=== PATIENT | female | born 1960 | race Caucasian/White ===

== ENCOUNTER 2017-06-25 10:16 | Inpatient (IN) ==
[2017-06-25] MEDS ORDERED: 0.9 % Sodium Chloride 1,000 ML IVC ONE (11:00)
[2017-06-25] MEDS ORDERED: methylPREDNISolone 125 MG/2 ML VIAL IVP ONE (11:00)
[2017-06-25] MEDS ORDERED: levoFLOXacin 750 MG TABLET PO ONE (11:00)
[2017-06-25] MEDS ORDERED: Ipratropium/Albuterol Neb 3 ML IH ONE (11:01)
[2017-06-25] MEDS ORDERED: Ipratropium/Albuterol Neb 3 ML ONE (11:02)
[2017-06-25 11:12] LABS: Basophils % 0.5 %; Eosinophils # 0.1 K/mcL (0.0-0.6); Eosinophils % 1.1 %; Hematocrit 44.1 % (35.3-44.9); Hemoglobin 14.6 g/dL (11.5-15.4); Immature Granulocytes % 0.4 % (0-4); Lymphocytes # 2.7 K/mcL (0.6-4.6); Lymphocytes % 33.7 %; Mean Corpuscular HGB Conc 33.1 g/dL (31.6-35.5); Mean Corpuscular Hemoglobin 29.4 pg (28.0-33.3); Mean Corpuscular Volume 88.9 fL (83.0-100.0); Mean Platelet Volume 9.4 fL (9.4-12.4); Monocytes # 0.3 K/mcL (0.0-1.3); Monocytes % 4.1 %; Neutrophils # 4.9 K/mcL (1.6-8.9); Platelet Count 231 K/mcL (140-400); Red Blood Count 4.96 M/mcL (3.82-4.97); Segmented Neutrophils % 60.2 %
[2017-06-25 11:18] LABS: INR 0.9; Prothrombin Time 9.2 Seconds (9.4-12.1)
[2017-06-25 11:21] LABS: Activated Partial Thrombo Time 27.3 Seconds (26.0-36.0)
[2017-06-25 11:33] LABS: BUN/Creatinine Ratio 24 (6-26); Blood Urea Nitrogen 15 mg/dL (6-20); Calcium 9.4 mg/dL (8.6-10.3); Carbon Dioxide 24 mEq/L (23-29); Chloride 103 mEq/L (98-107); Glucose 205 mg/dL (70-105); Osmolality,Calculated 287 (280-300); Potassium 4.2 mEq/L (3.5-5.1); Sodium 135 mEq/L (136-145); eGFR For Non-African Americans > 60 (> 60)
[2017-06-25] MEDS ORDERED: Azithromycin 500 MG in D5% in Water 250 ML IVPB ONE (11:49)
[2017-06-25 12:36] LABS: Bilirubin,Urine Negative (Negative); Blood,Urine Negative (Negative); Clarity,Urine Clear (Clear); Color,Urine Yellow (Yellow); Glucose,Urine (UA) 100 mg/dL (Normal); Ketones,Urine Negative (Negative); Leukocyte Esterase,Urine Negative (Negative); Nitrite,Urine Negative (Negative); Protein,Urine Negative (Neg-Trace); Specific Gravity,Urine 1.009 (1.010-1.025); Urobilinogen,Urine Normal (Normal)
--- NOTE | 2017-06-25 14:16 | Emergency Department Note ---
Disposition Clinical Impression: Acute exacerbation of chronic obstructive airways disease, Hypoxia Disposition: Admitted As Inpatient Condition: Fair Referrals: Patti Mccarty CNP [Primary Care Provider] - Time of Disposition: 14:32 SOB HPI - General Chief Complaint: ED Shortness of Breath/Dyspnea Stated Complaint: SOB/CP Time Seen by Provider: 06/25/17 10:29 Source: patient Mode of arrival: wheelchair Limitations: no limitations Nursing Notes Reviewed: Yes Vital Signs Reviewed: Yes - History of Present Illness Patient presents from her proposal coordinator office for evaluation of shortness of breath. Patient was seen in the facility today and she had a pulse ox in the 60 % range. Concern about a severe COPD exacerbation versus other etiology recommended she come to the emergency room. Over the last several days the patient has been describing other symptoms for which have been causing her to have some moderate respiratory distress. Pt Subjective Complaint: shortness of breath Onset (ago): day(s) Severity: moderate Consistency/Duration: constant Improves with: nothing Worsens with: lying flat, exertion Known history of: COPD Associated symptoms: Reports: chest pain, cough, wheezing Cough present: Yes Cough Description: Voluntary Cough Frequency: Intermittent Sputum production: No - Related Data Home Medications Medication Instructions Recorded Confirmed Albuterol Sulfate [Ventolin Hfa] 2 puff IH Q4H PRN 06/12/17 06/25/17 Alogliptin Benzoate [Alogliptin] 25 mg PO DAILY 06/12/17 06/25/17 Atorvastatin [Lipitor] 40 mg PO HS 06/12/17 06/25/17 Cholecalciferol (D-3) [Vitamin D] 1,000 mg PO DAILY 06/12/17 06/25/17 Gabapentin [Neurontin] 300 mg PO TID 06/12/17 06/25/17 Metformin HCl [Glucophage] 1,000 mg PO BID 06/12/17 06/25/17 Omeprazole [PriLOSEC] 20 mg PO DAILY 06/12/17 06/25/17 Ropinirole HCl [Requip] 0.5 mg PO HS 06/12/17 06/25/17 Tizanidine HCl 4 mg PO HS 06/12/17 06/25/17 Umeclidinium [place] [Incruse 1 puff IH DAILY 06/12/17 06/25/17 Ellipta] Venlafaxine HCl [Venlafaxine HCl 75 mg PO DAILY 06/12/17 06/25/17 ER] Previous Rx's Medication Instructions Recorded OxyCODONE/APAP 5/325 [Percocet 1 each PO Q6HR PRN 7 Days #14 06/12/17 5/325 MG] tablet Allergies Allergy/AdvReac Type Severity Reaction Status Date / Time Penicillins Allergy Swelling Verified 06/12/17 10:35 of Lip/Tongue/Throat acetaminophen [From Lortab] AdvReac Nausea Verified 06/12/17 10:35 hydrocodone [From Lortab] AdvReac Nausea Verified 06/12/17 10:35 levofloxacin [From Levaquin] AdvReac See Verified 06/12/17 10:35 Comments All systems ED: reviewed and negative except as stated. Review of Systems: As Per HPI Constitutional: Denies: fever, chills Cardiovascular: Reports: chest pain, palpitations, dyspnea on exertion. Denies : orthopnea, edema Respiratory: Reports: cough, dyspnea, wheezes. Denies: hemoptysis, stridor, sputum production Gastrointestinal: Denies: nausea, vomiting, diarrhea Genitourinary: Denies: urgency, dysuria Musculoskeletal: Denies: back pain, neck pain Neurological: Denies: headache, weakness Endocrine: Denies: fatigue Past Medical History - Past Medical History Attestation: Yes The following information was validated with the patient. Source: patient Medical history: Reports: COPD, diabetes, hyperlipidemia Surgical history: Reports: other Psychiatric history: Reports: anxiety, depression [employer] history: Reports: bilateral tubal ligation - Social History Smoking Status: Current every day smoker Smokeless Tobacco Status: No Alcohol use: Reports: none Drug use: Reports: none Physical Exam - General Limitations: no limitations General appearance: alert - Head Head exam: atraumatic, normocephalic, normal inspection - Neck Neck exam: Present: normal inspection, full ROM, trachea midline - Chest Chest inspection: Present: normal inspection, symmetric chest wall rise - Respiratory Respiratory exam: Present: respiratory distress, wheezes, accessory muscle use. Absent: stridor - Cardiovascular Cardiovascular exam: Present: regular rate, normal rhythm, normal heart sounds - Abdominal Exam Abdominal exam: Present: soft, Non-Tender, normal bowel sounds. Absent: tenderness, distention, guarding, rebound, rigidity - Extremities Exam Extremities exam: Present: normal inspection, full ROM, normal capillary refill. Absent: tenderness, pedal edema - Back Exam Back exam: Present: normal inspection, full ROM. Absent: tenderness - Neurological Exam Neurological exam: Present: alert, oriented X3, CN II-XII intact, normal gait - Skin Skin exam: Present: warm, dry, intact, normal color Course Course Narrative: Patient seen and examined the time of arrival. See history of present illness. 57-year-old female presents emergency room with complaint of hypoxia and increased work of breathing chest discomfort and shortness of breath. Patient was seen her proposal coordinator office today. They are concerned and called over the emergency room recommend the patient come for evaluation. On presentation here patient is sitting upright in the bed she has significant orthopnea. She feels that there is a tightness inside of her chest and does not want to take a full breath). Her pulse ox drops into the 60 percentile range when she is taking off her nasal cannula. Patient does not have oxygen at home. Vital signs appear to be stable at this time. Her lungs are significantly diminished at this point. She does not move air very well. She denies any reproducible chest pain on exam. Her abdomen is soft nontender nondistended no pulsatile lesions or masses. Patient will be provided breathing treatments steroids in reevaluation here in the emergency room. CT angiography an EKG on cardiac evaluation will be completed at the request of proposal coordinator. Disposition will be admission off over definitive management. IV azithromycin will be started in the emergency room. She does have clinical allergies to levofloxacin and has significant anaphylactic reaction to beta lactams. The LAD on any adjuvant of antibiotics as needed for symptomatic control. Patient is otherwise resting comfortably in the bed but does have some positional orthopnea and tightness in her chest wall. Symptoms present for greater than 3 days and a negative cardiac evaluation here definitively rules out cardiac related illness or disease. Disposition will be determined once the workup is completed and established. - Reevaluation(s) Reevaluation #1: Patient's labs are unremarkable this point. CT angiography confirms it appears to be significant emphysematous disease. The treatments were given on steroids the patient has some mild resolution of the symptoms was still sitting upright in the bed. Troponin is negative. Hospitalist was paged at this time. Admission process. No other acute issues noted this time. Time: 14:28 Reevaluation #2: Patient was discussed with the hospitalist Dr. Garcia. no other recommendations are se is noted this time. Patient willbe admitted for definitive management of what appears to be COPD exacerban and hypoxia Time: 15:09 Vital Signs Temperature 98 F 06/25/17 10:17 Pulse Rate 88 06/25/17 10:17 Respiratory Rate 20 06/25/17 10:17 Blood Pressure 154/97 06/25/17 10:17 O2 Sat by Pulse Oximetry 99 06/25/17 10:17 Temperature 98 F 06/25/17 10:17 Pulse Rate 89 06/25/17 13:36 Respiratory Rate 20 06/25/17 13:36 Blood Pressure 147/95 06/25/17 13:36 O2 Sat by Pulse Oximetry 94 06/25/17 13:36 Oxygen Delivery Oxygen Delivery Nasal Cannula Shortness of Breath/Dyspnea - MDM Narrative Medical decision making narrative: Patient has COPD exacerbation, hypoxia, emphysematous disease - Medical Records Medical records reviewed: Yes I reviewed the patient's medical records. - Lab Data Lab results reviewed: Yes I reviewed the patient's lab results. Result diagrams: 06/25/17 10:50 06/25/17 10:50 Lab Results 06/25/17 06/25/17 06/25/17 Range/Units 10:50 10:50 10:50 WBC 8.1 (4.3-11.1) K/mcL RBC 4.96 (3.82-4.97) M/mcL Hgb 14.6 (11.5-15.4) g/dL Hct 44.1 (35.3-44.9) % MCV 88.9 (83.0-100.0) fL MCH 29.4 (28.0-33.3) pg MCHC 33.1 (31.6-35.5) g/dL RDW 13.0 (11.5-14.5) % Plt Count 231 (140-400) K/mcL MPV 9.4 (9.4-12.4) fL Immature Gran % 0.4 (0-4) % Seg Neutrophils % 60.2 % Lymphocytes % 33.7 % Monocytes % 4.1 % Eosinophils % 1.1 % Basophils % 0.5 % Neutrophils # 4.9 (1.6-8.9) K/mcL Lymphocytes # 2.7 (0.6-4.6) K/mcL Monocytes # 0.3 (0.0-1.3) K/mcL Eosinophils # 0.1 (0.0-0.6) K/mcL Basophils # 0.0 (0.0-0.2) K/mcL PT 9.2 L (9.4-12.1) Seconds INR 0.9 APTT 27.3 (26.0-36.0) Seconds Carboxyhemoglobin (0-5) % Sodium 135 L (136-145) mEq/L Potassium 4.2 (3.5-5.1) mEq/L Chloride 103 (98-107) mEq/L Carbon Dioxide 24 (23-29) mEq/L BUN 15 (6-20) mg/dL Creatinine 0.62 (0.60-1.20) mg/dL Est GFR ( Amer) > 60 (> 60) Est GFR (Non-Af Amer) > 60 (> 60) BUN/Creatinine Ratio 24 (6-26) Glucose 205 H (70-105) mg/dL Calculated Osmolality 287 (280-300) Lactic Acid (0.5-2.2) mmol/L Calcium 9.4 (8.6-10.3) mg/dL Troponin I (< 0.04) ng/mL B-Natriuretic Peptide (Less than 100) pg/mL Urine Color (Yellow) Urine Clarity (Clear) Urine pH (5.0-8.0) pH Units Ur Specific [place] (1.010-1.025) Urine Protein (Neg-Trace) mg/dL Urine Glucose (UA) (Normal) mg/dL Urine Ketones (Negative) mg/dL Urine Blood (Negative) Urine Nitrite (Negative) Urine Bilirubin (Negative) Urine Urobilinogen (Normal) mg/dL Ur Leukocyte Esterase (Negative) Ur Culture Indicated? (NO) 06/25/17 06/25/17 06/25/17 Range/Units 10:50 10:50 10:50 WBC (4.3-11.1) K/mcL RBC (3.82-4.97) M/mcL Hgb (11.5-15.4) g/dL Hct (35.3-44.9) % MCV (83.0-100.0) fL MCH (28.0-33.3) pg MCHC (31.6-35.5) g/dL RDW (11.5-14.5) % Plt Count (140-400) K/mcL MPV (9.4-12.4) fL Immature Gran % (0-4) % Seg Neutrophils % % Lymphocytes % % Monocytes % % Eosinophils % % Basophils % % Neutrophils # (1.6-8.9) K/mcL Lymphocytes # (0.6-4.6) K/mcL Monocytes # (0.0-1.3) K/mcL Eosinophils # (0.0-0.6) K/mcL Basophils # (0.0-0.2) K/mcL PT (9.4-12.1) Seconds INR APTT (26.0-36.0) Seconds Carboxyhemoglobin (0-5) % Sodium (136-145) mEq/L Potassium (3.5-5.1) mEq/L Chloride (98-107) mEq/L Carbon Dioxide (23-29) mEq/L BUN (6-20) mg/dL Creatinine (0.60-1.20) mg/dL Est GFR ( Amer) (> 60) Est GFR (Non-Af Amer) (> 60) BUN/Creatinine Ratio (6-26) Glucose (70-105) mg/dL Calculated Osmolality (280-300) Lactic Acid 2.1 (0.5-2.2) mmol/L Calcium (8.6-10.3) mg/dL Troponin I < 0.03 (< 0.04) ng/mL B-Natriuretic Peptide 35 (Less than 100) pg/mL Urine Color (Yellow) Urine Clarity (Clear) Urine pH (5.0-8.0) pH Units Ur Specific [place] (1.010-1.025) Urine Protein (Neg-Trace) mg/dL Urine Glucose (UA) (Normal) mg/dL Urine Ketones (Negative) mg/dL Urine Blood (Negative) Urine Nitrite (Negative) Urine Bilirubin (Negative) Urine Urobilinogen (Normal) mg/dL Ur Leukocyte Esterase (Negative) Ur Culture Indicated? (NO) 06/25/17 06/25/17 Range/Units 10:50 12:17 WBC (4.3-11.1) K/mcL RBC (3.82-4.97) M/mcL Hgb (11.5-15.4) g/dL Hct (35.3-44.9) % MCV (83.0-100.0) fL MCH (28.0-33.3) pg MCHC (31.6-35.5) g/dL RDW (11.5-14.5) % Plt Count (140-400) K/mcL MPV (9.4-12.4) fL Immature Gran % (0-4) % Seg Neutrophils % % Lymphocytes % % Monocytes % % Eosinophils % % Basophils % % Neutrophils # (1.6-8.9) K/mcL Lymphocytes # (0.6-4.6) K/mcL Monocytes # (0.0-1.3) K/mcL Eosinophils # (0.0-0.6) K/mcL Basophils # (0.0-0.2) K/mcL PT (9.4-12.1) Seconds INR APTT (26.0-36.0) Seconds Carboxyhemoglobin 11.4 H (0-5) % Sodium (136-145) mEq/L Potassium (3.5-5.1) mEq/L Chloride (98-107) mEq/L Carbon Dioxide (23-29) mEq/L BUN (6-20) mg/dL Creatinine (0.60-1.20) mg/dL Est GFR ( Amer) (> 60) Est GFR (Non-Af Amer) (> 60) BUN/Creatinine Ratio (6-26) Glucose (70-105) mg/dL Calculated Osmolality (280-300) Lactic Acid (0.5-2.2) mmol/L Calcium (8.6-10.3) mg/dL Troponin I (< 0.04) ng/mL B-Natriuretic Peptide (Less than 100) pg/mL Urine Color Yellow (Yellow) Urine Clarity Clear (Clear) Urine pH 6.0 (5.0-8.0) pH Units Ur Specific [place] 1.009 L (1.010-1.025) Urine Protein Negative (Neg-Trace) mg/dL Urine Glucose (UA) 100 H (Normal) mg/dL Urine Ketones Negative (Negative) mg/dL Urine Blood Negative (Negative) Urine Nitrite Negative (Negative) Urine Bilirubin Negative (Negative) Urine Urobilinogen Normal (Normal) mg/dL Ur Leukocyte Esterase Negative (Negative) Ur Culture Indicated? NO (NO) - Radiology Data Radiology results reviewed: Yes I reviewed the patient's radiology results. CT angiography of the chest confirms bronchitis with no acute signs of pulmonary emboli or infiltrate. Emphysematous disease is noted - EKG Data EKG attestation: Yes I reviewed and interpreted this EKG. EKG results narrative: EKG shows sinus rhythm. Ventricular rate of 86. MS interval 188. QRS duration of 84. QTc of 418. And nose appear to be stable. Slight deviation and T-wave inversion in the precordial leads. No acute signs of ST segment elevation or abnormality at this time. No comparable study. No acute signs of WPW or Brugada syndrome.
[2017-06-25] MEDS ORDERED: Naloxone 0.4 MG/ML INJ IVP PRN (18:16)
--- NOTE | 2017-06-25 18:18 | Event Note ---
Date of Encounter: 06/25/17 Time of Encounter: 18:17 With COPD exacerbation and Hypoxia Agree with plan as documented in [facility] documentation
[2017-06-25] MEDS ORDERED: *HR* Dextrose 50 % in Water (Syg) 50 ML SYRINGE IVP PRN (18:25)
[2017-06-25] MEDS ORDERED: D5% in Water 1,000 ML IVC PRN (18:25)
[2017-06-25] MEDS ORDERED: Dextrose Gel 15 GM/37.5 ML TUBE PO PRN ×2 (18:25)
[2017-06-25] MEDS ORDERED: Insulin LISPRO 300 UNITS/3 ML VIAL SQ SCH (21:00)
[2017-06-25] MEDS: Gabapentin 300 MG CAPSULE PO SCH (21:19)
[2017-06-25] MEDS: tiZANidine 4 MG TABLET PO SCH (21:19)
[2017-06-25] MEDS: rOPINIRole 1 MG TABLET PO SCH (21:22)
[2017-06-25] MEDS: Levalbuterol Neb 1.25 MG/3 ML IH SCH (21:24)
--- NOTE | 2017-06-25 22:30 | Internal Med History&Physical ---
Date of Encounter: 06/25/17 Time of Encounter: 17:00 Assessment and Plan (1) Acute exacerbation of chronic obstructive airways disease Current visit: Yes Status: Acute Acute exacerbation of COPD. SpO2 in 60's on admission. Supplemental O2 with titration and SPO2 monitoring. Xopenex 1.25 every 6 when necessary. Methylprednisolone 80 mg IVP every 8 hours. Azithromycin IVPB 500 mg daily for bronchitis infection coverage. Continue patient's inhalers. Falls precautions/ up with assist/bedrest with bathroom privileges with assist only due to patient' s reported weakness and instability due to SOB. PT/OT consults ordered to assess patient's ambulation strength, stability, and safety. SW consult to assess pts. need for home O2. Monitor pt. for signs of hypoxia. Monitor f/u labs. Pt. discussed w/Dr. Garcia who agrees w/plan of care. Pt. is high risk for further morbidity and respiratory distress/failure d/t current COPD exacerbation, current tobacco abuse, current bronchitis, hx, and risk factors. Inpatient. (2) Hypoxia Current visit: Yes Status: Acute Acute hypoxia r/t COPD exacerbation and bronchitis. SpO2 in 60's on admission. Pt. denies home O2 use. Supplemental O2 w/titration and SpO2 monitoring. Xopenex 1.25 Q6 PRN. Pt. to be monitored closely. SW consult ordered to assess for home O2 needs. (3) Bronchitis Current visit: Yes Status: Acute Acute bronchitis. Pt. reports cough and SOB/dyspnea. IVPB azithromycin 500 mg daily for infection coverage. (4) Tobacco abuse counseling Current visit: Yes Status: Acute Patient counseled >10 minutes regarding the need to quit smoking based on current health and COPD/emphysema. Methods for smoking cessation discussed with patient who is in agreement for the need to quit. 21 mg nicotine patch ordered daily. (5) Weakness Current visit: Yes Status: Acute Acute weakness d/t SOB/Dyspnea. Supplemental O2 with titration and SPO2 monitoring. Social work consult to assess patient for home oxygen. PT/OT consults to assess patient for ambulation strength, stability, safety. Falls/ safety precautions, up with assist, and bedrest with bathroom privileges with assist only. (6) Diabetes Current visit: Yes Status: Chronic Hx of chronic DM controlled w/oral medications. Hold oral and administer low- dose correction insulin sliding scale w/hypoglycemic protocol. BG checks ACHS. A1c in a.m. labs. Qualifiers: Diabetes mellitus type: type 2 Diabetes mellitus complication status: with unspecified complications Diabetes mellitus manager long term care insulin use: without half-way use Qualified Code(s): E11.8 - Type 2 diabetes mellitus with unspecified complications (7) HLD (hyperlipidemia) Current visit: Yes Status: Chronic Hx of chronic HLD. Lipid panel in a.m. labs. Continue patient's Lipitor. Qualifiers: Hyperlipidemia type: pure hypercholesterolemia Qualified Code(s): E78.00 - Pure hypercholesterolemia, unspecified; E78.0 - Pure hypercholesterolemia (8) DVT prophylaxis Current visit: Yes Status: Acute Bilateral SCDs on LEs for DVT prophylaxis d/t pts. reports of bleeding w/BMs. Monitor pt. for signs of bleeding. Monitor I&O. Internal Medicine - H&P: HPI Chief complaint: SOB/Dyspnea Admitted From: Emergency Dept Plans for Post Hospital Care: Home History of present illness: Ms. Morrison is a 57 year old female w/PMH of COPD, diabetes controlled with oral antihyperglycemic medications, and hyperlipidemia presents from the ED with chief complaint shortness of breath and dyspnea for the past 3 days. Pt. reports chronic SOB but states sx worse over the past 72 hours. Pt. reports worse w/exertion. Denies home O2 use. Reports cough/wheezing and occasional bright blood w/bowel movements. Reports some difficulty/pressure w/BMs. Pt. denies recent illness, fever, chills, nausea, vomiting, chest pain, palpitations , orthopnea, edema, headache, changes in vision, numbness, tingling, abdominal pain, diarrhea, constipation, dizziness, lightheadedness, pre-syncope, or syncope. Past Med Surg Social Fam HX - Past Medical History Source: patient, old records reviewed, obtained from family Medical history: COPD, diabetes, hyperlipidemia Psychiatric history: anxiety, depression - Past Surgical History Surgical History: cholecystectomy, other - Social History Smoking Status: Current every day smoker Packs per day: 2-3 PPD Smokeless Tobacco Status: No Alcohol use: occasionally Drug use: marijuana Current living situation: Home Activity Level: Independent ambulation Recent Out of Country Travel Within the Last 8 Weeks: No Exposure or Possible Exposure to Illness During Travel: No - Family History Mother Name: Shi Morrison Age: 76 Race: Family Member Ethnicity: Non- Living Status: Still Living Hx Family Cardiac Disorders: Yes (Stents, HTN, HLD) Hx Family Respiratory Disorders: Yes (COPD) Hx Family Endocrine Disorder: Yes (DM) Father Race: Family Member Ethnicity: Non- Living Status: Age at : 62 Cause of : Bladder cancer Hx Family Cancer: Yes (Bladder) Grandmother Race: Family Member Ethnicity: Non- Living Status: Cause of : DM Hx Family Endocrine Disorder: Yes (DM) Brother Race: Family Member Ethnicity: Non- Living Status: Still Living Hx Family Cardiac Disorders: Yes (CVA, HLD) Hx Family Respiratory Disorders: Yes (COPD/Emphysema) Sister Race: Family Member Ethnicity: Non- Living Status: Still Living Hx Family Medical Disorders: Yes (Obesity) Internal Medicine - H&P: Meds Albuterol Sulfate [Ventolin Hfa] 2 puff IH Q4H PRN 06/12/17 [History] Alogliptin Benzoate [Alogliptin] 25 mg PO DAILY 06/12/17 [History] Atorvastatin [Lipitor] 40 mg PO HS 06/12/17 [History] Cholecalciferol (D-3) [Vitamin D] 1,000 mg PO DAILY 06/12/17 [History] Gabapentin [Neurontin] 300 mg PO TID 06/12/17 [History] Metformin HCl [Glucophage] 1,000 mg PO BID 06/12/17 [History] Omeprazole [PriLOSEC] 20 mg PO DAILY 06/12/17 [History] OxyCODONE/APAP 5/325 [Percocet 5/325 MG] 1 each PO Q6HR PRN 7 Days #14 tablet [Rx] Ropinirole HCl [Requip] 0.5 mg PO HS 06/12/17 [History] Tizanidine HCl 4 mg PO HS 06/12/17 [History] Umeclidinium [place] [Incruse [place]] 1 puff IH DAILY 06/12/17 [History] Venlafaxine HCl [Venlafaxine HCl ER] 75 mg PO DAILY 06/12/17 [History] 3 Allergy/AdvReac Type Severity Reaction Status Date / Time Penicillins Allergy Swelling Verified 06/12/17 10:35 of Lip/Tongue/Throat acetaminophen [From Lortab] AdvReac Nausea Verified 06/12/17 10:35 hydrocodone [From Lortab] AdvReac Nausea Verified 06/12/17 10:35 levofloxacin [From Levaquin] AdvReac See Verified 06/12/17 10:35 Comments All Systems PM: A 10-system review of systems was performed and is negative for pertinent findings except as documented above in the HPI. - Constitutional Constitutional: no chills, no fever(s), no night sweats - EENT Eyes: no change in vision, no discharge, no pain, no photophobia Ears: no ear discharge, no ear pain, no tinnitus Nose, mouth and throat: no dysphagia, no nasal discharge, no neck pain, no sore throat - Breasts Breasts: as per HPI - Cardiovascular Cardiovascular ROS IM: as per HPI, dyspnea, dyspnea on exertion, no chest pain, no diaphoresis, no lightheadedness, no palpitations, no syncope - Respiratory Respiratory: as per HPI, cough, dyspnea, dyspnea on exertion, wheezing, pain with cough, no excessive phlegm production - Gastrointestinal Gastrointestinal: as per HPI, hematochezia, no abdominal pain, no diarrhea, no hematemesis, no melena, no nausea, no vomiting - Genitourinary Genitourinary: no change in urinary stream, no dysuria, no flank pain, no hematuria Menstruation: as per HPI - Musculoskeletal Musculoskeletal ROS IM: no numbness, no tingling - Integumentary Integumentary IM: no rash, no unusual bruising - Neurological Neurological ROS: no confusion, no convulsions, no focal weakness, no numbness, no tingling, no tremor(s) - Psychiatric Psychiatric: as per HPI, anxiety, depression - Endocrine Endocrine IM: as per HPI - Hematologic/Lymphatic Hematologic/Lymphatic: no easy bruising - Allergic/Immunologic Allergic/Immunologic: as per HPI - Constitutional Vitals: Temp Pulse Resp BP Pulse Ox 97.9 F 69 17 146/71 98 06/25/17 19:26 06/25/17 19:26 06/25/17 21:25 06/25/17 19:26 06/25/17 21:25 General appearance: Present: cooperative, mild distress (Respiratory), A&O X 3, pleasant, answers questions appropriately - Head Head exam: Present: atraumatic, normocephalic - Eye Eye exam: Present: PERRL, conjuntiva pink, sclera anicteric Pupils: Present: PERRL - ENT ENT exam: Present: normal exam - Neck Neck exam general surgery: Present: normal inspection, supple, trachea midline. Absent: lymphadenopathy - Respiratory Respiratory exam: Present: accessory muscle use, decreased breath sounds, wheezes. Absent: rales, rhonchi - Cardiovascular Cardiovascular exam: Present: RRR, +S1, +S2. Absent: diastolic murmur, gallop, rubs, systolic murmur - GI/Abdominal GI/Abdominal exam: Present: normal bowel sounds, soft, no peritoneal signs. Absent: distended, tenderness - Rectal Rectal exam: Present: deferred - Additional comments: exam deferred. - Extremities Exam Extremities exam: Present: warm, radial pulses palpable and symmetrical. Absent : calf tenderness, cyanotic, pedal edema - Back Exam Back exam: Present: normal inspection - Neurological Exam Neurological exam: Present: CN II-XII intact, oriented X3, no focal deficits. Absent: pronater drift, facial droop, speech deficit - Psychiatric Psychiatric exam: Present: normal affect, normal mood - Skin Skin exam: Present: dry, intact Internal Med - H&P Results - Labs CBC & Chem 7: 06/25/17 10:50 06/25/17 10:50 - EKG Data EKG shows normal: sinus rhythm - EKG Data Prior EKG available for review: no Interpretation IM: suggestive of ischemia EKG comments: 06/25/17 23:15 EKG dated 06/25/17 sinus rhythm and septal myocardial infarction, probably old. - Diagnostic Studies Chest x-ray Additional comments: Impressions Chest X-Ray 06/25/17 11:00 IMPRESSION: No evidence for acute cardiopulmonary process. D/ / Dwight Mccarty MD / Dwight Mccarty MD Interpreting Provider: Dwight Mccarty MD Other Images Additional comments: Impressions Chest CTA 06/25/17 12:53 IMPRESSION: No evidence of pulmonary embolism or acute pulmonary abnormality. Moderate centrilobular and paraseptal emphysema with smoking-related airway inflammation, progressive since 2009. Layering secretions within the proximal mainstem bronchi. Query aspiration risk. No consolidative airspace disease. D/ / 06/25/2017 13:43:24 Bipin Robb / Mercedes Houston Interpreting Provider: Bipin Robb
[2017-06-25] MEDS: Nicotine 21 MG PATCH.TD24 TD SCH (22:37)
[2017-06-25] MEDS: methylPREDNISolone 125 MG/2 ML VIAL IVP SCH (22:37)
[2017-06-26] MEDS: Levalbuterol Neb 1.25 MG/3 ML IH SCH ×4 (03:35→22:12)
[2017-06-26 06:49] LABS: Basophils % 0.1 %; Hematocrit 39.4 % (35.3-44.9); Hemoglobin 13.3 g/dL (11.5-15.4); Immature Granulocytes % 0.7 % (0-4); Lymphocytes % 7.5 %; Mean Corpuscular HGB Conc 33.8 g/dL (31.6-35.5); Mean Corpuscular Hemoglobin 29.4 pg (28.0-33.3); Mean Platelet Volume 9.9 fL (9.4-12.4); Monocytes # 0.1 K/mcL (0.0-1.3); Monocytes % 0.8 %; Neutrophils # 12.5 K/mcL (1.6-8.9); Platelet Count 228 K/mcL (140-400); Red Blood Count 4.53 M/mcL (3.82-4.97); Red Cell Distribution Width 13.1 % (11.5-14.5); Segmented Neutrophils % 90.9 %
[2017-06-26 07:05] LABS: Alanine Aminotransferase 13 Units/L (7-52); Albumin 3.8 g/dL (3.5-5.7); Albumin/Globulin Ratio 1.4 (1.1-2.2); Alkaline Phosphatase 121 Units/L (34-104); Aspartate Amino Transferase 10 Units/L (13-39); BUN/Creatinine Ratio 28 (6-26); Bilirubin,Total 0.2 mg/dL (0.3-1.0); Blood Urea Nitrogen 19 mg/dL (6-20); Calcium 9.5 mg/dL (8.6-10.3); Carbon Dioxide 23 mEq/L (23-29); Chloride 101 mEq/L (98-107); Chol/HDL Ratio 8.5 (0-4.9); Cholesterol 331 mg/dL (< 200); Globulin 2.7 g/dL (2.4-3.5); Glucose 417 mg/dL (70-105); HDL Cholesterol 39 mg/dL (40-59); LDL Cholesterol,Calculated 216 mg/dL (0-99); Magnesium 1.8 mg/dL (1.6-2.6); Osmolality,Calculated 294 (280-300); Potassium 4.2 mEq/L (3.5-5.1); Sodium 132 mEq/L (136-145); Total Protein 6.5 g/dL (6.4-8.9); Triglycerides 380 mg/dL (< 150); eGFR For Non-African Americans > 60 (> 60)
[2017-06-26] MEDS: methylPREDNISolone 125 MG/2 ML VIAL IVP SCH ×2 (09:07→16:12)
[2017-06-26] MEDS: Nicotine 21 MG PATCH.TD24 TD SCH (09:08)
[2017-06-26] MEDS: Cholecalciferol (D-3) 1,000 UNIT TABLET PO SCH (09:08)
[2017-06-26] MEDS: Gabapentin 300 MG CAPSULE PO SCH ×3 (09:08→20:48)
[2017-06-26] MEDS: Venlafaxine XR (24 HR) 75 MG CAP.ER.24H PO SCH (09:08)
[2017-06-26] MEDS: Insulin LISPRO 300 UNITS/3 ML VIAL SQ SCH ×4 (09:09→20:47)
[2017-06-26] MEDS: (Alogliptin Benzoate [Alogliptin] 25 MG) PO SCH (09:09)
[2017-06-26] MEDS: (Umeclidinium Bromide [Incruse Ellipta] 1 PUFF) IH SCH (09:09)
[2017-06-26 10:55] LABS: Hemoglobin A1C 8.2 %
[2017-06-26] MEDS: *HR* OxyCODONE/APAP 5/325 TABLET PO PRN ×2 (11:03→18:11)
[2017-06-26] MEDS: Azithromycin 500 MG in D5% in Water 250 ML IVPB SCH (11:03)
--- NOTE | 2017-06-26 12:00 | Internal Med Progress Note ---
Date of Encounter: 06/26/17 Time of Encounter: 12:00 - Assessment and plan (1) Acute exacerbation of chronic obstructive airways disease Current Visit: Yes Status: Acute Assessment and plan: 1 agent was initially hypoxic when arriving to the ER we will continue with supplemental oxygen maintaining SPO2 greater than 90%. Xopenex as needed Steroid Solu-Medrol 80 IV every 8 hours Azithromycin IV as needed for bronchitis infection coverage We will add Acapella per respiratory therapy (2) Bronchitis Current Visit: Yes Status: Acute Assessment and plan: Continue with the azithromycin (3) Hypoxia Current Visit: Yes Status: Acute Assessment and plan: 1 continue with oxygen as well as Xopenex (4) Tobacco abuse counseling Current Visit: Yes Status: Acute (5) Weakness Current Visit: Yes Status: Acute Assessment and plan: Patient requiring supplemental oxygen-she may require home oxygen social work consult to assess patient home oxygen needs PT OT for strengthening (6) Diabetes Current Visit: Yes Status: Chronic Assessment and plan: Hold oral medications -patient is on steroids we will place on site scale insulin Accu-Cheks before meals at bedtime Qualifiers: Diabetes mellitus type: type 2 Diabetes mellitus complication status: with unspecified complications Diabetes mellitus fpc insulin use: without fpc use Qualified Code(s): E11.8 - Type 2 diabetes mellitus with unspecified complications (7) HLD (hyperlipidemia) Current Visit: Yes Status: Chronic Assessment and plan: History of chronic hyperlipidemia continue with statin Qualifiers: Hyperlipidemia type: pure hypercholesterolemia Qualified Code(s): E78.00 - Pure hypercholesterolemia, unspecified; E78.0 - Pure hypercholesterolemia (8) DVT prophylaxis Current Visit: Yes Status: Acute Assessment and plan: Bilateral SCDs history of bleeding with BMs we will continue to monitor for signs and symptoms of bleeding - Subjective Interval history: Patient examined at bedside. Patient is sitting up in bed does not appear to be in any resp distress. Does complain of SOB and feels "constricted" when she breaths. Denies any cough or sputum production. - Constitutional Vitals: Temp Pulse Resp BP Pulse Ox 97.4 F L 118 17 178/78 94 06/26/17 11:25 06/26/17 11:25 06/26/17 11:25 06/26/17 11:25 06/26/17 11:25 General appearance: Present: cooperative, mild distress (Respiratory), A&O X 3, pleasant, answers questions appropriately - Head Head exam: Present: atraumatic, normocephalic - Eye Eye exam: Present: PERRL, conjuntiva pink, sclera anicteric Pupils: Present: PERRL - Neck Neck exam general surgery: Present: supple, trachea midline. Absent: lymphadenopathy - Respiratory Respiratory exam: Present: decreased breath sounds - Cardiovascular Cardiovascular exam: Present: RRR, +S1, +S2. Absent: diastolic murmur, gallop, rubs, systolic murmur - GI/Abdominal GI/Abdominal exam: Present: normal bowel sounds, soft, no peritoneal signs. Absent: distended, tenderness - Extremities Exam Extremities exam: Present: warm, radial pulses palpable and symmetrical. Absent : calf tenderness, cyanotic, pedal edema - Neurological Exam Neurological exam: Present: CN II-XII intact, oriented X3, no focal deficits. Absent: pronater drift, facial droop, speech deficit - Skin Skin exam: Present: dry, intact Internal Medicine: Result - Labs CBC & Chem 7: 06/26/17 05:25 06/26/17 05:25 Labs: Short CBC 06/26/17 Range/Units 05:25 WBC 13.8 H D (4.3-11.1) K/mcL Hgb 13.3 (11.5-15.4) g/dL Hct 39.4 (35.3-44.9) % Plt Count 228 (140-400) K/mcL Neutrophils # 12.5 H (1.6-8.9) K/mcL BMP 06/26/17 05:25 Sodium 132 L Potassium 4.2 Chloride 101 Carbon Dioxide 23 BUN 19 Creatinine 0.67 Glucose 417 H Calcium 9.5 Liver Function 06/26/17 Range/Units 05:25 Total Bilirubin 0.2 L (0.3-1.0) mg/dL AST 10 L (13-39) Units/L ALT 13 (7-52) Units/L Alkaline Phosphatase 121 H (34-104) Units/L Albumin 3.8 (3.5-5.7) g/dL - ABG Interpretation ABG results: PT/INR, D-dimer PT 9.2 Seconds (9.4-12.1) L 06/25/17 10:50 Consult Discharge Plan - Plan Referrals: Patti Mccarty, RESPIRATORY THERAPY ASSISTANT [Primary Care Provider] -
[2017-06-26] MEDS: Doxycycline 100 MG in 0.9 % Sodium Chloride Mini Bag 100 ML IVPB SCH (13:40)
[2017-06-26] MEDS: tiZANidine 4 MG TABLET PO SCH (20:48)
[2017-06-26] MEDS: rOPINIRole 1 MG TABLET PO SCH (20:48)
[2017-06-27] MEDS: *HR* OxyCODONE/APAP 5/325 TABLET PO PRN ×4 (00:12→22:19)
[2017-06-27] MEDS: Doxycycline 100 MG in 0.9 % Sodium Chloride Mini Bag 100 ML IVPB SCH ×2 (00:15→12:57)
[2017-06-27] MEDS: methylPREDNISolone 125 MG/2 ML VIAL IVP SCH ×3 (00:16→19:12)
[2017-06-27] MEDS: Levalbuterol Neb 1.25 MG/3 ML IH SCH ×4 (04:29→21:58)
[2017-06-27 06:19] LABS: Hematocrit 37.7 % (35.3-44.9); Hemoglobin 12.5 g/dL (11.5-15.4); Immature Granulocytes % 1.4 % (0-4); Lymphocytes % 5.8 %; Mean Corpuscular HGB Conc 33.2 g/dL (31.6-35.5); Mean Corpuscular Hemoglobin 29.7 pg (28.0-33.3); Mean Corpuscular Volume 89.5 fL (83.0-100.0); Mean Platelet Volume 9.8 fL (9.4-12.4); Monocytes % 1.2 %; Platelet Count 228 K/mcL (140-400); Red Blood Count 4.21 M/mcL (3.82-4.97); Red Cell Distribution Width 13.3 % (11.5-14.5); Segmented Neutrophils % 91.6 %
[2017-06-27 06:20] LABS: Lymphocytes # 1.2 K/mcL (0.6-4.6); Monocytes # 0.2 K/mcL (0.0-1.3); Neutrophils # 18.7 K/mcL (1.6-8.9)
[2017-06-27 07:04] LABS: Alanine Aminotransferase 18 Units/L (7-52); Albumin/Globulin Ratio 1.5 (1.1-2.2); Alkaline Phosphatase 108 Units/L (34-104); Aspartate Amino Transferase 16 Units/L (13-39); BUN/Creatinine Ratio 30 (6-26); Bilirubin,Total 0.3 mg/dL (0.3-1.0); Blood Urea Nitrogen 20 mg/dL (6-20); Calcium 9.6 mg/dL (8.6-10.3); Chloride 103 mEq/L (98-107); Globulin 2.6 g/dL (2.4-3.5); Glucose 348 mg/dL (70-105); Osmolality,Calculated 290 (280-300); Potassium 4.5 mEq/L (3.5-5.1); Sodium 132 mEq/L (136-145); Total Protein 6.6 g/dL (6.4-8.9); eGFR For Non-African Americans > 60 (> 60)
[2017-06-27] MEDS: Cholecalciferol (D-3) 1,000 UNIT TABLET PO SCH (08:42)
[2017-06-27] MEDS: Venlafaxine XR (24 HR) 75 MG CAP.ER.24H PO SCH (08:42)
[2017-06-27] MEDS: Gabapentin 300 MG CAPSULE PO SCH ×3 (08:43→20:15)
[2017-06-27] MEDS: Nicotine 21 MG PATCH.TD24 TD SCH (08:43)
[2017-06-27] MEDS: Insulin LISPRO 300 UNITS/3 ML VIAL SQ SCH ×5 (08:45→20:26)
[2017-06-27] MEDS: (Umeclidinium Bromide [Incruse Ellipta] 1 PUFF) IH SCH (08:59)
[2017-06-27] MEDS: (Alogliptin Benzoate [Alogliptin] 25 MG) PO SCH (08:59)
[2017-06-27 10:13] LABS: Carbon Dioxide 20 mEq/L (23-29)
[2017-06-27] MEDS: Azithromycin 500 MG in D5% in Water 250 ML IVPB SCH (10:14)
--- NOTE | 2017-06-27 13:45 | Internal Med Progress Note ---
Date of Encounter: 06/27/17 Time of Encounter: 13:40 - Assessment and plan (1) Acute exacerbation of chronic obstructive airways disease Current Visit: Yes Status: Acute Assessment and plan: 1 on oxygen at 2 L nasal cannula maintaining SPO2 greater than 90%. Xopenex as needed We will decrease steroids back to 40 mg every 12 hours Azithromycin IV as needed for bronchitis infection coverage We will add Acapella per respiratory therapy (2) Bronchitis Current Visit: Yes Status: Acute Assessment and plan: Continue with the azithromycin (3) Hypoxia Current Visit: Yes Status: Acute Assessment and plan: 1 improved continue with 2 L nasal cannula as well as bronchodilators Patient will require 6 minute walk test prior to discharge-to qualify for home oxygen (4) Tobacco abuse counseling Current Visit: Yes Status: Acute Assessment and plan: Encouraged patient to stop smoking continue with nicotine patch (5) Weakness Current Visit: Yes Status: Acute Assessment and plan: Patient requiring supplemental oxygen-she may require home oxygen social work consult to assess patient home oxygen needs PT OT for strengthening (6) Diabetes Current Visit: Yes Status: Chronic Assessment and plan: Hold oral medications -patient is on steroids we will place on site scale insulin Accu-Cheks before meals at bedtime Qualifiers: Diabetes mellitus type: type 2 Diabetes mellitus complication status: with unspecified complications Diabetes mellitus local intermodal truck driver insulin use: without half-way use Qualified Code(s): E11.8 - Type 2 diabetes mellitus with unspecified complications (7) HLD (hyperlipidemia) Current Visit: Yes Status: Chronic Assessment and plan: History of chronic hyperlipidemia continue with statin Qualifiers: Hyperlipidemia type: pure hypercholesterolemia Qualified Code(s): E78.00 - Pure hypercholesterolemia, unspecified; E78.0 - Pure hypercholesterolemia (8) DVT prophylaxis Current Visit: Yes Status: Acute Assessment and plan: Bilateral SCDs history of bleeding with BMs we will continue to monitor for signs and symptoms of bleeding (9) Leukocytosis Current Visit: Yes Status: Acute Assessment and plan: Past rise in white count 13 220 suspect this is related to steroid use will decrease IV steroids continue to monitor Qualifiers: Leukocytosis type: unspecified Qualified Code(s): D72.829 - Elevated white blood cell count, unspecified - Time Spent With Patient less than 15 minutes - Subjective Interval history: Patient examined at bedside. Does not appear to be in any respiratory distress she does complain of some neck and back tightness and pain. Denies any cough shortness of breath this time. She is on 2 L nasal cannula maintaining sats greater than 88% - Constitutional Vitals: Temp Pulse Resp BP Pulse Ox 99.2 F 95 16 136/72 95 06/27/17 11:45 06/27/17 11:45 06/27/17 11:45 06/27/17 07:43 06/27/17 11:45 General appearance: Present: cooperative, mild distress (Respiratory), A&O X 3, pleasant, answers questions appropriately - Head Head exam: Present: atraumatic, normocephalic - Eye Eye exam: Present: PERRL, conjuntiva pink, sclera anicteric Pupils: Present: PERRL - Neck Neck exam general surgery: Present: supple, trachea midline. Absent: lymphadenopathy - Respiratory Respiratory exam: Present: decreased breath sounds. Absent: accessory muscle use, rales, rhonchi, wheezes - Cardiovascular Cardiovascular exam: Present: RRR, +S1, +S2. Absent: diastolic murmur, gallop, rubs, systolic murmur - GI/Abdominal GI/Abdominal exam: Present: normal bowel sounds, soft, no peritoneal signs. Absent: distended, tenderness - Extremities Exam Extremities exam: Present: warm, radial pulses palpable and symmetrical. Absent : calf tenderness, cyanotic, pedal edema - Neurological Exam Neurological exam: Present: CN II-XII intact, oriented X3, no focal deficits. Absent: pronater drift, facial droop, speech deficit - Skin Skin exam: Present: dry, intact Internal Medicine: Result - Labs CBC & Chem 7: 06/27/17 05:36 06/27/17 05:36 Labs: Short CBC 06/27/17 Range/Units 05:36 WBC 20.4 H (4.3-11.1) K/mcL Hgb 12.5 (11.5-15.4) g/dL Hct 37.7 (35.3-44.9) % Plt Count 228 (140-400) K/mcL Neutrophils # 18.7 H (1.6-8.9) K/mcL BMP 06/27/17 05:36 Sodium 132 L Potassium 4.5 Chloride 103 Carbon Dioxide 20 L BUN 20 Creatinine 0.66 Glucose 348 H Calcium 9.6 Liver Function 06/27/17 Range/Units 05:36 Total Bilirubin 0.3 (0.3-1.0) mg/dL AST 16 (13-39) Units/L ALT 18 (7-52) Units/L Alkaline Phosphatase 108 H (34-104) Units/L Albumin 4.0 (3.5-5.7) g/dL - ABG Interpretation ABG results: PT/INR, D-dimer PT 9.2 Seconds (9.4-12.1) L 06/25/17 10:50 Consult Discharge Plan - Plan Referrals: Patti Mccarty, SOLAR BUSINESS DEVELOPER [Primary Care Provider] -
[2017-06-27] MEDS ORDERED: 0.9 % Sodium Chloride 1,000 ML IVC SCH (14:00)
[2017-06-27 16:23] LABS: Adenovirus Not Detected (Not Detect); Bordetella Pertussis Not Detected (Not Detect); Chlamydophila pneumoniae Not Detected (Not Detect); Coronavirus 229E Not Detected (Not Detect); Coronavirus HKU1 Not Detected (Not Detect); Coronavirus NL63 Not Detected (Not Detect); Coronavirus OC43 Not Detected (Not Detect); Human Metapneumovirus Not Detected (Not Detect); Human Rhinovirus/Enterovirus Not Detected (Not Detect); Influenza A Subtype 2009 H1 Not Detected (Not Detect); Influenza A Untypeable Not Detected (Not Detect); Influenza B Not Detected (Not Detect); Mycoplasma pneumoniae Not Detected (Not Detect); Parainfluenza Virus 1 Not Detected (Not Detect); Parainfluenza Virus 2 Not Detected (Not Detect); Parainfluenza Virus 3 Not Detected (Not Detect); Parainfluenza Virus 4 Not Detected (Not Detect); Respiratory Syncytial Virus Not Detected (Not Detect)
[2017-06-27] MEDS: rOPINIRole 1 MG TABLET PO SCH (20:13)
[2017-06-27] MEDS: tiZANidine 4 MG TABLET PO SCH (20:15)
[2017-06-28] MEDS: Doxycycline 100 MG in 0.9 % Sodium Chloride Mini Bag 100 ML IVPB SCH ×2 (00:12→13:01)
[2017-06-28] MEDS: Levalbuterol Neb 1.25 MG/3 ML IH SCH ×4 (03:31→21:37)
[2017-06-28 04:54] LABS: Hematocrit 36.1 % (35.3-44.9); Hemoglobin 11.5 g/dL (11.5-15.4); Immature Granulocytes % 1.1 % (0-4); Lymphocytes # 1.2 K/mcL (0.6-4.6); Lymphocytes % 9.7 %; Mean Corpuscular HGB Conc 31.9 g/dL (31.6-35.5); Mean Corpuscular Hemoglobin 28.8 pg (28.0-33.3); Mean Corpuscular Volume 90.5 fL (83.0-100.0); Mean Platelet Volume 10.1 fL (9.4-12.4); Monocytes # 0.3 K/mcL (0.0-1.3); Monocytes % 2.5 %; Neutrophils # 11.1 K/mcL (1.6-8.9); Nucleated Red Blood Cells 0.2 /100 WBC (0); Platelet Count 222 K/mcL (140-400); Red Blood Count 3.99 M/mcL (3.82-4.97); Red Cell Distribution Width 13.2 % (11.5-14.5); Segmented Neutrophils % 86.7 %
[2017-06-28] MEDS: methylPREDNISolone 125 MG/2 ML VIAL IVP SCH ×2 (05:10→16:47)
[2017-06-28 05:12] LABS: Alanine Aminotransferase 87 Units/L (7-52); Albumin 3.4 g/dL (3.5-5.7); Albumin/Globulin Ratio 1.4 (1.1-2.2); Alkaline Phosphatase 88 Units/L (34-104); Aspartate Amino Transferase 119 Units/L (13-39); BUN/Creatinine Ratio 39 (6-26); Bilirubin,Total 0.2 mg/dL (0.3-1.0); Blood Urea Nitrogen 26 mg/dL (6-20); Calcium 8.9 mg/dL (8.6-10.3); Carbon Dioxide 24 mEq/L (23-29); Chloride 105 mEq/L (98-107); Globulin 2.4 g/dL (2.4-3.5); Glucose 274 mg/dL (70-105); Osmolality,Calculated 295 (280-300); Potassium 4.4 mEq/L (3.5-5.1); Sodium 135 mEq/L (136-145); Total Protein 5.8 g/dL (6.4-8.9); eGFR For Non-African Americans > 60 (> 60)
[2017-06-28] MEDS: *HR* OxyCODONE/APAP 5/325 TABLET PO PRN ×3 (09:17→23:18)
[2017-06-28] MEDS: Gabapentin 300 MG CAPSULE PO SCH ×3 (09:17→21:06)
[2017-06-28] MEDS: Cholecalciferol (D-3) 1,000 UNIT TABLET PO SCH (09:17)
[2017-06-28] MEDS: Insulin LISPRO 300 UNITS/3 ML VIAL SQ SCH ×4 (09:17→21:08)
[2017-06-28] MEDS: Venlafaxine XR (24 HR) 75 MG CAP.ER.24H PO SCH (09:17)
[2017-06-28] MEDS: Nicotine 21 MG PATCH.TD24 TD SCH (09:18)
[2017-06-28] MEDS: (Alogliptin Benzoate [Alogliptin] 25 MG) PO SCH (09:19)
[2017-06-28] MEDS: (Umeclidinium Bromide [Incruse Ellipta] 1 PUFF) IH SCH (09:19)
[2017-06-28] MEDS: Azithromycin 500 MG in D5% in Water 250 ML IVPB SCH (09:19)
--- NOTE | 2017-06-28 09:55 | Electrocardiograph Report ---
[place] [id number] Test Date: 2017-06-25 Pat Name: Analia Morrison Department: 104 Room: 3A55 Gender: Animal Care Taker: : 1960 Requested By: Alex Vang Order Number: [id number] Reading MD: Saul Gutiérrez DO Measurements Intervals [place] Rate: 86 P: 61 KS: 188 QRS: 50 QRSD: 84 T: 66 QT: 375 QTc: 418 Interpretive Statements SINUS RHYTHM SEPTAL MYOCARDIAL INFARCTION, PROBABLY OLD Electronically Signed On 06-28-2017 9:53:42 EST by Saul Gutiérrez DO
--- NOTE | 2017-06-28 18:04 | Internal Med Progress Note ---
Date of Encounter: 06/28/17 Time of Encounter: 10:00 - Assessment and plan (1) Acute exacerbation of chronic obstructive airways disease Current Visit: Yes Status: Acute Assessment and plan: 1 on oxygen at 2 L nasal cannula maintaining SPO2 greater than 90%. Xopenex as needed We will decrease steroids back to 40 mg every 12 hours Azithromycin IV as needed for bronchitis infection coverage We will add Acapella per respiratory therapy (2) Bronchitis Current Visit: Yes Status: Acute Assessment and plan: Continue with the azithromycin (3) Hypoxia Current Visit: Yes Status: Acute Assessment and plan: 1 improved continue with 2 L nasal cannula as well as bronchodilators Patient will require 6 minute walk test prior to discharge-to qualify for home oxygen (4) Tobacco abuse counseling Current Visit: Yes Status: Acute Assessment and plan: Encouraged patient to stop smoking continue with nicotine patch (5) Weakness Current Visit: Yes Status: Acute Assessment and plan: Patient requiring supplemental oxygen-she may require home oxygen social work consult to assess patient home oxygen needs PT OT for strengthening (6) Diabetes Current Visit: Yes Status: Chronic Assessment and plan: Presently has some elevated blood sugars most likely secondary to steroid use Hold oral medications -patient is on steroids we will place on site scale insulin Accu-Cheks before meals at bedtime Qualifiers: Diabetes mellitus type: type 2 Diabetes mellitus complication status: with unspecified complications 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 use Qualified Code(s): E11.8 - Type 2 diabetes mellitus with unspecified complications (7) HLD (hyperlipidemia) Current Visit: Yes Status: Chronic Assessment and plan: History of chronic hyperlipidemia continue with statin Qualifiers: Hyperlipidemia type: pure hypercholesterolemia Qualified Code(s): E78.00 - Pure hypercholesterolemia, unspecified; E78.0 - Pure hypercholesterolemia (8) DVT prophylaxis Current Visit: Yes Status: Acute Assessment and plan: Bilateral SCDs history of bleeding with BMs we will continue to monitor for signs and symptoms of bleeding (9) Leukocytosis Current Visit: Yes Status: Acute Assessment and plan: This has improved we will continue to monitor Qualifiers: Leukocytosis type: unspecified Qualified Code(s): D72.829 - Elevated white blood cell count, unspecified - Subjective Interval history: Patient examined at bedside. No new complaints continues to complain of neck and back tightness. Denies any cough or shortness of breath continue with oxygen 2 L Does not appear to be in any respiratory distress - Constitutional Vitals: Temp Pulse Resp BP Pulse Ox 97.8 F 86 20 144/69 94 06/28/17 15:16 06/28/17 15:16 06/28/17 17:25 06/28/17 15:16 06/28/17 17:25 General appearance: Present: cooperative, mild distress (Respiratory), A&O X 3, pleasant, answers questions appropriately - Head Head exam: Present: atraumatic, normocephalic - Eye Eye exam: Present: PERRL, conjuntiva pink, sclera anicteric Pupils: Present: PERRL - Neck Neck exam general surgery: Present: supple, trachea midline. Absent: lymphadenopathy - Respiratory Respiratory exam: Present: decreased breath sounds, CTAB. Absent: accessory muscle use, rales, rhonchi, wheezes - Cardiovascular Cardiovascular exam: Present: RRR, +S1, +S2. Absent: diastolic murmur, gallop, rubs, systolic murmur - GI/Abdominal GI/Abdominal exam: Present: normal bowel sounds, soft, no peritoneal signs. Absent: distended, tenderness - Extremities Exam Extremities exam: Present: warm, radial pulses palpable and symmetrical. Absent : calf tenderness, cyanotic, pedal edema - Neurological Exam Neurological exam: Present: CN II-XII intact, oriented X3, no focal deficits. Absent: pronater drift, facial droop, speech deficit - Skin Skin exam: Present: dry, intact Internal Medicine: Result - Labs CBC & Chem 7: 06/28/17 04:02 06/28/17 04:02 Labs: Short CBC 06/28/17 Range/Units 04:02 WBC 12.8 H (4.3-11.1) K/mcL Hgb 11.5 (11.5-15.4) g/dL Hct 36.1 (35.3-44.9) % Plt Count 222 (140-400) K/mcL Neutrophils # 11.1 H (1.6-8.9) K/mcL BMP 06/28/17 04:02 Sodium 135 L Potassium 4.4 Chloride 105 Carbon Dioxide 24 BUN 26 H Creatinine 0.67 Glucose 274 H Calcium 8.9 Liver Function 06/28/17 Range/Units 04:02 Total Bilirubin 0.2 L (0.3-1.0) mg/dL AST 119 H (13-39) Units/L ALT 87 H (7-52) Units/L Alkaline Phosphatase 88 (34-104) Units/L Albumin 3.4 L (3.5-5.7) g/dL - ABG Interpretation ABG results: PT/INR, D-dimer PT 9.2 Seconds (9.4-12.1) L 06/25/17 10:50 Consult Discharge Plan - Plan Referrals: Patti Mccarty, STRING STUDIES DIRECTOR [Primary Care Provider] - Prescriptions: Ipratropium/Albuterol Neb [Duoneb] 3 ml IH Q6HR PRN #60 [email or web address] PRN Reason: Wheezing
[2017-06-28] MEDS: tiZANidine 4 MG TABLET PO SCH (21:06)
[2017-06-28] MEDS: rOPINIRole 1 MG TABLET PO SCH (21:06)
[2017-06-29] MEDS: Doxycycline 100 MG in 0.9 % Sodium Chloride Mini Bag 100 ML IVPB SCH ×2 (00:55→12:25)
[2017-06-29] MEDS: Levalbuterol Neb 1.25 MG/3 ML IH SCH ×3 (04:09→15:27)
[2017-06-29 04:36] LABS: Basophils % 0.2 %; Hematocrit 35.6 % (35.3-44.9); Hemoglobin 11.7 g/dL (11.5-15.4); Immature Granulocytes % 2.4 % (0-4); Lymphocytes # 1.5 K/mcL (0.6-4.6); Mean Corpuscular HGB Conc 32.9 g/dL (31.6-35.5); Mean Corpuscular Hemoglobin 29.3 pg (28.0-33.3); Mean Platelet Volume 9.8 fL (9.4-12.4); Monocytes # 0.5 K/mcL (0.0-1.3); Monocytes % 4.5 %; Neutrophils # 9.8 K/mcL (1.6-8.9); Nucleated Red Blood Cells 0.2 /100 WBC (0); Platelet Count 210 K/mcL (140-400); Red Cell Distribution Width 13.1 % (11.5-14.5); Segmented Neutrophils % 80.9 %
[2017-06-29 04:56] LABS: Alanine Aminotransferase 52 Units/L (7-52); Albumin 3.4 g/dL (3.5-5.7); Albumin/Globulin Ratio 1.6 (1.1-2.2); Alkaline Phosphatase 91 Units/L (34-104); Aspartate Amino Transferase 15 Units/L (13-39); BUN/Creatinine Ratio 40 (6-26); Bilirubin,Total 0.2 mg/dL (0.3-1.0); Blood Urea Nitrogen 27 mg/dL (6-20); Calcium 8.9 mg/dL (8.6-10.3); Carbon Dioxide 24 mEq/L (23-29); Chloride 102 mEq/L (98-107); Globulin 2.1 g/dL (2.4-3.5); Glucose 331 mg/dL (70-105); Osmolality,Calculated 296 (280-300); Potassium 4.4 mEq/L (3.5-5.1); Sodium 134 mEq/L (136-145); Total Protein 5.5 g/dL (6.4-8.9); eGFR For Non-African Americans > 60 (> 60)
[2017-06-29] MEDS: *HR* OxyCODONE/APAP 5/325 TABLET PO PRN (05:38)
[2017-06-29] MEDS: methylPREDNISolone 125 MG/2 ML VIAL IVP SCH (05:38)
[2017-06-29] MEDS: Azithromycin 500 MG in D5% in Water 250 ML IVPB SCH (09:55)
[2017-06-29] MEDS: Venlafaxine XR (24 HR) 75 MG CAP.ER.24H PO SCH (09:56)
[2017-06-29] MEDS: Cholecalciferol (D-3) 1,000 UNIT TABLET PO SCH (09:56)
[2017-06-29] MEDS: Gabapentin 300 MG CAPSULE PO SCH (09:56)
[2017-06-29] MEDS: Nicotine 21 MG PATCH.TD24 TD SCH (09:56)
[2017-06-29] MEDS: Insulin LISPRO 300 UNITS/3 ML VIAL SQ SCH ×2 (09:58→12:25)
[2017-06-29] MEDS: (Umeclidinium Bromide [Incruse Ellipta] 1 PUFF) IH SCH (10:05)
[2017-06-29] MEDS: (Alogliptin Benzoate [Alogliptin] 25 MG) PO SCH (10:05)
--- NOTE | 2017-06-29 14:54 | Discharge Summary ---
Date of Encounter: 06/29/17 Time of Encounter: 14:47 - Discharge Diagnosis (1) Acute exacerbation of chronic obstructive airways disease Priority: Primary Status: Acute Comments: Patient qualified for home oxygen-she will be sent home on 2 L nasal cannula She will also be sent home on Duo nebs Placed on steroid taper She will follow-up with PCP (2) Bronchitis Priority: Primary Status: Acute Comments: 1 continue with bronchodilators-she did complete azithromycin while in the hospital (3) Hypoxia Priority: Primary Status: Acute Comments: Patient will require home oxygen-qualified per 6 minute walk test Patient's sats were in the upper 80s on room air (4) Tobacco abuse counseling Priority: Secondary Status: Acute Comments: Encouraged patient to stop smoking (5) Weakness Priority: Secondary Status: Acute Comments: She has improved walking in the room (6) Diabetes Priority: Secondary Status: Chronic Comments: Blood sugars have been elevated which are most likely to steroid use. 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 Morrison is a 57 year old female past medical history of COPD she is not on any oxygen at home diabetes hyperlipidemia presented to the ER after experiencing shortness of breath for 3 days. She also had cough and wheezing. Chest x-ray no acute process CTA with no evidence of pulmonary emboli Resp panel was negative. patient was given IV steroids as well as bronchodilators oxygen and azithromycin. She continued to be dependent on oxygen and saturations would drop to upper 80s on room air. She underwent a 6 min walk test which quantified her for home oxygen use. She did have elevated blood glucose as well as elevated white count which did improve and were most likely related to steroid use Her respiratory status improved no wheezes auscultated. I reviewed medications with patient and advised patient to follow-up with PCP as well as principal systems architect since these providers know her past and can adjust medications accordingly. Patient verbalized understanding she is hemodynamically stable since time is ready for discharge Discharge discussed with: patient, family Time spent discussing smoking cessation with patient: 3 to 10 minutes - Time Spent with Patient Total time spent providing and/or coordinating discharge services: - Discharge Medications Prescriptions: Ipratropium/Albuterol Neb [Duoneb] 3 ml IH Q6HR PRN #60 [email or web address] PRN Reason: Wheezing predniSONE [PredniSONE] 10 mg PO DAILY #30 tablet Home Medications: Albuterol Sulfate [Ventolin Hfa] 2 puff IH Q4H PRN 06/12/17 [History] Alogliptin Benzoate [Alogliptin] 25 mg PO DAILY 06/12/17 [History] Atorvastatin [Lipitor] 40 mg PO HS 06/12/17 [History] Cholecalciferol (D-3) [Vitamin D] 1,000 mg PO DAILY 06/12/17 [History] Gabapentin [Neurontin] 300 mg PO TID 06/12/17 [History] Metformin HCl [Glucophage] 1,000 mg PO BID 06/12/17 [History] Omeprazole [PriLOSEC] 20 mg PO DAILY 06/12/17 [History] OxyCODONE/APAP 5/325 [Percocet 5/325 MG] 1 each PO Q6HR PRN 7 Days #14 tablet [Rx] Ropinirole HCl [Requip] 0.5 mg PO HS 06/12/17 [History] Tizanidine HCl 4 mg PO HS 06/12/17 [History] Umeclidinium [place] [Incruse Ellipta] 1 puff IH DAILY 06/12/17 [History] Venlafaxine HCl [Venlafaxine HCl ER] 75 mg PO DAILY 06/12/17 [History] Ipratropium/Albuterol Neb [Duoneb] 3 ml IH Q6HR PRN #60 [email or web address] 06/28/17 [Rx] predniSONE [PredniSONE] 10 mg PO DAILY #30 tablet 06/29/17 [Rx] Allergies/Adverse Reactions: 3 Allergy/AdvReac Type Severity Reaction Status Date / Time Penicillins Allergy Swelling Verified 06/12/17 10:35 of Lip/Tongue/Throat acetaminophen [From Lortab] AdvReac Nausea Verified 06/12/17 10:35 hydrocodone [From Lortab] AdvReac Nausea Verified 06/12/17 10:35 levofloxacin [From Levaquin] AdvReac See Verified 06/12/17 10:35 Comments Date of admission: 06/25/17 18:16 Primary care physician: Patti Mccarty CNP Consults: 06/26/17 12:13 Consult to Respiratory Therapy [CONS] Routine Reason for Consult: Acapella Time Notified: 12:14 Call Completed: No 06/27/17 16:03 Consult to [place] [CONS] Routine Reason for SW Consult: Pt requesting resources about how to apply for disability Discharging clinician: Josette Pérez Anticipated date of discharge: 06/29/17 - Constitutional Vitals: Temp Pulse Resp BP Pulse Ox 98.2 F 77 18 145/68 95 06/29/17 11:14 06/29/17 11:14 06/29/17 11:14 06/29/17 11:14 06/29/17 11:14 General appearance: Present: cooperative, mild distress (Respiratory), A&O X 3, pleasant, answers questions appropriately - Head Head exam: Present: atraumatic, normocephalic - Eye Eye exam: Present: PERRL, conjuntiva pink, sclera anicteric Pupils: Present: PERRL - Neck Neck exam general surgery: Present: supple, trachea midline. Absent: lymphadenopathy - Respiratory Respiratory exam: Present: CTAB. Absent: accessory muscle use, rales, rhonchi, wheezes - Cardiovascular Cardiovascular exam: Present: RRR, +S1, +S2. Absent: diastolic murmur, gallop, rubs, systolic murmur - GI/Abdominal GI/Abdominal exam: Present: normal bowel sounds, soft, no peritoneal signs. Absent: distended, tenderness - Extremities Exam Extremities exam: Present: warm, radial pulses palpable and symmetrical. Absent : calf tenderness, cyanotic, pedal edema - Neurological Exam Neurological exam: Present: CN II-XII intact, oriented X3, no focal deficits. Absent: pronater drift, facial droop, speech deficit - Skin Skin exam: Present: dry, intact - Patient Status Disposition: Home, Self-Care Condition: Fair Functional capacity at discharge: independent ambulation Overall status at discharge: patient is progressing back to baseline - Discharge Instructions Instructions: Diabetes Mellitus Type 2 in Adults (DC), Chronic Obstructive Pulmonary Disease (DC) Follow Up With: Patti Mccarty CNP [Primary Care Provider] - Zeny Hansen MD [Partnered Physician] - - Diet and Activity Activity: wear oxygen at all times Diet: advance to your usual diet
[2017-06-29 15:09] VITALS: BP 184/98
== END 2017-06-29 16:00 | disposition home or self-care (01) | DRG 140 ==
LOC: EMEROO 10:16 → 3BNU 10:16 → 3ANU 06-26 23:39
PROVIDERS: ADMIT Internal Medicine; ATTEND Registered Nurse

== ENCOUNTER 2019-04-08 06:36 | Inpatient (IN) ==
[2019-04-08] MEDS ORDERED: Ipratropium/Albuterol Neb 3 ML IH ONE (06:44)
[2019-04-08] MEDS ORDERED: methylPREDNISolone 125 MG/2 ML VIAL IVP ONE (06:44)
[2019-04-08] MEDS ORDERED: 0.9 % Sodium Chloride 1,000 ML IVC ONE (06:49)
[2019-04-08] MEDS ORDERED: levoFLOXacin 500 MG/100 ML 500 MG/100 ML BAG IVPB ONE (06:52)
[2019-04-08 07:13] LABS: Basophils % 0.3 %; Eosinophils % 0.4 %; Hematocrit 41.3 % (35.3-44.9); Hemoglobin 14.3 g/dL (11.5-15.4); Immature Granulocytes % 0.4 % (0-4); Lymphocytes # 1.8 K/mcL (0.6-4.6); Mean Corpuscular HGB Conc 34.6 g/dL (31.6-35.5); Mean Corpuscular Hemoglobin 29.9 pg (28.0-33.3); Mean Corpuscular Volume 86.4 fL (83.0-100.0); Mean Platelet Volume 9.9 fL (9.4-12.4); Monocytes # 0.5 K/mcL (0.0-1.3); Monocytes % 4.8 %; Neutrophils # 7.5 K/mcL (1.6-8.9); Platelet Count 265 K/mcL (140-400); Red Blood Count 4.78 M/mcL (3.82-4.97); Red Cell Distribution Width 12.8 % (11.5-14.5); Segmented Neutrophils % 76.1 %; White Blood Count 9.9 K/mcL (4.3-11.1)
[2019-04-08 07:25] LABS: INR 0.9; Prothrombin Time 9.9 Seconds (9.4-12.1)
[2019-04-08 07:27] LABS: Activated Partial Thrombo Time 29.9 Seconds (26.0-36.0)
[2019-04-08 07:30] LABS: ABG Base Excess 5 mEq/L (-2 to 3); ABG HCO3 30 mEq/L (21-27); ABG Oxygen Saturation 95 % (95-98); ABG PCO2 44 mmHg (35-45); ABG PH 7.44 pH Units (7.32-7.45); ABG PO2 71 mmHg (85-104); ABG TCO2 31 mEq/L (20-26)
[2019-04-08 07:36] LABS: BUN/Creatinine Ratio 12 (6-26); Blood Urea Nitrogen 9 mg/dL (6-20); Calcium 8.6 mg/dL (8.6-10.3); Carbon Dioxide 27 mEq/L (23-29); Chloride 91 mEq/L (98-107); Glucose 449 mg/dL (70-105); Magnesium 1.7 mg/dL (1.6-2.6); Osmolality,Calculated 288 (280-300); Phosphorous 3.5 mg/dL (2.7-4.5); Potassium 3.9 mEq/L (3.5-5.1); Sodium 130 mEq/L (136-145); eGFR For African Americans > 60 (> 60); eGFR For Non-African Americans > 60 (> 60)
[2019-04-08 07:40] LABS: Troponin I 0.05 ng/mL (< 0.04)
[2019-04-08] MEDS ORDERED: Furosemide 20 MG/2 ML VIAL IVP ONE (07:48)
[2019-04-08 08:32] LABS: Bilirubin,Urine Negative (Negative); Blood,Urine Negative (Negative); Clarity,Urine Clear (Clear); Color,Urine Yellow (Yellow); Glucose,Urine (UA) >=1000 mg/dL (Normal); Ketones,Urine 15 mg/dL (Negative); Leukocyte Esterase,Urine Negative (Negative); Nitrite,Urine Negative (Negative); Protein,Urine 100 mg/dL (Neg-Trace); Specific Gravity,Urine > 1.030 (1.010-1.025); Urobilinogen,Urine Normal (Normal)
[2019-04-08 08:34] LABS: Bacteria,Urine None Seen per hpf (None-Few); Hyaline Casts,Urine None Seen per lpf (None-Few); RBC,Urine 0-3 per hpf (0-3); Squamous Epithelial Cell,Urine Many per lpf (None-Few); WBC,Urine 0-3 per hpf (0-3)
[2019-04-08] MEDS ORDERED: Naloxone 0.4 MG/ML INJ IVP PRN (09:09)
[2019-04-08] MEDS ORDERED: Dextrose Gel 15 GM/37.5 ML TUBE PO PRN ×2 (10:11)
[2019-04-08] MEDS ORDERED: D5% in Water 1,000 ML IVC PRN (10:11)
[2019-04-08] MEDS ORDERED: *HR* Dextrose 50 % in Water (Syg) 50 ML SYRINGE IVP PRN (10:11)
[2019-04-08 11:05] LABS: Estimated Average Glucose 398 mg/dl
[2019-04-08] MEDS ORDERED: Insulin LISPRO 300 UNITS/3 ML VIAL SQ ONE (12:07)
[2019-04-08] MEDS: Insulin LISPRO 300 UNITS/3 ML VIAL SQ SCH ×3 (12:19→20:53)
[2019-04-08] MEDS ORDERED: Haloperidol Lactate 5 MG/ML VIAL IVP ONE (13:31)
[2019-04-08] MEDS ORDERED: Ipratropium/Albuterol Neb 3 ML IH PRN (14:14)
[2019-04-08] MEDS: *HR* Heparin 5,000 UNIT/ML VIAL SQ SCH ×2 (15:00→22:33)
[2019-04-08] MEDS ORDERED: *HR* Metoprolol 5 MG/5 ML VIAL IVP ONE (15:08)
[2019-04-08] MEDS ORDERED: Albuterol 2.5 MG/3 ML NEBULIZER IH SCH (18:00)
[2019-04-08] MEDS ORDERED: tiZANidine 4 MG TABLET PO ONE (18:28)
[2019-04-08] MEDS: rOPINIRole 0.25 MG TABLET PO SCH (20:27)
[2019-04-09] MEDS: *HR* Heparin 5,000 UNIT/ML VIAL SQ SCH ×3 (05:58→20:49)
[2019-04-09] MEDS ORDERED: Regadenoson 0.4 MG/5 ML SYRINGE IVP ONE (06:41)
[2019-04-09] MEDS: Insulin LISPRO 300 UNITS/3 ML VIAL SQ SCH ×4 (08:23→20:50)
[2019-04-09] MEDS: Cholecalciferol (D-3) 1,000 UNIT (25MCG) TABLET PO SCH (08:25)
[2019-04-09] MEDS: Furosemide 20 MG/2 ML VIAL IVP SCH (08:25)
[2019-04-09] MEDS: Venlafaxine XR (24 HR) 75 MG CAP.ER.24H PO SCH (08:25)
[2019-04-09 08:55] LABS: BUN/Creatinine Ratio 23 (6-26); Blood Urea Nitrogen 26 mg/dL (6-20); Calcium 9.7 mg/dL (8.6-10.3); Carbon Dioxide 27 mEq/L (23-29); Chloride 93 mEq/L (98-107); Glucose 380 mg/dL (70-105); Osmolality,Calculated 290 (280-300); Potassium 4.1 mEq/L (3.5-5.1); Sodium 130 mEq/L (136-145); eGFR For African Americans > 60 (> 60); eGFR For Non-African Americans 50 (> 60)
[2019-04-09] MEDS ORDERED: NON-FORMULARY MEDICATION 1 EACH EACH (Salmeterol Xinafoate [Serevent Diskus] 1 PUFF) IH SCH (09:00)
[2019-04-09] MEDS ORDERED: Insulin DETEMIR 100 UNIT/ML X5UNITS SQ ONE (09:24)
[2019-04-09] MEDS ORDERED: Tiotropium 18 MCG inhalation IH SCH (10:00)
[2019-04-09] MEDS: Metoprolol XL (24 HR) Succ 25 MG TAB.ER.24H PO SCH (11:47)
[2019-04-09] MEDS ORDERED: tiZANidine 4 MG TABLET PO ONE (12:55)
[2019-04-09] MEDS ORDERED: hydrALAZINE 10 MG TABLET PO PRN (14:27)
[2019-04-09] MEDS: rOPINIRole 0.25 MG TABLET PO SCH (20:48)
[2019-04-09] MEDS: Insulin DETEMIR 100 UNIT/ML X5UNITS SQ SCH (20:49)
[2019-04-09] MEDS: Gabapentin 300 MG CAPSULE PO SCH (20:49)
[2019-04-09] MEDS ORDERED: tiZANidine 4 MG TABLET PO SCH (21:00)
[2019-04-10 05:29] LABS: INR 0.9; Prothrombin Time 9.8 Seconds (9.4-12.1)
[2019-04-10 05:39] LABS: BUN/Creatinine Ratio 28 (6-26); Blood Urea Nitrogen 29 mg/dL (6-20); Carbon Dioxide 30 mEq/L (23-29); Chloride 96 mEq/L (98-107); Glucose 87 mg/dL (70-105); Osmolality,Calculated 283 (280-300); Potassium 3.3 mEq/L (3.5-5.1); Sodium 134 mEq/L (136-145); eGFR For African Americans > 60 (> 60); eGFR For Non-African Americans 56 (> 60)
[2019-04-10] MEDS: *HR* Heparin 5,000 UNIT/ML VIAL SQ SCH ×2 (05:40→14:02)
[2019-04-10] MEDS: Insulin LISPRO 300 UNITS/3 ML VIAL SQ SCH ×4 (07:20→22:59)
[2019-04-10] MEDS: Furosemide 20 MG/2 ML VIAL IVP SCH (07:50)
[2019-04-10] MEDS: Venlafaxine XR (24 HR) 75 MG CAP.ER.24H PO SCH (07:50)
[2019-04-10] MEDS: Gabapentin 300 MG CAPSULE PO SCH ×3 (07:50→22:57)
[2019-04-10] MEDS: Metoprolol XL (24 HR) Succ 25 MG TAB.ER.24H PO SCH (07:50)
[2019-04-10] MEDS: Cholecalciferol (D-3) 1,000 UNIT (25MCG) TABLET PO SCH (07:50)
[2019-04-10] MEDS ORDERED: tiZANidine 4 MG TABLET PO PRN (14:28)
[2019-04-10] MEDS ORDERED: 0.9 % Sodium Chloride 2,000 ML ONE (15:03)
[2019-04-10] MEDS ORDERED: ISOVUE-370 200 ML INFUS..BTL ONE (15:03)
[2019-04-10] MEDS ORDERED: Heparin 1,000 UNITS/500 mL 500 ML ONE (15:03)
[2019-04-10] MEDS ORDERED: Nitroglycerin 1,000 MCG/10 ML VIAL IV ONE (15:03)
[2019-04-10] MEDS ORDERED: *HR* Heparin 10,000 UNIT/10 ML VIAL ONE (15:03)
[2019-04-10] MEDS ORDERED: 0.9 % Sodium Chloride 1,000 ML ONE (15:12)
[2019-04-10] MEDS ORDERED: *HR* Midazolam HCl 2 MG/2 ML VIAL ONE (17:09)
[2019-04-10] MEDS ORDERED: *HR* FentaNYL (PF) 100 MCG/2 ML VIAL ONE (17:09)
[2019-04-10] MEDS: rOPINIRole 0.25 MG TABLET PO SCH (22:57)
[2019-04-10] MEDS: Insulin DETEMIR 100 UNIT/ML X5UNITS SQ SCH (23:00)
[2019-04-11] MEDS: Insulin LISPRO 300 UNITS/3 ML VIAL SQ SCH ×2 (08:58→09:07)
[2019-04-11] MEDS: Metoprolol XL (24 HR) Succ 25 MG TAB.ER.24H PO SCH (09:06)
[2019-04-11] MEDS: Gabapentin 300 MG CAPSULE PO SCH (09:06)
[2019-04-11] MEDS: Cholecalciferol (D-3) 1,000 UNIT (25MCG) TABLET PO SCH (09:06)
[2019-04-11] MEDS: Venlafaxine XR (24 HR) 75 MG CAP.ER.24H PO SCH (09:06)
[2019-04-11] MEDS: Furosemide 20 MG/2 ML VIAL IVP SCH (09:07)
[2019-04-11] MEDS ORDERED: Aspirin 81 MG TAB.CHEW PO SCH (09:20)
[2019-04-11 10:57] VITALS: BP 117/73
[2019-04-12] MEDS ORDERED: Potassium Chloride Elixir 20 MEQ/15 ML UDC PO SCH (09:00)
[2019-04-12] MEDS ORDERED: Furosemide 20 MG TABLET PO SCH (09:00)
== END 2019-04-11 11:46 | disposition home or self-care (01) | DRG 192 ==
LOC: EMEROOARM 06:36 → CDU 06:36 → 2ANU 18:21 → SUATTDRO 04-10 13:43
PROVIDERS: ADMIT Internal Medicine; ATTEND Internal Medicine

== ENCOUNTER 2019-05-25 10:49 | Inpatient (IN) ==
[2019-05-25] MEDS ORDERED: methylPREDNISolone 125 MG/2 ML VIAL IVP ONE (11:00)
[2019-05-25] MEDS ORDERED: Ipratropium/Albuterol Neb 3 ML IH ONE (11:03)
[2019-05-25 11:27] LABS: Basophils % 0.2 %; Hematocrit 44.9 % (35.3-44.9); Hemoglobin 14.7 g/dL (11.5-15.4); Immature Granulocytes % 0.4 % (0-4); Lymphocytes # 0.5 K/mcL (0.6-4.6); Lymphocytes % 3.7 %; Mean Corpuscular HGB Conc 32.7 g/dL (31.6-35.5); Mean Corpuscular Hemoglobin 28.9 pg (28.0-33.3); Mean Corpuscular Volume 88.2 fL (83.0-100.0); Mean Platelet Volume 9.7 fL (9.4-12.4); Monocytes # 0.6 K/mcL (0.0-1.3); Monocytes % 4.5 %; Neutrophils # 12.7 K/mcL (1.6-8.9); Platelet Count 230 K/mcL (140-400); Red Blood Count 5.09 M/mcL (3.82-4.97); Red Cell Distribution Width 12.7 % (11.5-14.5); Segmented Neutrophils % 91.2 %; White Blood Count 13.9 K/mcL (4.3-11.1)
[2019-05-25 11:34] LABS: Prothrombin Time 11.1 Seconds (9.4-12.1)
[2019-05-25 11:37] LABS: Activated Partial Thrombo Time 28.7 Seconds (26.0-36.0)
[2019-05-25] MEDS ORDERED: Azithromycin 500 MG in D5% in Water 250 ML IVPB ONE (11:41)
[2019-05-25] MEDS ORDERED: cefTRIAXone 2,000 MG in 0.9 % Sodium Chloride Mini Bag 100 ML IVPB ONE (11:41)
[2019-05-25 11:53] LABS: Albumin 3.7 g/dL (3.5-5.7); Albumin/Globulin Ratio 1.2 (1.1-2.2); Bilirubin,Total 0.5 mg/dL (0.3-1.0); Calcium 8.8 mg/dL (8.6-10.3); Globulin 3.2 g/dL (2.4-3.5); Potassium 3.6 mEq/L (3.5-5.1); Total Protein 6.9 g/dL (6.4-8.9); Troponin I 0.33 ng/mL (< 0.04)
[2019-05-25 12:21] LABS: ABG Base Excess 0 mEq/L (-2 to 3); ABG HCO3 25 mEq/L (21-27); ABG Oxygen Saturation 93 % (95-98); ABG PCO2 42 mmHg (35-45); ABG PH 7.38 pH Units (7.32-7.45); ABG PO2 68 mmHg (85-104); ABG TCO2 26 mEq/L (20-26); Blood Gas Modality AF; Blood Gas VT 12 cc
[2019-05-25] MEDS ORDERED: Insulin LISPRO 300 UNITS/3 ML VIAL SQ ONE (13:19)
[2019-05-25] MEDS ORDERED: Naloxone 0.4 MG/ML INJ IVP PRN (14:09)
[2019-05-25] MEDS ORDERED: Dextrose Gel 15 GM/37.5 ML TUBE PO PRN ×2 (14:13)
[2019-05-25] MEDS ORDERED: D5% in Water 1,000 ML IVC PRN (14:13)
[2019-05-25] MEDS ORDERED: *HR* Dextrose 50 % in Water (Syg) 50 ML SYRINGE IVP PRN (14:13)
[2019-05-25] MEDS ORDERED: Albuterol 2.5 MG/3 ML NEBULIZER IH PRN (14:33)
[2019-05-25] MEDS ORDERED: Insulin Human Regular 10 UNIT in 0.9 % Sodium Chloride 10 ML IV ONE (14:55)
[2019-05-25] MEDS: Ipratropium/Albuterol Neb 3 ML IH SCH ×3 (15:28→23:54)
[2019-05-25] MEDS: Insulin DETEMIR 100 UNIT/ML X5UNITS SQ SCH ×2 (15:50→20:51)
[2019-05-25] MEDS ORDERED: methylPREDNISolone 125 MG/2 ML VIAL IVP SCH (16:00)
[2019-05-25] MEDS ORDERED: *HR* Heparin 5,000 UNIT/ML VIAL IVP PRN ×2 (16:03)
[2019-05-25] MEDS ORDERED: *HR* Heparin 5,000 UNIT/ML VIAL IVP ONE (16:03)
[2019-05-25] MEDS ORDERED: hydrOXYzine pamoate 25 MG CAPSULE PO PRN (16:06)
[2019-05-25] MEDS ORDERED: Insulin LISPRO 300 UNITS/3 ML VIAL SQ SCH (16:30)
[2019-05-25] MEDS: Heparin 25,000 UNIT/250 ML D5W 25,000 UNIT/250 ML IV.SOLN IVC SCH (17:09)
[2019-05-25] MEDS ORDERED: 0.9 % Sodium Chloride 1,000 ML IVC SCH (17:15)
[2019-05-25] MEDS: Insulin LISPRO 300 UNITS/3 ML VIAL SQ SCH ×2 (18:14→20:53)
[2019-05-25] MEDS: Doxycycline 100 MG in 0.9 % Sodium Chloride Mini Bag 100 ML IVPB SCH (18:19)
[2019-05-25] MEDS: Gabapentin 300 MG CAPSULE PO SCH (20:50)
[2019-05-25] MEDS: rOPINIRole 0.25 MG TABLET PO SCH (20:50)
[2019-05-25] MEDS: tiZANidine 4 MG TABLET PO SCH (20:51)
[2019-05-25] MEDS ORDERED: TIZANIDINE HCL 4 MG PO SCH (21:00)
[2019-05-26] MEDS: Ipratropium/Albuterol Neb 3 ML IH SCH ×6 (03:32→23:46)
[2019-05-26 05:25] LABS: Basophils % 0.1 %; Hematocrit 36.9 % (35.3-44.9); Lymphocytes # 0.6 K/mcL (0.6-4.6); Lymphocytes % 3.8 %; Mean Corpuscular Hemoglobin 29.2 pg (28.0-33.3); Mean Corpuscular Volume 83.5 fL (83.0-100.0); Mean Platelet Volume 10.2 fL (9.4-12.4); Monocytes # 0.3 K/mcL (0.0-1.3); Monocytes % 1.8 %; Neutrophils # 14.3 K/mcL (1.6-8.9); Platelet Count 198 K/mcL (140-400); Red Blood Count 4.42 M/mcL (3.82-4.97); Red Cell Distribution Width 12.5 % (11.5-14.5); Segmented Neutrophils % 93.3 %; White Blood Count 15.4 K/mcL (4.3-11.1)
[2019-05-26 05:27] LABS: Hemoglobin 12.9 g/dL (11.5-15.4)
[2019-05-26 05:43] LABS: BUN/Creatinine Ratio 22 (6-26); Blood Urea Nitrogen 22 mg/dL (6-20); Calcium 8.8 mg/dL (8.6-10.3); Carbon Dioxide 27 mEq/L (23-29); Chloride 96 mEq/L (98-107); Glucose 320 mg/dL (70-105); Osmolality,Calculated 290 (280-300); Potassium 3.1 mEq/L (3.5-5.1); Sodium 132 mEq/L (136-145); eGFR For African Americans > 60 (> 60); eGFR For Non-African Americans 56 (> 60)
[2019-05-26] MEDS: Doxycycline 100 MG in 0.9 % Sodium Chloride Mini Bag 100 ML IVPB SCH ×2 (06:28→17:21)
[2019-05-26] MEDS ORDERED: Potassium Chloride 40 MEQ, Lidocaine 1% 2 ML in 0.9 % Sodium Chloride 500 ML IVPB ONE (07:25)
[2019-05-26] MEDS: PARoxetine 20 MG TABLET PO SCH (08:23)
[2019-05-26] MEDS: predniSONE 20 MG TABLET PO SCH (08:23)
[2019-05-26] MEDS: tiZANidine 4 MG TABLET PO SCH ×3 (08:23→20:10)
[2019-05-26] MEDS: Potassium Chloride Elixir 20 MEQ/15 ML UDC PO SCH (08:23)
[2019-05-26] MEDS: Metoprolol XL (24 HR) Succ 25 MG TAB.ER.24H PO SCH (08:23)
[2019-05-26] MEDS: Aspirin 81 MG TAB.CHEW PO SCH (08:24)
[2019-05-26] MEDS: Venlafaxine XR (24 HR) 75 MG CAP.ER.24H PO SCH (08:24)
[2019-05-26] MEDS: Cholecalciferol (D-3) 1,000 UNIT (25MCG) TABLET PO SCH (08:24)
[2019-05-26] MEDS: Gabapentin 300 MG CAPSULE PO SCH ×3 (08:24→20:11)
[2019-05-26] MEDS: cefTRIAXone 2,000 MG in Water for inj. (sterile) 20 ML IVP SCH (08:24)
[2019-05-26] MEDS: Insulin DETEMIR 100 UNIT/ML X5UNITS SQ SCH ×2 (08:31→20:24)
[2019-05-26] MEDS: Insulin LISPRO 300 UNITS/3 ML VIAL SQ SCH ×4 (08:40→20:22)
[2019-05-26] MEDS ORDERED: Insulin DETEMIR 100 UNIT/ML X5UNITS SQ ONE (08:49)
[2019-05-26] MEDS ORDERED: Furosemide 20 MG TABLET PO SCH (09:00)
[2019-05-26] MEDS ORDERED: Furosemide 40 MG/4 ML VIAL IVP SCH (10:45)
[2019-05-26] MEDS: Furosemide 20 MG/2 ML VIAL IVP SCH (11:07)
[2019-05-26] MEDS ORDERED: Azithromycin 500 MG in 0.9 % Sodium Chloride 250 ML IVPB SCH (13:00)
[2019-05-26] MEDS ORDERED: Isovue-370 500 ML BOTTLE IVP ONE (17:02)
[2019-05-26] MEDS: rOPINIRole 0.25 MG TABLET PO SCH (20:11)
[2019-05-26] MEDS: Heparin 25,000 UNIT/250 ML D5W 25,000 UNIT/250 ML IV.SOLN IVC SCH (20:12)
[2019-05-27 01:15] LABS: Basophils % 0.1 %; Hematocrit 33.4 % (35.3-44.9); Immature Granulocytes % 0.8 % (0-4); Lymphocytes # 1.3 K/mcL (0.6-4.6); Lymphocytes % 7.5 %; Mean Corpuscular HGB Conc 33.8 g/dL (31.6-35.5); Mean Corpuscular Hemoglobin 28.9 pg (28.0-33.3); Mean Corpuscular Volume 85.4 fL (83.0-100.0); Mean Platelet Volume 10.1 fL (9.4-12.4); Monocytes # 0.4 K/mcL (0.0-1.3); Monocytes % 2.3 %; Neutrophils # 15.8 K/mcL (1.6-8.9); Platelet Count 209 K/mcL (140-400); Red Blood Count 3.91 M/mcL (3.82-4.97); Red Cell Distribution Width 13.2 % (11.5-14.5); Segmented Neutrophils % 89.3 %; White Blood Count 17.7 K/mcL (4.3-11.1)
[2019-05-27 01:16] LABS: Hemoglobin 11.3 g/dL (11.5-15.4)
[2019-05-27 01:35] LABS: Calcium 8.5 mg/dL (8.6-10.3); Potassium 3.8 mEq/L (3.5-5.1)
[2019-05-27 01:48] LABS: Troponin I 0.65 ng/mL (< 0.04)
[2019-05-27] MEDS: Furosemide 20 MG/2 ML VIAL IVP SCH ×3 (02:55→19:53)
[2019-05-27] MEDS: Heparin 25,000 UNIT/250 ML D5W 25,000 UNIT/250 ML IV.SOLN IVC SCH (02:56)
[2019-05-27] MEDS ORDERED: Morphine Sulfate 2 MG/ML SYRINGE IVP ONE (03:09)
[2019-05-27] MEDS: Ipratropium/Albuterol Neb 3 ML IH SCH ×6 (03:34→23:11)
[2019-05-27] MEDS: Doxycycline 100 MG in 0.9 % Sodium Chloride Mini Bag 100 ML IVPB SCH (04:52)
[2019-05-27] MEDS: Venlafaxine XR (24 HR) 75 MG CAP.ER.24H PO SCH (08:50)
[2019-05-27] MEDS: tiZANidine 4 MG TABLET PO SCH ×3 (08:51→21:43)
[2019-05-27] MEDS: PARoxetine 20 MG TABLET PO SCH (08:52)
[2019-05-27] MEDS: Gabapentin 300 MG CAPSULE PO SCH ×3 (08:52→21:43)
[2019-05-27] MEDS: predniSONE 20 MG TABLET PO SCH (08:52)
[2019-05-27] MEDS: Aspirin 81 MG TAB.CHEW PO SCH (08:52)
[2019-05-27] MEDS: Cholecalciferol (D-3) 1,000 UNIT (25MCG) TABLET PO SCH (08:52)
[2019-05-27] MEDS: Metoprolol XL (24 HR) Succ 25 MG TAB.ER.24H PO SCH (08:52)
[2019-05-27] MEDS: cefTRIAXone 2,000 MG in Water for inj. (sterile) 20 ML IVP SCH (08:54)
[2019-05-27] MEDS: Insulin LISPRO 300 UNITS/3 ML VIAL SQ SCH ×4 (08:54→21:42)
[2019-05-27] MEDS: Insulin DETEMIR 100 UNIT/ML X5UNITS SQ SCH ×2 (08:55→21:43)
[2019-05-27] MEDS: Potassium Chloride Elixir 20 MEQ/15 ML UDC PO SCH (08:55)
[2019-05-27] MEDS: Spironolactone 25 MG TABLET PO SCH (11:20)
[2019-05-27 14:22] LABS: Adenovirus Not Detected (Not Detect); Coronavirus 229E Not Detected (Not Detect); Coronavirus HKU1 Not Detected (Not Detect); Coronavirus NL63 Not Detected (Not Detect); Coronavirus OC43 Not Detected (Not Detect); Human Metapneumovirus Not Detected (Not Detect); Human Rhinovirus/Enterovirus Not Detected (Not Detect)
[2019-05-27 14:24] LABS: Bordetella Pertussis Not Detected (Not Detect); Chlamydophila pneumoniae Not Detected (Not Detect); Influenza B Not Detected (Not Detect); Mycoplasma pneumoniae Not Detected (Not Detect); Parainfluenza Virus 1 Not Detected (Not Detect); Parainfluenza Virus 2 Not Detected (Not Detect); Parainfluenza Virus 3 Not Detected (Not Detect); Parainfluenza Virus 4 Not Detected (Not Detect); Respiratory Syncytial Virus Not Detected (Not Detect)
[2019-05-27] MEDS ORDERED: levoFLOXacin 750 MG/150 ML 750 MG/150 ML BAG IVPB SCH (18:00)
[2019-05-27] MEDS: MethylPREDNISolone 40 MG/ML VIAL IVP SCH ×2 (18:05→23:17)
[2019-05-27] MEDS: Acetaminophen 325 MG TABLET PO PRN (19:37)
[2019-05-27] MEDS: Budesonide/Formoterol 160/4.5 1 PUFF INH IH SCH (20:14)
[2019-05-27] MEDS: rOPINIRole 0.25 MG TABLET PO SCH (21:43)
[2019-05-28] MEDS: Ipratropium/Albuterol Neb 3 ML IH SCH ×5 (04:07→19:55)
[2019-05-28] MEDS: Budesonide/Formoterol 160/4.5 1 PUFF INH IH SCH ×2 (07:51→19:55)
[2019-05-28] MEDS: Venlafaxine XR (24 HR) 75 MG CAP.ER.24H PO SCH (08:24)
[2019-05-28] MEDS: Gabapentin 300 MG CAPSULE PO SCH ×3 (08:25→21:19)
[2019-05-28] MEDS: Aspirin 81 MG TAB.CHEW PO SCH (08:25)
[2019-05-28] MEDS: tiZANidine 4 MG TABLET PO SCH ×3 (08:25→21:20)
[2019-05-28] MEDS: Metoprolol XL (24 HR) Succ 25 MG TAB.ER.24H PO SCH (08:26)
[2019-05-28] MEDS: PARoxetine 20 MG TABLET PO SCH (08:26)
[2019-05-28] MEDS: Potassium Chloride Elixir 20 MEQ/15 ML UDC PO SCH (08:26)
[2019-05-28] MEDS: MethylPREDNISolone 40 MG/ML VIAL IVP SCH ×2 (08:26→16:01)
[2019-05-28] MEDS: Cholecalciferol (D-3) 1,000 UNIT (25MCG) TABLET PO SCH (08:26)
[2019-05-28] MEDS: Furosemide 20 MG/2 ML VIAL IVP SCH (08:26)
[2019-05-28] MEDS: Spironolactone 25 MG TABLET PO SCH (08:26)
[2019-05-28] MEDS: Insulin LISPRO 300 UNITS/3 ML VIAL SQ SCH ×4 (08:27→21:20)
[2019-05-28] MEDS: Insulin DETEMIR 100 UNIT/ML X5UNITS SQ SCH ×2 (08:34→21:20)
[2019-05-28 08:38] LABS: Basophils % 0.1 %; Eosinophils % 0.1 %; Hematocrit 36.6 % (35.3-44.9); Hemoglobin 12.1 g/dL (11.5-15.4); Immature Granulocytes % 0.8 % (0-4); Lymphocytes # 0.9 K/mcL (0.6-4.6); Lymphocytes % 6.8 %; Mean Corpuscular HGB Conc 33.1 g/dL (31.6-35.5); Mean Corpuscular Hemoglobin 28.9 pg (28.0-33.3); Mean Corpuscular Volume 87.4 fL (83.0-100.0); Mean Platelet Volume 10.5 fL (9.4-12.4); Monocytes # 0.2 K/mcL (0.0-1.3); Monocytes % 1.3 %; Neutrophils # 11.7 K/mcL (1.6-8.9); Platelet Count 226 K/mcL (140-400); Red Blood Count 4.19 M/mcL (3.82-4.97); Red Cell Distribution Width 13.1 % (11.5-14.5); Segmented Neutrophils % 90.9 %; White Blood Count 12.9 K/mcL (4.3-11.1)
[2019-05-28 08:47] LABS: Calcium 8.7 mg/dL (8.6-10.3); Potassium 4.5 mEq/L (3.5-5.1)
[2019-05-28] MEDS: Acetaminophen 325 MG TABLET PO PRN (10:33)
[2019-05-28] MEDS ORDERED: Insulin DETEMIR 100 UNIT/ML X5UNITS SQ ONE (11:08)
[2019-05-28] MEDS: Isosorbide MONOnitrate (24 HR) 30 MG TAB.ER.24H PO SCH (11:26)
[2019-05-28] MEDS: *HR* Heparin 5,000 UNIT/ML VIAL SQ SCH (17:04)
[2019-05-28] MEDS: rOPINIRole 0.25 MG TABLET PO SCH (21:20)
[2019-05-29] MEDS: MethylPREDNISolone 40 MG/ML VIAL IVP SCH ×2 (00:11→07:45)
[2019-05-29] MEDS: Ipratropium/Albuterol Neb 3 ML IH SCH ×7 (00:12→23:17)
[2019-05-29 04:23] LABS: Hematocrit 33.9 % (35.3-44.9); Hemoglobin 10.9 g/dL (11.5-15.4); Immature Granulocytes % 0.8 % (0-4); Lymphocytes # 0.9 K/mcL (0.6-4.6); Lymphocytes % 9.2 %; Mean Corpuscular HGB Conc 32.2 g/dL (31.6-35.5); Mean Corpuscular Hemoglobin 29.1 pg (28.0-33.3); Mean Corpuscular Volume 90.4 fL (83.0-100.0); Mean Platelet Volume 10.4 fL (9.4-12.4); Monocytes # 0.2 K/mcL (0.0-1.3); Monocytes % 2.2 %; Neutrophils # 8.9 K/mcL (1.6-8.9); Platelet Count 193 K/mcL (140-400); Red Blood Count 3.75 M/mcL (3.82-4.97); Red Cell Distribution Width 12.9 % (11.5-14.5); Segmented Neutrophils % 87.8 %; White Blood Count 10.2 K/mcL (4.3-11.1)
[2019-05-29 04:36] LABS: BUN/Creatinine Ratio 39 (6-26); Blood Urea Nitrogen 42 mg/dL (6-20); Calcium 8.5 mg/dL (8.6-10.3); Carbon Dioxide 25 mEq/L (23-29); Chloride 98 mEq/L (98-107); Glucose 197 mg/dL (70-105); Osmolality,Calculated 286 (280-300); Potassium 4.8 mEq/L (3.5-5.1); Sodium 130 mEq/L (136-145); eGFR For African Americans > 60 (> 60); eGFR For Non-African Americans 53 (> 60)
[2019-05-29] MEDS: *HR* Heparin 5,000 UNIT/ML VIAL SQ SCH ×2 (05:01→17:18)
[2019-05-29] MEDS: Acetaminophen 325 MG TABLET PO PRN ×2 (05:01→21:42)
[2019-05-29] MEDS: Budesonide/Formoterol 160/4.5 1 PUFF INH IH SCH ×2 (07:19→20:03)
[2019-05-29] MEDS: Spironolactone 25 MG TABLET PO SCH (07:41)
[2019-05-29] MEDS: Isosorbide MONOnitrate (24 HR) 30 MG TAB.ER.24H PO SCH (07:42)
[2019-05-29] MEDS: Gabapentin 300 MG CAPSULE PO SCH ×3 (07:42→21:35)
[2019-05-29] MEDS: Metoprolol XL (24 HR) Succ 25 MG TAB.ER.24H PO SCH (07:42)
[2019-05-29] MEDS: tiZANidine 4 MG TABLET PO SCH (07:42)
[2019-05-29] MEDS: PARoxetine 20 MG TABLET PO SCH (07:42)
[2019-05-29] MEDS: Venlafaxine XR (24 HR) 75 MG CAP.ER.24H PO SCH (07:42)
[2019-05-29] MEDS: Aspirin 81 MG TAB.CHEW PO SCH (07:43)
[2019-05-29] MEDS: Cholecalciferol (D-3) 1,000 UNIT (25MCG) TABLET PO SCH (07:43)
[2019-05-29] MEDS: Insulin DETEMIR 100 UNIT/ML X5UNITS SQ SCH ×2 (07:43→21:34)
[2019-05-29] MEDS: Insulin LISPRO 300 UNITS/3 ML VIAL SQ SCH ×4 (07:44→21:33)
[2019-05-29] MEDS ORDERED: Insulin DETEMIR 100 UNIT/ML X5UNITS SQ ONE (08:56)
[2019-05-29] MEDS ORDERED: Insulin DETEMIR 100 UNIT/ML X5UNITS SQ SCH (09:00)
[2019-05-29] MEDS: Furosemide 20 MG TABLET PO SCH ×2 (09:38→17:18)
[2019-05-29] MEDS ORDERED: Benzonatate 100 MG CAPSULE PO PRN (10:36)
[2019-05-29] MEDS ORDERED: tiZANidine 4 MG TABLET PO PRN (13:11)
[2019-05-29] MEDS: levoFLOXacin 750 MG/150 ML 750 MG/150 ML BAG IVPB SCH (13:59)
[2019-05-29] MEDS: rOPINIRole 0.25 MG TABLET PO SCH (21:34)
[2019-05-30 03:29] LABS: Basophils % 0.1 %; Hematocrit 35.3 % (35.3-44.9); Hemoglobin 11.3 g/dL (11.5-15.4); Immature Granulocytes % 0.6 % (0-4); Lymphocytes # 1.5 K/mcL (0.6-4.6); Lymphocytes % 13.6 %; Mean Corpuscular Hemoglobin 28.8 pg (28.0-33.3); Mean Corpuscular Volume 90.1 fL (83.0-100.0); Mean Platelet Volume 10.3 fL (9.4-12.4); Monocytes # 0.6 K/mcL (0.0-1.3); Monocytes % 5.4 %; Platelet Count 225 K/mcL (140-400); Red Blood Count 3.92 M/mcL (3.82-4.97); Red Cell Distribution Width 12.8 % (11.5-14.5); Segmented Neutrophils % 80.3 %; White Blood Count 11.2 K/mcL (4.3-11.1)
[2019-05-30 03:48] LABS: Calcium 8.4 mg/dL (8.6-10.3); Potassium 4.4 mEq/L (3.5-5.1)
[2019-05-30] MEDS: Ipratropium/Albuterol Neb 3 ML IH SCH ×2 (03:50→07:26)
[2019-05-30] MEDS: *HR* Heparin 5,000 UNIT/ML VIAL SQ SCH (05:27)
[2019-05-30] MEDS: Budesonide/Formoterol 160/4.5 1 PUFF INH IH SCH (07:26)
[2019-05-30 07:27] VITALS: BP 156/84
[2019-05-30] MEDS: PARoxetine 20 MG TABLET PO SCH (08:46)
[2019-05-30] MEDS: Cholecalciferol (D-3) 1,000 UNIT (25MCG) TABLET PO SCH (08:46)
[2019-05-30] MEDS: Venlafaxine XR (24 HR) 75 MG CAP.ER.24H PO SCH (08:47)
[2019-05-30] MEDS: Isosorbide MONOnitrate (24 HR) 30 MG TAB.ER.24H PO SCH (08:47)
[2019-05-30] MEDS: Aspirin 81 MG TAB.CHEW PO SCH (08:47)
[2019-05-30] MEDS: Metoprolol XL (24 HR) Succ 25 MG TAB.ER.24H PO SCH (08:47)
[2019-05-30] MEDS: Insulin LISPRO 300 UNITS/3 ML VIAL SQ SCH (08:47)
[2019-05-30] MEDS: Gabapentin 300 MG CAPSULE PO SCH (08:47)
[2019-05-30] MEDS: Spironolactone 25 MG TABLET PO SCH (08:47)
[2019-05-30] MEDS: Furosemide 20 MG TABLET PO SCH (08:47)
[2019-05-30] MEDS: Insulin DETEMIR 100 UNIT/ML X5UNITS SQ SCH (08:51)
[2019-05-30] MEDS: levoFLOXacin 750 MG/150 ML 750 MG/150 ML BAG IVPB SCH (08:56)
[2019-05-30] MEDS ORDERED: predniSONE 20 MG TABLET PO SCH (09:00)
[2019-06-02 11:55] LABS: Influenza A Subtype 2009 H1 DETECTED (Not Detect)
== END 2019-05-30 10:57 | disposition home or self-care (01) | DRG 720 ==
LOC: 2NNU 10:49 → EMEROOARM 10:49 → SUATTDRO 14:09 → 2NNU 14:46 → 2ANU 05-29 12:31
PROVIDERS: ADMIT Internal Medicine; ATTEND Student in an Organized Health Care Education/Training Program

== ENCOUNTER 2019-06-07 23:07 | Observation (INO) ==
[2019-06-08 00:06] LABS: BUN/Creatinine Ratio 41 (6-26); Blood Urea Nitrogen 36 mg/dL (6-20); Carbon Dioxide 26 mEq/L (23-29); Chloride 88 mEq/L (98-107); Glucose 520 mg/dL (70-105); Osmolality,Calculated 292 (280-300); Potassium 4.5 mEq/L (3.5-5.1); Sodium 125 mEq/L (136-145); Troponin I 0.05 ng/mL (< 0.04); eGFR For African Americans > 60 (> 60); eGFR For Non-African Americans > 60 (> 60)
[2019-06-08 00:26] LABS: Basophils % 0.3 %; Eosinophils # 0.1 K/mcL (0.0-0.6); Eosinophils % 0.7 %; Hematocrit 42.9 % (35.3-44.9); Hemoglobin 14.6 g/dL (11.5-15.4); Immature Granulocytes % 0.8 % (0-4); Lymphocytes # 3.6 K/mcL (0.6-4.6); Lymphocytes % 23.2 %; Mean Corpuscular Hemoglobin 29.3 pg (28.0-33.3); Mean Platelet Volume 9.3 fL (9.4-12.4); Monocytes # 0.8 K/mcL (0.0-1.3); Monocytes % 5.1 %; Neutrophils # 10.7 K/mcL (1.6-8.9); Platelet Count 329 K/mcL (140-400); Red Blood Count 4.99 M/mcL (3.82-4.97); Red Cell Distribution Width 12.5 % (11.5-14.5); Segmented Neutrophils % 69.9 %; White Blood Count 15.4 K/mcL (4.3-11.1)
[2019-06-08 00:51] LABS: VBG HCO3 26 mEq/L (21-27); VBG PCO2 46 mmHg (41-51); VBG PH 7.36 pH Units (7.32-7.42); VBG PO2 93 mmHg (25-50)
[2019-06-08] MEDS ORDERED: levoFLOXacin 750 MG/150 ML 750 MG/150 ML BAG IVPB ONE (01:41)
[2019-06-08] MEDS ORDERED: Insulin Regular, Human 100 UNIT/ML SQ ONE (01:42)
[2019-06-08] MEDS ORDERED: Aminoglycoside Consult 1 EACH MC ONE (02:14)
[2019-06-08] MEDS ORDERED: Naloxone 0.4 MG/ML INJ IVP PRN ×2 (02:32→03:01)
[2019-06-08] MEDS ORDERED: Albuterol 2.5 MG/3 ML NEBULIZER IH PRN (02:32)
[2019-06-08] MEDS ORDERED: Dextrose Gel 15 GM/37.5 ML TUBE PO PRN ×2 (03:04)
[2019-06-08] MEDS ORDERED: *HR* Dextrose 50 % in Water (Syg) 50 ML SYRINGE IVP PRN (03:04)
[2019-06-08] MEDS ORDERED: D5% in Water 1,000 ML IVC PRN (03:04)
[2019-06-08] MEDS: Ipratropium/Albuterol Neb 3 ML IH SCH ×4 (03:18→21:30)
[2019-06-08] MEDS: hydrOXYzine pamoate 25 MG CAPSULE PO PRN ×2 (03:43→12:54)
[2019-06-08] MEDS: Benzonatate 100 MG CAPSULE PO PRN ×2 (03:43→12:54)
[2019-06-08] MEDS ORDERED: Vancomycin (wt based) 1,000 MG VIAL IVPB SCH (04:00)
[2019-06-08 04:09] LABS: Basophils % 0.2 %; Eosinophils % 0.2 %; Hematocrit 40.6 % (35.3-44.9); Hemoglobin 14.4 g/dL (11.5-15.4); Immature Granulocytes % 0.9 % (0-4); Lymphocytes # 1.5 K/mcL (0.6-4.6); Lymphocytes % 7.9 %; Mean Corpuscular HGB Conc 35.5 g/dL (31.6-35.5); Mean Corpuscular Hemoglobin 28.8 pg (28.0-33.3); Mean Corpuscular Volume 81.2 fL (83.0-100.0); Mean Platelet Volume 9.3 fL (9.4-12.4); Monocytes # 0.3 K/mcL (0.0-1.3); Monocytes % 1.7 %; Neutrophils # 16.9 K/mcL (1.6-8.9); Platelet Count 330 K/mcL (140-400); Red Cell Distribution Width 12.7 % (11.5-14.5); Segmented Neutrophils % 89.1 %; White Blood Count 18.9 K/mcL (4.3-11.1)
[2019-06-08 04:21] LABS: Alanine Aminotransferase 22 Units/L (7-52); Albumin 3.6 g/dL (3.5-5.7); Albumin/Globulin Ratio 1.2 (1.1-2.2); Alkaline Phosphatase 105 Units/L (34-104); Aspartate Amino Transferase 12 Units/L (13-39); BUN/Creatinine Ratio 43 (6-26); Bilirubin,Total 0.4 mg/dL (0.3-1.0); Blood Urea Nitrogen 40 mg/dL (6-20); Carbon Dioxide 20 mEq/L (23-29); Chloride 88 mEq/L (98-107); Glucose 423 mg/dL (70-105); Magnesium 1.3 mg/dL (1.6-2.6); Osmolality,Calculated 284 (280-300); Phosphorous 4.9 mg/dL (2.7-4.5); Potassium 4.7 mEq/L (3.5-5.1); Sodium 123 mEq/L (136-145); Total Protein 6.6 g/dL (6.4-8.9); eGFR For African Americans > 60 (> 60); eGFR For Non-African Americans > 60 (> 60)
[2019-06-08] MEDS ORDERED: Aspirin 81 MG TAB.CHEW PO ONE (04:54)
[2019-06-08] MEDS: *HR* Heparin 5,000 UNIT/ML VIAL SQ SCH ×3 (05:17→22:00)
[2019-06-08] MEDS: Insulin LISPRO 300 UNITS/3 ML VIAL SQ SCH ×4 (06:05→21:59)
[2019-06-08] MEDS ORDERED: Furosemide 20 MG/2 ML VIAL IVP ONE (07:52)
[2019-06-08] MEDS: PARoxetine 20 MG TABLET PO SCH (08:27)
[2019-06-08] MEDS: Metoprolol XL (24 HR) Succ 25 MG TAB.ER.24H PO SCH (08:27)
[2019-06-08] MEDS: predniSONE 20 MG TABLET PO SCH (08:27)
[2019-06-08] MEDS: Furosemide 20 MG TABLET PO SCH ×2 (08:27→17:25)
[2019-06-08] MEDS ORDERED: Potassium Chloride Elixir 20 MEQ/15 ML UDC PO ONE (17:10)
[2019-06-08] MEDS: Nicotine 21 MG PATCH.TD24 TD SCH (17:25)
[2019-06-09] MEDS: Ipratropium/Albuterol Neb 3 ML IH SCH ×4 (04:02→22:30)
[2019-06-09 04:56] LABS: Hematocrit 36.6 % (35.3-44.9); Mean Corpuscular HGB Conc 34.7 g/dL (31.6-35.5); Mean Corpuscular Hemoglobin 29.1 pg (28.0-33.3); Mean Corpuscular Volume 83.9 fL (83.0-100.0); Mean Platelet Volume 9.1 fL (9.4-12.4); Platelet Count 279 K/mcL (140-400); Red Blood Count 4.36 M/mcL (3.82-4.97); White Blood Count 16.5 K/mcL (4.3-11.1)
[2019-06-09 04:57] LABS: Hemoglobin 12.7 g/dL (11.5-15.4)
[2019-06-09 05:13] LABS: Calcium 8.6 mg/dL (8.6-10.3); Potassium 4.7 mEq/L (3.5-5.1)
[2019-06-09] MEDS: *HR* Heparin 5,000 UNIT/ML VIAL SQ SCH ×3 (05:41→22:29)
[2019-06-09] MEDS ORDERED: 0.9 % Sodium Chloride 250 ML IVC ONE (07:41)
[2019-06-09] MEDS ORDERED: levoFLOXacin 750 MG/150 ML 750 MG/150 ML BAG IVPB SCH (09:00)
[2019-06-09] MEDS ORDERED: levoFLOXacin 750 MG TABLET PO SCH (09:00)
[2019-06-09] MEDS: hydrOXYzine pamoate 25 MG CAPSULE PO PRN ×2 (09:52→22:29)
[2019-06-09] MEDS: Benzonatate 100 MG CAPSULE PO PRN ×2 (09:52→22:29)
[2019-06-09] MEDS: Furosemide 20 MG TABLET PO SCH ×2 (09:52→17:49)
[2019-06-09] MEDS: PARoxetine 20 MG TABLET PO SCH (09:52)
[2019-06-09] MEDS: Aspirin 81 MG TAB.CHEW PO SCH (09:52)
[2019-06-09] MEDS: predniSONE 20 MG TABLET PO SCH (09:52)
[2019-06-09] MEDS: Metoprolol XL (24 HR) Succ 25 MG TAB.ER.24H PO SCH (09:52)
[2019-06-09] MEDS: Nicotine 21 MG PATCH.TD24 TD SCH (09:53)
[2019-06-09] MEDS ORDERED: FLU Vac QV 19-20 (6Month+)/PF 0.5 ML SYRINGE IM ONE (10:06)
[2019-06-09] MEDS: Insulin LISPRO 300 UNITS/3 ML VIAL SQ SCH ×4 (10:07→22:29)
[2019-06-09] MEDS: Insulin DETEMIR 100 UNIT/ML X5UNITS SQ SCH (12:48)
[2019-06-09] MEDS ORDERED: Insulin DETEMIR 100 UNIT/ML X5UNITS SQ SCH (21:00)
[2019-06-10] MEDS: Ipratropium/Albuterol Neb 3 ML IH SCH ×4 (03:51→23:00)
[2019-06-10 06:14] LABS: Hematocrit 36.8 % (35.3-44.9); Mean Corpuscular HGB Conc 32.6 g/dL (31.6-35.5); Mean Corpuscular Hemoglobin 29.2 pg (28.0-33.3); Mean Corpuscular Volume 89.5 fL (83.0-100.0); Mean Platelet Volume 9.7 fL (9.4-12.4); Platelet Count 265 K/mcL (140-400); Red Blood Count 4.11 M/mcL (3.82-4.97); Red Cell Distribution Width 12.9 % (11.5-14.5); White Blood Count 12.4 K/mcL (4.3-11.1)
[2019-06-10] MEDS: *HR* Heparin 5,000 UNIT/ML VIAL SQ SCH ×3 (06:28→21:24)
[2019-06-10 06:39] LABS: Calcium 8.7 mg/dL (8.6-10.3); Potassium 4.6 mEq/L (3.5-5.1)
[2019-06-10] MEDS ORDERED: 0.9 % Sodium Chloride 250 ML IVC ONE (07:47)
[2019-06-10] MEDS ORDERED: 0.9 % Sodium Chloride 1,000 ML IVC SCH (08:00)
[2019-06-10] MEDS ORDERED: levoFLOXacin 750 MG TABLET PO SCH (09:00)
[2019-06-10] MEDS: Benzonatate 100 MG CAPSULE PO PRN (09:58)
[2019-06-10] MEDS: PARoxetine 20 MG TABLET PO SCH (09:59)
[2019-06-10] MEDS: Aspirin 81 MG TAB.CHEW PO SCH (09:59)
[2019-06-10] MEDS: Insulin DETEMIR 100 UNIT/ML X5UNITS SQ SCH (10:00)
[2019-06-10] MEDS: predniSONE 20 MG TABLET PO SCH (10:00)
[2019-06-10] MEDS: Metoprolol XL (24 HR) Succ 25 MG TAB.ER.24H PO SCH (10:00)
[2019-06-10] MEDS: Nicotine 21 MG PATCH.TD24 TD SCH (10:01)
[2019-06-10] MEDS: Insulin LISPRO 300 UNITS/3 ML VIAL SQ SCH ×4 (10:01→21:28)
[2019-06-10] MEDS ORDERED: Acetaminophen 325 MG TABLET PO ONE (21:55)
[2019-06-11 04:43] LABS: Hematocrit 36.2 % (35.3-44.9); Mean Corpuscular HGB Conc 33.1 g/dL (31.6-35.5); Mean Corpuscular Volume 87.4 fL (83.0-100.0); Platelet Count 244 K/mcL (140-400); Red Blood Count 4.14 M/mcL (3.82-4.97); Red Cell Distribution Width 13.2 % (11.5-14.5); White Blood Count 11.2 K/mcL (4.3-11.1)
[2019-06-11] MEDS: Ipratropium/Albuterol Neb 3 ML IH SCH (04:59)
[2019-06-11 05:01] LABS: BUN/Creatinine Ratio 45 (6-26); Blood Urea Nitrogen 49 mg/dL (6-20); Calcium 8.8 mg/dL (8.6-10.3); Carbon Dioxide 24 mEq/L (23-29); Chloride 101 mEq/L (98-107); Glucose 113 mg/dL (70-105); Osmolality,Calculated 290 (280-300); Potassium 4.6 mEq/L (3.5-5.1); Sodium 133 mEq/L (136-145); eGFR For African Americans > 60 (> 60); eGFR For Non-African Americans 52 (> 60)
[2019-06-11] MEDS: *HR* Heparin 5,000 UNIT/ML VIAL SQ SCH (05:40)
[2019-06-11 08:33] VITALS: BP 149/69
[2019-06-11] MEDS ORDERED: Acetaminophen 325 MG TABLET PO PRN (09:03)
[2019-06-11] MEDS: predniSONE 20 MG TABLET PO SCH (09:19)
[2019-06-11] MEDS: Metoprolol XL (24 HR) Succ 25 MG TAB.ER.24H PO SCH (09:19)
[2019-06-11] MEDS: PARoxetine 20 MG TABLET PO SCH (09:19)
[2019-06-11] MEDS: Insulin LISPRO 300 UNITS/3 ML VIAL SQ SCH (09:20)
[2019-06-11] MEDS: Nicotine 21 MG PATCH.TD24 TD SCH (09:20)
[2019-06-11] MEDS: Insulin DETEMIR 100 UNIT/ML X5UNITS SQ SCH (09:27)
[2019-06-11] MEDS: Aspirin 81 MG TAB.CHEW PO SCH (09:27)
== END 2019-06-11 11:02 | disposition home or self-care (01) ==
LOC: EMEROOARM 23:07 → 2ANU 23:07 → SUATTDRO 06-08 02:13 → 2ANU 06-08 03:10
PROVIDERS: ADMIT Family Medicine; ATTEND Family Medicine

== ENCOUNTER 2019-06-15 21:41 | Inpatient (IN) ==
[2019-06-15] MEDS ORDERED: Cefepime HCl 2,000 MG in Water for inj. (sterile) 20 ML IVP ONE (21:50)
[2019-06-15] MEDS ORDERED: Ipratropium/Albuterol Neb 3 ML IH ONE (21:50)
[2019-06-15] MEDS ORDERED: Vancomycin 1,000 MG VIAL IVPB ONE (21:50)
[2019-06-15 22:10] LABS: Basophils % 0.2 %; Eosinophils # 0.2 K/mcL (0.0-0.6); Eosinophils % 1.1 %; Hemoglobin 12.6 g/dL (11.5-15.4); Immature Granulocytes % 1.1 % (0-4); Lymphocytes # 3.4 K/mcL (0.6-4.6); Lymphocytes % 16.8 %; Mean Corpuscular HGB Conc 33.2 g/dL (31.6-35.5); Mean Corpuscular Hemoglobin 28.8 pg (28.0-33.3); Mean Platelet Volume 9.7 fL (9.4-12.4); Monocytes # 0.7 K/mcL (0.0-1.3); Monocytes % 3.5 %; Platelet Count 296 K/mcL (140-400); Red Blood Count 4.37 M/mcL (3.82-4.97); Red Cell Distribution Width 13.2 % (11.5-14.5); Segmented Neutrophils % 77.3 %
[2019-06-15 22:13] LABS: INR 0.8; Prothrombin Time 9.2 Seconds (9.4-12.1)
[2019-06-15 22:14] LABS: Neutrophils # 15.9 K/mcL (1.6-8.9); White Blood Count 20.5 K/mcL (4.3-11.1)
[2019-06-15 22:16] LABS: Activated Partial Thrombo Time 27.7 Seconds (26.0-36.0)
[2019-06-15 22:45] LABS: Alanine Aminotransferase 39 Units/L (7-52); Albumin 3.5 g/dL (3.5-5.7); Albumin/Globulin Ratio 1.1 (1.1-2.2); Alkaline Phosphatase 126 Units/L (34-104); Aspartate Amino Transferase 39 Units/L (13-39); BUN/Creatinine Ratio 26 (6-26); Bilirubin,Direct 0.1 mg/dL (0.0-0.2); Bilirubin,Indirect 0.2 mg/dL (0.0-1.0); Bilirubin,Total 0.3 mg/dL (0.3-1.0); Blood Urea Nitrogen 22 mg/dL (6-20); Calcium 8.5 mg/dL (8.6-10.3); Carbon Dioxide 24 mEq/L (23-29); Chloride 93 mEq/L (98-107); Globulin 3.2 g/dL (2.4-3.5); Glucose 576 mg/dL (70-105); Osmolality,Calculated 298 (280-300); Potassium 3.7 mEq/L (3.5-5.1); Sodium 129 mEq/L (136-145); Total Protein 6.7 g/dL (6.4-8.9); Troponin I 0.05 ng/mL (< 0.04); eGFR For African Americans > 60 (> 60); eGFR For Non-African Americans > 60 (> 60)
[2019-06-15] MEDS ORDERED: *HR* Metoprolol 5 MG/5 ML VIAL IVP ONE (22:46)
[2019-06-15] MEDS ORDERED: Aspirin 325 MG TABLET PO ONE (22:49)
[2019-06-15] MEDS ORDERED: Insulin LISPRO 300 UNITS/3 ML VIAL SQ ONE (23:27)
[2019-06-16] MEDS ORDERED: Dextrose Gel 15 GM/37.5 ML TUBE PO PRN ×2 (00:36)
[2019-06-16] MEDS ORDERED: *HR* Dextrose 50 % in Water (Syg) 50 ML SYRINGE IVP PRN (00:36)
[2019-06-16] MEDS ORDERED: D5% in Water 1,000 ML IVC PRN (00:36)
[2019-06-16] MEDS ORDERED: Ipratropium/Albuterol Neb 3 ML IH PRN (00:40)
[2019-06-16] MEDS ORDERED: Naloxone 0.4 MG/ML INJ IVP PRN (00:54)
[2019-06-16] MEDS ORDERED: Ondansetron 4 MG/2 ML VIAL IVP PRN (00:54)
[2019-06-16] MEDS ORDERED: Azithromycin 500 MG in 0.9 % Sodium Chloride 250 ML IVPB SCH (01:00)
[2019-06-16 01:48] LABS: Basophils % 0.1 %; Eosinophils % 0.1 %; Hematocrit 34.3 % (35.3-44.9); Hemoglobin 11.6 g/dL (11.5-15.4); Immature Granulocytes % 0.5 % (0-4); Lymphocytes % 5.6 %; Mean Corpuscular HGB Conc 33.8 g/dL (31.6-35.5); Mean Corpuscular Hemoglobin 28.6 pg (28.0-33.3); Mean Corpuscular Volume 84.5 fL (83.0-100.0); Mean Platelet Volume 9.5 fL (9.4-12.4); Monocytes # 0.3 K/mcL (0.0-1.3); Monocytes % 1.6 %; Neutrophils # 15.6 K/mcL (1.6-8.9); Platelet Count 255 K/mcL (140-400); Red Blood Count 4.06 M/mcL (3.82-4.97); Red Cell Distribution Width 13.2 % (11.5-14.5); Segmented Neutrophils % 92.1 %
[2019-06-16] MEDS: Insulin DETEMIR 100 UNIT/ML X5UNITS SQ SCH ×2 (01:53→20:25)
[2019-06-16] MEDS: Insulin LISPRO 300 UNITS/3 ML VIAL SQ SCH ×6 (01:53→20:25)
[2019-06-16 02:09] LABS: Alanine Aminotransferase 39 Units/L (7-52); Albumin 3.4 g/dL (3.5-5.7); Albumin/Globulin Ratio 1.1 (1.1-2.2); Alkaline Phosphatase 115 Units/L (34-104); Aspartate Amino Transferase 30 Units/L (13-39); BUN/Creatinine Ratio 32 (6-26); Bilirubin,Total 0.3 mg/dL (0.3-1.0); Blood Urea Nitrogen 25 mg/dL (6-20); Calcium 8.9 mg/dL (8.6-10.3); Carbon Dioxide 20 mEq/L (23-29); Chloride 98 mEq/L (98-107); Globulin 3.1 g/dL (2.4-3.5); Glucose 307 mg/dL (70-105); Osmolality,Calculated 286 (280-300); Potassium 3.6 mEq/L (3.5-5.1); Sodium 130 mEq/L (136-145); Total Protein 6.5 g/dL (6.4-8.9); eGFR For African Americans > 60 (> 60); eGFR For Non-African Americans > 60 (> 60)
[2019-06-16] MEDS ORDERED: *HR* Metoprolol 5 MG/5 ML VIAL IVP ONE (02:12)
[2019-06-16] MEDS ORDERED: Furosemide 20 MG/2 ML VIAL IVP ONE (02:12)
[2019-06-16 02:15] LABS: Troponin I 0.45 ng/mL (< 0.04)
[2019-06-16] MEDS ORDERED: *HR* Heparin 5,000 UNIT/ML VIAL IVP PRN ×6 (02:55→04:15)
[2019-06-16] MEDS ORDERED: *HR* Heparin 5,000 UNIT/ML VIAL IVP ONE ×3 (02:55→04:15)
[2019-06-16] MEDS ORDERED: Heparin 25,000 UNIT/250 ML D5W 25,000 UNIT/250 ML IV.SOLN IVC SCH ×2 (03:00)
[2019-06-16 03:45] LABS: Hematocrit 32.1 % (35.3-44.9); Hemoglobin 11.1 g/dL (11.5-15.4); Mean Corpuscular HGB Conc 34.6 g/dL (31.6-35.5); Mean Corpuscular Hemoglobin 29.4 pg (28.0-33.3); Mean Corpuscular Volume 84.9 fL (83.0-100.0); Mean Platelet Volume 9.4 fL (9.4-12.4); Platelet Count 238 K/mcL (140-400); Red Blood Count 3.78 M/mcL (3.82-4.97); Red Cell Distribution Width 13.2 % (11.5-14.5)
[2019-06-16 03:47] LABS: INR 0.9
[2019-06-16 03:48] LABS: Heparin anti-factor XA UFH < 0.04 IU/mL (0.30-0.70)
[2019-06-16] MEDS: Heparin 25,000 UNIT/250 ML D5W 25,000 UNIT/250 ML IV.SOLN IVC SCH (05:13)
[2019-06-16] MEDS ORDERED: *HR* Heparin 5,000 UNIT/ML VIAL SQ SCH (06:00)
[2019-06-16] MEDS ORDERED: MethylPREDNISolone 40 MG/ML VIAL IVP SCH (06:00)
[2019-06-16] MEDS ORDERED: Cefepime HCl 2,000 MG in 0.9 % Sodium Chloride Mini Bag 100 ML IVPB SCH (06:00)
[2019-06-16] MEDS: Aspirin 81 MG TAB.CHEW PO SCH (07:57)
[2019-06-16] MEDS: Metoprolol XL (24 HR) Succ 25 MG TAB.ER.24H PO SCH (07:57)
[2019-06-16] MEDS ORDERED: Spironolactone 25 MG TABLET PO SCH (09:00)
[2019-06-16 11:58] LABS: Adenovirus Not Detected (Not Detect); Bordetella Pertussis Not Detected (Not Detect); Chlamydophila pneumoniae Not Detected (Not Detect); Coronavirus 229E Not Detected (Not Detect); Coronavirus HKU1 Not Detected (Not Detect); Coronavirus NL63 Not Detected (Not Detect); Coronavirus OC43 Not Detected (Not Detect); Human Metapneumovirus Not Detected (Not Detect); Human Rhinovirus/Enterovirus DETECTED (Not Detect); Influenza A Subtype 2009 H1 Not Detected (Not Detect); Influenza B Not Detected (Not Detect); Mycoplasma pneumoniae Not Detected (Not Detect); Parainfluenza Virus 1 Not Detected (Not Detect); Parainfluenza Virus 2 Not Detected (Not Detect); Parainfluenza Virus 3 Not Detected (Not Detect); Parainfluenza Virus 4 Not Detected (Not Detect); Respiratory Syncytial Virus Not Detected (Not Detect)
[2019-06-16] MEDS ORDERED: Isosorbide MONOnitrate (24 HR) 30 MG TAB.ER.24H PO SCH (13:00)
[2019-06-16] MEDS ORDERED: Furosemide 20 MG/2 ML VIAL IVP SCH (13:00)
[2019-06-16] MEDS: Ipratropium/Albuterol Neb 3 ML IH SCH ×2 (16:02→21:49)
[2019-06-16] MEDS: Furosemide 40 MG/4 ML VIAL IVP SCH (16:53)
[2019-06-16] MEDS: Doxycycline 100 MG CAPSULE PO SCH (20:26)
[2019-06-17] MEDS: Insulin LISPRO 300 UNITS/3 ML VIAL SQ SCH ×6 (00:19→20:06)
[2019-06-17] MEDS: Ipratropium/Albuterol Neb 3 ML IH SCH ×5 (03:51→22:11)
[2019-06-17 06:47] LABS: Hemoglobin 9.6 g/dL (11.5-15.4); Mean Corpuscular HGB Conc 33.1 g/dL (31.6-35.5); Mean Corpuscular Hemoglobin 28.6 pg (28.0-33.3); Mean Corpuscular Volume 86.3 fL (83.0-100.0); Mean Platelet Volume 9.4 fL (9.4-12.4); Platelet Count 252 K/mcL (140-400); Red Blood Count 3.36 M/mcL (3.82-4.97); Red Cell Distribution Width 13.5 % (11.5-14.5); White Blood Count 14.5 K/mcL (4.3-11.1)
[2019-06-17 07:08] LABS: BUN/Creatinine Ratio 37 (6-26); Blood Urea Nitrogen 37 mg/dL (6-20); Calcium 8.9 mg/dL (8.6-10.3); Carbon Dioxide 28 mEq/L (23-29); Chloride 98 mEq/L (98-107); Glucose 142 mg/dL (70-105); Osmolality,Calculated 287 (280-300); Potassium 3.4 mEq/L (3.5-5.1); Sodium 133 mEq/L (136-145); eGFR For African Americans > 60 (> 60); eGFR For Non-African Americans 56 (> 60)
[2019-06-17] MEDS ORDERED: Spironolactone 25 MG TABLET PO SCH (09:00)
[2019-06-17] MEDS: Doxycycline 100 MG CAPSULE PO SCH ×2 (09:29→20:06)
[2019-06-17] MEDS: predniSONE 20 MG TABLET PO SCH (09:29)
[2019-06-17] MEDS: Aspirin 81 MG TAB.CHEW PO SCH (09:29)
[2019-06-17] MEDS: Metoprolol XL (24 HR) Succ 25 MG TAB.ER.24H PO SCH (09:29)
[2019-06-17] MEDS: Spironolactone 25 MG TABLET PO SCH (09:29)
[2019-06-17] MEDS: Furosemide 40 MG/4 ML VIAL IVP SCH (09:30)
[2019-06-17] MEDS: Heparin 25,000 UNIT/250 ML D5W 25,000 UNIT/250 ML IV.SOLN IVC SCH (09:41)
[2019-06-17] MEDS: Insulin DETEMIR 100 UNIT/ML X5UNITS SQ SCH (20:07)
[2019-06-18] MEDS: Insulin LISPRO 300 UNITS/3 ML VIAL SQ SCH ×4 (00:04→12:23)
[2019-06-18 01:07] LABS: Hematocrit 29.1 % (35.3-44.9); Hemoglobin 9.6 g/dL (11.5-15.4); Mean Corpuscular Hemoglobin 29.2 pg (28.0-33.3); Mean Corpuscular Volume 88.4 fL (83.0-100.0); Mean Platelet Volume 10.1 fL (9.4-12.4); Platelet Count 269 K/mcL (140-400); Red Blood Count 3.29 M/mcL (3.82-4.97); White Blood Count 11.3 K/mcL (4.3-11.1)
[2019-06-18 01:29] LABS: Calcium 8.7 mg/dL (8.6-10.3); Potassium 4.1 mEq/L (3.5-5.1)
[2019-06-18] MEDS: Ipratropium/Albuterol Neb 3 ML IH SCH ×2 (03:35→10:52)
[2019-06-18] MEDS ORDERED: 0.9 % Sodium Chloride 1,000 ML IVC SCH (08:30)
[2019-06-18] MEDS ORDERED: Furosemide 20 MG TABLET PO SCH (09:00)
[2019-06-18] MEDS: Doxycycline 100 MG CAPSULE PO SCH (09:12)
[2019-06-18] MEDS: Spironolactone 25 MG TABLET PO SCH (09:13)
[2019-06-18] MEDS: Aspirin 81 MG TAB.CHEW PO SCH (09:14)
[2019-06-18] MEDS: Metoprolol XL (24 HR) Succ 25 MG TAB.ER.24H PO SCH (09:14)
[2019-06-18] MEDS: predniSONE 20 MG TABLET PO SCH (09:15)
[2019-06-18 11:24] VITALS: BP 159/94
[2019-06-18] MEDS ORDERED: FLU Vac QV 19-20 (6Month+)/PF 0.5 ML SYRINGE IM ONE (13:37)
== END 2019-06-18 14:39 | disposition home or self-care (01) | DRG 720 ==
LOC: 2NNU 21:41 → EMEROOARM 21:41 → OBSVTOIN 06-16 00:02 → 2NNU 06-16 00:40 → 2NENU 06-16 13:56
PROVIDERS: ADMIT Student in an Organized Health Care Education/Training Program; ATTEND Student in an Organized Health Care Education/Training Program

== ENCOUNTER 2019-08-24 12:06 | Observation (INO) ==
[2019-08-24] MEDS ORDERED: Isovue-370 500 ML BOTTLE IVP ONE (12:20)
[2019-08-24 12:44] LABS: INR 0.9; Prothrombin Time 10.2 Seconds (9.4-12.1)
[2019-08-24 12:46] LABS: Activated Partial Thrombo Time 30.2 Seconds (26.0-36.0)
[2019-08-24 12:47] LABS: BUN/Creatinine Ratio 14 (6-26); Blood Urea Nitrogen 12 mg/dL (6-20); Calcium 9.3 mg/dL (8.6-10.3); Carbon Dioxide 26 mEq/L (23-29); Chloride 102 mEq/L (98-107); Glucose 149 mg/dL (70-105); Osmolality,Calculated 285 (280-300); Potassium 3.5 mEq/L (3.5-5.1); Sodium 136 mEq/L (136-145); eGFR For African Americans > 60 (> 60); eGFR For Non-African Americans > 60 (> 60)
[2019-08-24 12:49] LABS: Troponin I < 0.03 ng/mL (< 0.04)
[2019-08-24] MEDS ORDERED: Aspirin 81 MG TAB.CHEW PO STA (13:13)
[2019-08-24 13:26] LABS: Hematocrit 40.9 % (35.3-44.9); Hemoglobin 13.7 g/dL (11.5-15.4); Mean Corpuscular HGB Conc 33.5 g/dL (31.6-35.5); Mean Corpuscular Hemoglobin 28.4 pg (28.0-33.3); Mean Corpuscular Volume 84.9 fL (83.0-100.0); Mean Platelet Volume 8.9 fL (9.4-12.4); Platelet Count 249 K/mcL (140-400); Red Blood Count 4.82 M/mcL (3.82-4.97); Red Cell Distribution Width 13.7 % (11.5-14.5); White Blood Count 9.3 K/mcL (4.3-11.1)
[2019-08-24] MEDS ORDERED: Ondansetron 4 MG/2 ML VIAL IVP PRN (14:05)
[2019-08-24] MEDS ORDERED: Naloxone 0.4 MG/ML INJ IVP PRN (14:05)
[2019-08-24] MEDS ORDERED: Ipratropium/Albuterol Neb 3 ML IH PRN (15:07)
[2019-08-24] MEDS ORDERED: D5% in Water 1,000 ML IVC PRN (15:29)
[2019-08-24] MEDS ORDERED: Dextrose Gel 15 GM/37.5 ML TUBE PO PRN ×2 (15:29)
[2019-08-24] MEDS ORDERED: *HR* Dextrose 50 % in Water (Syg) 50 ML SYRINGE IVP PRN (15:29)
[2019-08-24] MEDS ORDERED: *HR* Metoprolol 5 MG/5 ML VIAL IVP PRN (18:29)
[2019-08-24] MEDS: Insulin LISPRO 300 UNITS/3 ML VIAL SQ SCH (18:50)
[2019-08-24] MEDS: Budesonide/Formoterol 160/4.5 1 PUFF INH IH SCH (19:58)
[2019-08-24] MEDS ORDERED: Insulin LISPRO 300 UNITS/3 ML VIAL SQ SCH (21:00)
[2019-08-25] MEDS: Insulin LISPRO 300 UNITS/3 ML VIAL SQ SCH ×3 (00:04→11:46)
[2019-08-25 03:22] LABS: Basophils # 0.1 K/mcL (0.0-0.2); Basophils % 0.6 %; Eosinophils # 0.1 K/mcL (0.0-0.6); Hematocrit 42.2 % (35.3-44.9); Hemoglobin 14.1 g/dL (11.5-15.4); Immature Granulocytes % 0.2 % (0-4); Lymphocytes # 3.8 K/mcL (0.6-4.6); Lymphocytes % 38.8 %; Mean Corpuscular HGB Conc 33.4 g/dL (31.6-35.5); Mean Corpuscular Hemoglobin 28.4 pg (28.0-33.3); Mean Corpuscular Volume 85.1 fL (83.0-100.0); Mean Platelet Volume 9.3 fL (9.4-12.4); Monocytes # 0.6 K/mcL (0.0-1.3); Monocytes % 5.9 %; Neutrophils # 5.2 K/mcL (1.6-8.9); Platelet Count 281 K/mcL (140-400); Red Blood Count 4.96 M/mcL (3.82-4.97); Red Cell Distribution Width 13.8 % (11.5-14.5); Segmented Neutrophils % 53.5 %; White Blood Count 9.7 K/mcL (4.3-11.1)
[2019-08-25 03:41] LABS: BUN/Creatinine Ratio 14 (6-26); Blood Urea Nitrogen 13 mg/dL (6-20); Calcium 9.6 mg/dL (8.6-10.3); Carbon Dioxide 27 mEq/L (23-29); Chloride 101 mEq/L (98-107); Chol/HDL Ratio 8.4 (0-4.9); Cholesterol 337 mg/dL (< 200); Glucose 91 mg/dL (70-105); HDL Cholesterol 40 mg/dL (40-59); LDL Cholesterol,Calculated 256 mg/dL (0-99); Osmolality,Calculated 286 (280-300); Potassium 3.1 mEq/L (3.5-5.1); Sodium 138 mEq/L (136-145); Triglycerides 206 mg/dL (< 150); eGFR For African Americans > 60 (> 60); eGFR For Non-African Americans > 60 (> 60)
[2019-08-25] MEDS: Budesonide/Formoterol 160/4.5 1 PUFF INH IH SCH (08:00)
[2019-08-25] MEDS ORDERED: Potassium Chloride Elixir 20 MEQ/15 ML UDC PO ONE (08:53)
[2019-08-25] MEDS ORDERED: Aspirin 81 MG TAB.CHEW PO SCH (09:00)
[2019-08-25] MEDS ORDERED: PARoxetine 20 MG TABLET PO SCH (09:00)
[2019-08-25] MEDS ORDERED: Furosemide 20 MG TABLET PO SCH (09:00)
[2019-08-25 10:51] VITALS: BP 170/76
[2019-08-25] MEDS ORDERED: Insulin LISPRO 300 UNITS/3 ML VIAL SQ SCH ×2 (16:30→21:00)
== END 2019-08-25 12:32 | disposition home health service (06) ==
LOC: 2ANU 12:06 → EMEROOARM 12:06 → SUATTDRO 14:05 → 2ANU 15:25
PROVIDERS: ADMIT Internal Medicine; ATTEND Family Medicine

== ENCOUNTER 2019-10-23 05:49 | Observation (INO) ==
[2019-10-23] MEDS ORDERED: cefTRIAXone 1,000 MG in Water for inj. (sterile) 10 ML IVP ONE (06:00)
[2019-10-23] MEDS ORDERED: methylPREDNISolone 125 MG/2 ML VIAL IVP ONE (06:00)
[2019-10-23] MEDS ORDERED: Azithromycin 500 MG in 0.9 % Sodium Chloride 250 ML IVPB ONE (06:00)
[2019-10-23 06:27] LABS: Basophils # 0.1 K/mcL (0.0-0.2); Basophils % 0.2 %; Eosinophils # 0.1 K/mcL (0.0-0.6); Eosinophils % 0.6 %; Hematocrit 42.5 % (35.3-44.9); Hemoglobin 13.7 g/dL (11.5-15.4); Immature Granulocytes % 0.9 % (0-4); Lymphocytes # 3.4 K/mcL (0.6-4.6); Lymphocytes % 16.3 %; Mean Corpuscular HGB Conc 32.2 g/dL (31.6-35.5); Mean Corpuscular Hemoglobin 28.7 pg (28.0-33.3); Mean Corpuscular Volume 88.9 fL (83.0-100.0); Mean Platelet Volume 9.3 fL (9.4-12.4); Monocytes # 0.7 K/mcL (0.0-1.3); Monocytes % 3.4 %; Neutrophils # 16.3 K/mcL (1.6-8.9); Platelet Count 265 K/mcL (140-400); Red Blood Count 4.78 M/mcL (3.82-4.97); Red Cell Distribution Width 13.2 % (11.5-14.5); Segmented Neutrophils % 78.6 %; White Blood Count 20.8 K/mcL (4.3-11.1)
[2019-10-23 06:32] LABS: INR 0.9; Prothrombin Time 9.8 Seconds (9.4-12.1)
[2019-10-23 06:32] LABS: VBG HCO3 29 mEq/L (21-27); VBG PCO2 61 mmHg (41-51); VBG PH 7.28 pH Units (7.32-7.42); VBG PO2 90 mmHg (25-50)
[2019-10-23 06:35] LABS: Activated Partial Thrombo Time 26.4 Seconds (26.0-36.0)
[2019-10-23 06:57] LABS: Troponin I 0.04 ng/mL (< 0.04)
[2019-10-23 06:58] LABS: Alanine Aminotransferase 80 Units/L (7-52); Albumin/Globulin Ratio 1.4 (1.1-2.2); Alkaline Phosphatase 230 Units/L (34-104); Aspartate Amino Transferase 146 Units/L (13-39); BUN/Creatinine Ratio 24 (6-26); Bilirubin,Direct 0.1 mg/dL (0.0-0.2); Bilirubin,Indirect 0.3 mg/dL (0.0-1.0); Bilirubin,Total 0.4 mg/dL (0.3-1.0); Blood Urea Nitrogen 24 mg/dL (6-20); Calcium 9.2 mg/dL (8.6-10.3); Carbon Dioxide 26 mEq/L (23-29); Chloride 96 mEq/L (98-107); Globulin 2.9 g/dL (2.4-3.5); Glucose 423 mg/dL (70-105); Osmolality,Calculated 298 (280-300); Potassium 4.3 mEq/L (3.5-5.1); Sodium 133 mEq/L (136-145); Total Protein 6.9 g/dL (6.4-8.9); eGFR For African Americans > 60 (> 60); eGFR For Non-African Americans 56 (> 60)
[2019-10-23] MEDS ORDERED: Naloxone 0.4 MG/ML INJ IVP PRN (08:30)
[2019-10-23] MEDS ORDERED: Ondansetron 4 MG/2 ML VIAL IVP PRN (08:30)
[2019-10-23] MEDS ORDERED: D5% in Water 1,000 ML IVC PRN (08:42)
[2019-10-23] MEDS ORDERED: Insulin Regular, Human 100 UNIT/ML IV ONE (08:42)
[2019-10-23] MEDS ORDERED: *HR* Dextrose 50 % in Water (Vial) 50 ML VIAL IVP PRN (08:42)
[2019-10-23] MEDS ORDERED: Dextrose Gel 15 GM/37.5 ML TUBE PO PRN ×2 (08:42)
[2019-10-23] MEDS ORDERED: Furosemide 20 MG/2 ML VIAL IVP SCH (09:00)
[2019-10-23] MEDS: Budesonide/Formoterol 160/4.5 1 PUFF INH IH SCH ×2 (11:09→21:50)
[2019-10-23] MEDS: Tiotropium 18 MCG inhalation IH SCH (11:09)
[2019-10-23] MEDS: Aspirin Enteric Coated 325 MG Tablet PO SCH (13:09)
[2019-10-23] MEDS: Spironolactone 25 MG TABLET PO SCH (13:09)
[2019-10-23] MEDS: PARoxetine 20 MG TABLET PO SCH (13:09)
[2019-10-23] MEDS: Insulin LISPRO 300 UNITS/3 ML VIAL SQ SCH ×4 (13:11→20:47)
[2019-10-23] MEDS: Nicotine 14 MG PATCH.TD24 TD SCH (13:21)
[2019-10-23 14:47] LABS: Bilirubin,Urine Negative (Negative); Blood,Urine Trace (Negative); Clarity,Urine Clear (Clear); Color,Urine Light-Yellow (Yellow); Glucose,Urine (UA) >=1000 mg/dL (Normal); Ketones,Urine 20 mg/dL (Negative); Leukocyte Esterase,Urine Negative (Negative); Nitrite,Urine Negative (Negative); PH,Urine 6.5 pH Units (5.0-8.0); Protein,Urine 200 mg/dL (Neg-Trace); RBC,Urine 0-3 per hpf (0-3); Specific Gravity,Urine 1.021 (1.010-1.025); Squamous Epithelial Cell,Urine Few per hpf (None-Few); Urobilinogen,Urine Normal (Normal); WBC,Urine 0-3 per hpf (0-3)
[2019-10-23] MEDS: carvediloL 25 MG TABLET PO SCH (16:36)
[2019-10-23] MEDS: MethylPREDNISolone 40 MG/ML VIAL IVP SCH (17:07)
[2019-10-23] MEDS: *HR* Heparin 5,000 UNIT/ML VIAL SQ SCH (17:07)
[2019-10-23] MEDS ORDERED: Insulin DETEMIR 100 UNIT/ML X5UNITS SQ SCH (21:00)
[2019-10-23] MEDS ORDERED: Insulin LISPRO 300 UNITS/3 ML VIAL SQ SCH (21:00)
[2019-10-23] MEDS: Ibuprofen 400 MG TABLET PO PRN (22:07)
[2019-10-24 04:36] LABS: Basophils % 0.1 %; Hemoglobin 13.3 g/dL (11.5-15.4); Immature Granulocytes % 0.6 % (0-4); Lymphocytes # 1.3 K/mcL (0.6-4.6); Lymphocytes % 7.9 %; Mean Corpuscular HGB Conc 34.1 g/dL (31.6-35.5); Mean Corpuscular Volume 85.2 fL (83.0-100.0); Mean Platelet Volume 9.2 fL (9.4-12.4); Monocytes # 0.3 K/mcL (0.0-1.3); Monocytes % 1.9 %; Neutrophils # 14.4 K/mcL (1.6-8.9); Platelet Count 244 K/mcL (140-400); Red Blood Count 4.58 M/mcL (3.82-4.97); Red Cell Distribution Width 13.1 % (11.5-14.5); Segmented Neutrophils % 89.5 %
[2019-10-24 04:53] LABS: Calcium 9.2 mg/dL (8.6-10.3); Magnesium 1.7 mg/dL (1.6-2.6); Potassium 3.9 mEq/L (3.5-5.1)
[2019-10-24] MEDS: MethylPREDNISolone 40 MG/ML VIAL IVP SCH ×2 (06:11→18:22)
[2019-10-24] MEDS: *HR* Heparin 5,000 UNIT/ML VIAL SQ SCH ×2 (06:11→18:22)
[2019-10-24] MEDS: carvediloL 25 MG TABLET PO SCH ×2 (06:23→15:47)
[2019-10-24] MEDS: Insulin LISPRO 300 UNITS/3 ML VIAL SQ SCH ×3 (07:07→15:44)
[2019-10-24] MEDS: Ibuprofen 400 MG TABLET PO PRN (07:14)
[2019-10-24 08:23] LABS: Acinetobacter baumannii by PCR Not Detected (Not Detect); Candida albicans by PCR Not Detected (Not Detect); Candida glabrata by PCR Not Detected (Not Detect); Candida krusei by PCR Not Detected (Not Detect); Candida parapsilosis by PCR Not Detected (Not Detect); Candida tropicalis by PCR Not Detected (Not Detect); Enterobacter cloacae Cmplx PCR Not Detected (Not Detect); Enterobacteriaceae by PCR Not Detected (Not Detect); Enterococcus by PCR Not Detected (Not Detect); Escherichia coli by PCR Not Detected (Not Detect); Klebsiella oxytoca by PCR Not Detected (Not Detect); Klebsiella pneumoniae by PCR Not Detected (Not Detect); Proteus by PCR Not Detected (Not Detect); Pseudomonas aeruginosa by PCR Not Detected (Not Detect); Serratia marcescens by PCR Not Detected (Not Detect); Staphylococcus aureus by PCR Not Detected (Not Detect); Staphylococcus by PCR DETECTED (Not Detect); Streptococcus agalactiae(B)PCR Not Detected (Not Detect); Streptococcus by PCR Not Detected (Not Detect); Streptococcus pneumoniae PCR Not Detected (Not Detect); Streptococcus pyogenes (A) PCR Not Detected (Not Detect); mecA Methicillin-Resist Gene DETECTED (Not Detect)
[2019-10-24] MEDS: PARoxetine 20 MG TABLET PO SCH (08:42)
[2019-10-24] MEDS: Aspirin Enteric Coated 325 MG Tablet PO SCH (08:42)
[2019-10-24] MEDS: Spironolactone 25 MG TABLET PO SCH (08:42)
[2019-10-24] MEDS: Nicotine 14 MG PATCH.TD24 TD SCH (08:43)
[2019-10-24] MEDS ORDERED: Azithromycin 500 MG in 0.9 % Sodium Chloride 250 ML IVPB SCH (09:00)
[2019-10-24] MEDS: Budesonide/Formoterol 160/4.5 1 PUFF INH IH SCH (10:09)
[2019-10-24] MEDS: Tiotropium 18 MCG inhalation IH SCH (16:22)
[2019-10-24] MEDS ORDERED: Isovue-370 500 ML BOTTLE IVP ONE (17:25)
[2019-10-24 19:08] VITALS: BP 148/78
== END 2019-10-24 20:10 | disposition short-term general hospital (02) ==
LOC: 2NENU 05:49 → EMEROOARM 05:49 → SUATTDRO 07:54 → ICNU 10:59
PROVIDERS: ADMIT Internal Medicine; ATTEND Internal Medicine

== ENCOUNTER 2019-11-11 05:16 | Observation (INO) ==
[2019-11-11 06:18] LABS: Basophils % 0.3 %; Eosinophils % 0.3 %; Hematocrit 40.6 % (35.3-44.9); Hemoglobin 14.2 g/dL (11.5-15.4); Immature Granulocytes % 0.3 % (0-4); Lymphocytes # 2.9 K/mcL (0.6-4.6); Mean Corpuscular Hemoglobin 28.4 pg (28.0-33.3); Mean Corpuscular Volume 81.2 fL (83.0-100.0); Monocytes # 0.4 K/mcL (0.0-1.3); Monocytes % 4.7 %; Neutrophils # 5.9 K/mcL (1.6-8.9); Platelet Count 306 K/mcL (140-400); Red Cell Distribution Width 12.6 % (11.5-14.5); Segmented Neutrophils % 63.4 %; White Blood Count 9.4 K/mcL (4.3-11.1)
[2019-11-11 07:11] LABS: Bacteria,Urine Few per hpf (None-Few); Bilirubin,Urine Negative (Negative); Blood,Urine Negative (Negative); Clarity,Urine Clear (Clear); Color,Urine Light-Yellow (Yellow); Glucose,Urine (UA) 300 mg/dL (Normal); Hyaline Casts,Urine Few per lpf (None Seen); Ketones,Urine Negative (Negative); Leukocyte Esterase,Urine Negative (Negative); Mucus,Urine Few per lpf (None-Few); Nitrite,Urine Negative (Negative); PH,Urine 6.5 pH Units (5.0-8.0); Protein,Urine 100 mg/dL (Neg-Trace); RBC,Urine 0-3 per hpf (0-3); Squamous Epithelial Cell,Urine Few per hpf (None-Few); Urobilinogen,Urine Normal (Normal); WBC,Urine 0-3 per hpf (0-3)
[2019-11-11 07:52] LABS: Alanine Aminotransferase 16 Units/L (7-52); Albumin 3.7 g/dL (3.5-5.7); Albumin/Globulin Ratio 1.5 (1.1-2.2); Alkaline Phosphatase 120 Units/L (34-104); Aspartate Amino Transferase 15 Units/L (13-39); BUN/Creatinine Ratio 15 (6-26); Bilirubin,Direct 0.1 mg/dL (0.0-0.2); Bilirubin,Indirect 0.4 mg/dL (0.0-1.0); Bilirubin,Total 0.5 mg/dL (0.3-1.0); Blood Urea Nitrogen 15 mg/dL (6-20); Calcium 8.9 mg/dL (8.6-10.3); Carbon Dioxide 31 mEq/L (23-29); Chloride 87 mEq/L (98-107); Globulin 2.5 g/dL (2.4-3.5); Glucose 280 mg/dL (70-105); Lipase 16 Units/L (11-82); Osmolality,Calculated 277 (280-300); Potassium 2.8 mEq/L (3.5-5.1); Sodium 128 mEq/L (136-145); Total Protein 6.2 g/dL (6.4-8.9); eGFR For African Americans > 60 (> 60); eGFR For Non-African Americans 58 (> 60)
[2019-11-11] MEDS ORDERED: Naloxone 0.4 MG/ML INJ IVP PRN (09:27)
[2019-11-11] MEDS: Budesonide/Formoterol 160/4.5 1 PUFF INH IH SCH ×2 (10:40→22:39)
[2019-11-11] MEDS ORDERED: 0.9 % Sodium Chloride 1,000 ML IVC SCH (10:45)
[2019-11-11] MEDS: carvediloL 25 MG TABLET PO SCH ×2 (11:15→17:42)
[2019-11-11] MEDS ORDERED: Ipratropium/Albuterol Neb 3 ML IH PRN (12:00)
[2019-11-11 13:59] LABS: BUN/Creatinine Ratio 14 (6-26); Blood Urea Nitrogen 14 mg/dL (6-20); Carbon Dioxide 28 mEq/L (23-29); Chloride 89 mEq/L (98-107); Glucose 274 mg/dL (70-105); Magnesium 1.5 mg/dL (1.6-2.6); Osmolality,Calculated 280 (280-300); Phosphorous 3.2 mg/dL (2.7-4.5); Potassium 3.3 mEq/L (3.5-5.1); Sodium 130 mEq/L (136-145); Troponin I 0.03 ng/mL (< 0.04); eGFR For African Americans > 60 (> 60); eGFR For Non-African Americans 57 (> 60)
[2019-11-11] MEDS ORDERED: *HR* Dextrose 50 % in Water (Vial) 50 ML VIAL IVP PRN (16:20)
[2019-11-11] MEDS ORDERED: Dextrose Gel 15 GM/37.5 ML TUBE PO PRN ×2 (16:20)
[2019-11-11] MEDS ORDERED: D5% in Water 1,000 ML IVC PRN (16:20)
[2019-11-11] MEDS: Insulin LISPRO 300 UNITS/3 ML VIAL SQ SCH (17:42)
[2019-11-11] MEDS ORDERED: Insulin DETEMIR 100 UNIT/ML X5UNITS SQ SCH ×2 (18:00→21:00)
[2019-11-11] MEDS ORDERED: carvediloL 25 MG TABLET PO SCH (19:31)
[2019-11-11 19:33] LABS: Calcium 8.6 mg/dL (8.6-10.3); Potassium 3.6 mEq/L (3.5-5.1); Troponin I 0.03 ng/mL (< 0.04)
[2019-11-11] MEDS ORDERED: Insulin LISPRO 300 UNITS/3 ML VIAL SQ SCH (21:00)
[2019-11-12] MEDS ORDERED: *HR* Enoxaparin 40 MG/0.4 ML SYRINGE SQ SCH (06:00)
[2019-11-12] MEDS: Insulin LISPRO 300 UNITS/3 ML VIAL SQ SCH ×3 (08:52→16:36)
[2019-11-12] MEDS ORDERED: PARoxetine 20 MG TABLET PO SCH ×2 (09:00)
[2019-11-12] MEDS ORDERED: Gabapentin 100 MG CAPSULE PO SCH (09:00)
[2019-11-12] MEDS ORDERED: Nicotine 14 MG PATCH.TD24 TD SCH (09:00)
[2019-11-12] MEDS ORDERED: Sennosides 8.6 MG TABLET PO SCH (09:00)
[2019-11-12] MEDS ORDERED: Cholecalciferol (D-3) 1,000 UNIT (25MCG) TABLET PO SCH (09:00)
[2019-11-12] MEDS ORDERED: Aspirin Enteric Coated 325 MG Tablet PO SCH (09:00)
[2019-11-12] MEDS: Budesonide/Formoterol 160/4.5 1 PUFF INH IH SCH (09:32)
[2019-11-12] MEDS ORDERED: Tiotropium 18 MCG inhalation IH SCH (10:00)
[2019-11-12 10:58] LABS: Calcium 8.8 mg/dL (8.6-10.3); Potassium 3.6 mEq/L (3.5-5.1)
[2019-11-12 14:27] VITALS: BP 99/59
== END 2019-11-12 17:50 | disposition home or self-care (01) ==
LOC: EMEROOARM 05:16 → 3BNU 05:16 → SUATTDRO 08:57 → 3BNU 10:06
PROVIDERS: ADMIT Internal Medicine; ATTEND Student in an Organized Health Care Education/Training Program

== ENCOUNTER 2020-01-09 23:03 | Inpatient (IN) ==
[2020-01-10 00:47] LABS: Basophils % 0.4 %; Eosinophils # 0.1 K/mcL (0.0-0.6); Eosinophils % 1.3 %; Hematocrit 36.3 % (35.3-44.9); Hemoglobin 11.7 g/dL (11.5-15.4); Immature Granulocytes % 0.2 % (0-4); Lymphocytes # 1.9 K/mcL (0.6-4.6); Mean Corpuscular HGB Conc 32.2 g/dL (31.6-35.5); Mean Corpuscular Hemoglobin 27.9 pg (28.0-33.3); Mean Corpuscular Volume 86.6 fL (83.0-100.0); Mean Platelet Volume 9.4 fL (9.4-12.4); Monocytes # 0.4 K/mcL (0.0-1.3); Monocytes % 4.4 %; Neutrophils # 6.6 K/mcL (1.6-8.9); Platelet Count 290 K/mcL (140-400); Red Blood Count 4.19 M/mcL (3.82-4.97); Red Cell Distribution Width 13.3 % (11.5-14.5); Segmented Neutrophils % 72.7 %; White Blood Count 9.1 K/mcL (4.3-11.1)
[2020-01-10 00:49] LABS: INR 0.8; Prothrombin Time 9.6 Seconds (9.4-12.1)
[2020-01-10 00:55] LABS: Alanine Aminotransferase 18 Units/L (7-52); Albumin 3.5 g/dL (3.5-5.7); Albumin/Globulin Ratio 1.3 (1.1-2.2); Alkaline Phosphatase 118 Units/L (34-104); Aspartate Amino Transferase 17 Units/L (13-39); BUN/Creatinine Ratio 13 (6-26); Bilirubin,Total 0.3 mg/dL (0.3-1.0); Blood Urea Nitrogen 12 mg/dL (6-20); Calcium 9.2 mg/dL (8.6-10.3); Carbon Dioxide 26 mEq/L (23-29); Chloride 95 mEq/L (98-107); Globulin 2.8 g/dL (2.4-3.5); Glucose 367 mg/dL (70-105); Osmolality,Calculated 289 (280-300); Potassium 3.8 mEq/L (3.5-5.1); Sodium 132 mEq/L (136-145); Total Protein 6.3 g/dL (6.4-8.9); Troponin I < 0.03 ng/mL (< 0.04); eGFR For African Americans > 60 (> 60); eGFR For Non-African Americans > 60 (> 60)
[2020-01-10 02:09] LABS: Bilirubin,Urine Negative (Negative); Blood,Urine Negative (Negative); Clarity,Urine Clear (Clear); Color,Urine Yellow (Yellow); Glucose,Urine (UA) >=1000 mg/dL (Normal); Ketones,Urine Negative (Negative); Leukocyte Esterase,Urine Negative (Negative); Nitrite,Urine Negative (Negative); PH,Urine 5.5 pH Units (5.0-8.0); Protein,Urine 100 mg/dL (Neg-Trace); Specific Gravity,Urine 1.025 (1.010-1.025); Urobilinogen,Urine Normal (Normal)
[2020-01-10 02:14] LABS: Bacteria,Urine Few per hpf (None-Few); Hyaline Casts,Urine Few per lpf (None Seen); Mucus,Urine Few per lpf (None-Few); RBC,Urine 0-3 per hpf (0-3); Squamous Epithelial Cell,Urine Moderate per hpf (None-Few); WBC,Urine 0-3 per hpf (0-3)
[2020-01-10] MEDS ORDERED: Naloxone 0.4 MG/ML INJ IVP PRN (05:52)
[2020-01-10] MEDS ORDERED: *HR* Promethazine 25 MG/ML VIAL IVP PRN (06:00)
[2020-01-10] MEDS ORDERED: Acetaminophen 325 MG TABLET PO PRN (06:00)
[2020-01-10] MEDS ORDERED: Ipratropium/Albuterol Neb 3 ML IH PRN (07:23)
[2020-01-10] MEDS ORDERED: Perflutren Lipid Microsphere 1.3 ML in 0.9 % Sodium Chloride 8.7 ML IVP PRN (07:49)
[2020-01-10] MEDS: Nicotine 14 MG PATCH.TD24 TD SCH (08:17)
[2020-01-10] MEDS: Gabapentin 100 MG CAPSULE PO SCH (08:17)
[2020-01-10] MEDS: Aspirin Enteric Coated 325 MG Tablet PO SCH (08:18)
[2020-01-10] MEDS: Tiotropium 18 MCG inhalation IH SCH (11:04)
[2020-01-10] MEDS: Budesonide/Formoterol 160/4.5 1 PUFF INH IH SCH ×2 (11:05→19:59)
[2020-01-10] MEDS ORDERED: *HR* Dextrose 50 % in Water (Vial) 50 ML VIAL IVP PRN (19:33)
[2020-01-10] MEDS ORDERED: Dextrose Gel 15 GM/37.5 ML TUBE PO PRN ×2 (19:33)
[2020-01-10] MEDS ORDERED: D5% in Water 1,000 ML IVC PRN (19:33)
[2020-01-10] MEDS: Insulin LISPRO 300 UNITS/3 ML VIAL SQ SCH (20:59)
[2020-01-10 22:15] LABS: Estimated Average Glucose 220 mg/dl
[2020-01-11] MEDS ORDERED: Insulin DETEMIR 100 UNIT/ML X5UNITS SQ ONE (03:07)
[2020-01-11 04:18] LABS: Hematocrit 32.8 % (35.3-44.9); Hemoglobin 11.1 g/dL (11.5-15.4); Mean Corpuscular HGB Conc 33.8 g/dL (31.6-35.5); Mean Corpuscular Volume 85.6 fL (83.0-100.0); Mean Platelet Volume 8.9 fL (9.4-12.4); Platelet Count 257 K/mcL (140-400); Red Blood Count 3.83 M/mcL (3.82-4.97); Red Cell Distribution Width 13.2 % (11.5-14.5); White Blood Count 8.7 K/mcL (4.3-11.1)
[2020-01-11 05:45] LABS: BUN/Creatinine Ratio 14 (6-26); Blood Urea Nitrogen 15 mg/dL (6-20); Calcium 8.6 mg/dL (8.6-10.3); Carbon Dioxide 28 mEq/L (23-29); Chloride 97 mEq/L (98-107); Chol/HDL Ratio 7.1 (0-4.9); Cholesterol 241 mg/dL (< 200); Glucose 308 mg/dL (70-105); HDL Cholesterol 34 mg/dL (40-59); LDL Cholesterol,Calculated 151 mg/dL (< 100); Magnesium 1.7 mg/dL (1.6-2.6); Osmolality,Calculated 290 (280-300); Potassium 3.6 mEq/L (3.5-5.1); Sodium 134 mEq/L (136-145); Triglycerides 278 mg/dL (< 150); eGFR For African Americans > 60 (> 60); eGFR For Non-African Americans 54 (> 60)
[2020-01-11] MEDS: Budesonide/Formoterol 160/4.5 1 PUFF INH IH SCH ×2 (07:21→21:48)
[2020-01-11] MEDS: Tiotropium 18 MCG inhalation IH SCH (07:22)
[2020-01-11] MEDS: Insulin LISPRO 300 UNITS/3 ML VIAL SQ SCH ×4 (08:00→20:25)
[2020-01-11] MEDS: Gabapentin 100 MG CAPSULE PO SCH (08:00)
[2020-01-11] MEDS: Aspirin Enteric Coated 325 MG Tablet PO SCH (08:00)
[2020-01-11] MEDS: Nicotine 14 MG PATCH.TD24 TD SCH (08:01)
[2020-01-11] MEDS ORDERED: Isovue-370 500 ML BOTTLE IVP ONE (12:04)
[2020-01-11] MEDS ORDERED: Perflutren Lipid Microsphere 1.3 ML in 0.9 % Sodium Chloride 8.7 ML IVP PRN (12:24)
[2020-01-11] MEDS ORDERED: Metoprolol XL (24 HR) Succ 25 MG TAB.ER.24H PO SCH (15:30)
[2020-01-12 04:57] LABS: Basophils % 0.4 %; Eosinophils # 0.2 K/mcL (0.0-0.6); Eosinophils % 1.8 %; Hematocrit 35.7 % (35.3-44.9); Hemoglobin 11.8 g/dL (11.5-15.4); Immature Granulocytes % 0.3 % (0-4); Lymphocytes # 3.2 K/mcL (0.6-4.6); Lymphocytes % 35.2 %; Mean Corpuscular HGB Conc 33.1 g/dL (31.6-35.5); Mean Corpuscular Hemoglobin 28.3 pg (28.0-33.3); Mean Corpuscular Volume 85.6 fL (83.0-100.0); Monocytes # 0.5 K/mcL (0.0-1.3); Monocytes % 5.5 %; Neutrophils # 5.1 K/mcL (1.6-8.9); Platelet Count 271 K/mcL (140-400); Red Blood Count 4.17 M/mcL (3.82-4.97); Red Cell Distribution Width 13.3 % (11.5-14.5); Segmented Neutrophils % 56.8 %; White Blood Count 9.1 K/mcL (4.3-11.1)
[2020-01-12 05:01] LABS: INR 0.9; Prothrombin Time 10.1 Seconds (9.4-12.1)
[2020-01-12 05:16] LABS: BUN/Creatinine Ratio 20 (6-26); Blood Urea Nitrogen 20 mg/dL (6-20); Calcium 9.3 mg/dL (8.6-10.3); Carbon Dioxide 26 mEq/L (23-29); Chloride 101 mEq/L (98-107); Glucose 186 mg/dL (70-105); Magnesium 1.9 mg/dL (1.6-2.6); Osmolality,Calculated 291 (280-300); Potassium 3.8 mEq/L (3.5-5.1); Sodium 137 mEq/L (136-145); eGFR For African Americans > 60 (> 60); eGFR For Non-African Americans 58 (> 60)
[2020-01-12] MEDS: Budesonide/Formoterol 160/4.5 1 PUFF INH IH SCH ×2 (07:51→20:10)
[2020-01-12] MEDS: Tiotropium 18 MCG inhalation IH SCH ×2 (07:52→10:18)
[2020-01-12] MEDS: carvediloL 6.25 MG TABLET PO SCH ×2 (08:21→17:10)
[2020-01-12] MEDS: Gabapentin 100 MG CAPSULE PO SCH (08:21)
[2020-01-12] MEDS: Furosemide 20 MG TABLET PO SCH (08:21)
[2020-01-12] MEDS: PARoxetine 20 MG TABLET PO SCH (08:21)
[2020-01-12] MEDS: Insulin LISPRO 300 UNITS/3 ML VIAL SQ SCH ×4 (08:22→22:16)
[2020-01-12] MEDS: Cyanocobalamin (B-12) 1,000 MCG TABLET PO SCH (08:22)
[2020-01-12] MEDS: Aspirin Enteric Coated 325 MG Tablet PO SCH (08:22)
[2020-01-12] MEDS: Insulin DETEMIR 100 UNIT/ML X5UNITS SQ SCH (08:22)
[2020-01-12] MEDS: Cholecalciferol (D-3) 1,000 UNIT (25MCG) TABLET PO SCH (08:22)
[2020-01-12] MEDS: Spironolactone 25 MG TABLET PO SCH (08:22)
[2020-01-12] MEDS: Nicotine 14 MG PATCH.TD24 TD SCH (08:22)
[2020-01-12] MEDS: 0.9 % Sodium Chloride 1,000 ML IVC SCH ×2 (11:13→21:26)
[2020-01-13 04:46] LABS: Basophils % 0.4 %; Eosinophils # 0.1 K/mcL (0.0-0.6); Eosinophils % 1.3 %; Hematocrit 38.2 % (35.3-44.9); Hemoglobin 12.4 g/dL (11.5-15.4); Immature Granulocytes % 0.2 % (0-4); Lymphocytes # 3.5 K/mcL (0.6-4.6); Lymphocytes % 34.2 %; Mean Corpuscular HGB Conc 32.5 g/dL (31.6-35.5); Mean Corpuscular Hemoglobin 28.2 pg (28.0-33.3); Mean Corpuscular Volume 86.8 fL (83.0-100.0); Mean Platelet Volume 9.2 fL (9.4-12.4); Monocytes # 0.5 K/mcL (0.0-1.3); Monocytes % 4.8 %; Platelet Count 298 K/mcL (140-400); Red Cell Distribution Width 13.4 % (11.5-14.5); Segmented Neutrophils % 59.1 %; White Blood Count 10.2 K/mcL (4.3-11.1)
[2020-01-13 05:05] LABS: BUN/Creatinine Ratio 28 (6-26); Blood Urea Nitrogen 25 mg/dL (6-20); Calcium 8.8 mg/dL (8.6-10.3); Carbon Dioxide 22 mEq/L (23-29); Chloride 104 mEq/L (98-107); Glucose 172 mg/dL (70-105); Magnesium 1.7 mg/dL (1.6-2.6); Osmolality,Calculated 290 (280-300); Potassium 3.8 mEq/L (3.5-5.1); Sodium 136 mEq/L (136-145); eGFR For African Americans > 60 (> 60); eGFR For Non-African Americans > 60 (> 60)
[2020-01-13] MEDS: Cyanocobalamin (B-12) 1,000 MCG TABLET PO SCH (08:10)
[2020-01-13] MEDS: Aspirin Enteric Coated 325 MG Tablet PO SCH (08:10)
[2020-01-13] MEDS: Furosemide 20 MG TABLET PO SCH (08:10)
[2020-01-13] MEDS: PARoxetine 20 MG TABLET PO SCH (08:11)
[2020-01-13] MEDS: Cholecalciferol (D-3) 1,000 UNIT (25MCG) TABLET PO SCH (08:11)
[2020-01-13] MEDS: Gabapentin 100 MG CAPSULE PO SCH (08:11)
[2020-01-13] MEDS: Spironolactone 25 MG TABLET PO SCH (08:11)
[2020-01-13] MEDS: carvediloL 6.25 MG TABLET PO SCH ×2 (08:11→17:27)
[2020-01-13] MEDS: Nicotine 14 MG PATCH.TD24 TD SCH (08:14)
[2020-01-13] MEDS: Insulin LISPRO 300 UNITS/3 ML VIAL SQ SCH ×4 (08:15→23:06)
[2020-01-13] MEDS: 0.9 % Sodium Chloride 1,000 ML IVC SCH (08:16)
[2020-01-13] MEDS: Insulin DETEMIR 100 UNIT/ML X5UNITS SQ SCH (08:17)
[2020-01-13] MEDS: amLODIPine 5 MG TABLET PO SCH (09:19)
[2020-01-13] MEDS: Budesonide/Formoterol 160/4.5 1 PUFF INH IH SCH ×2 (10:08→20:22)
[2020-01-13] MEDS: Tiotropium 18 MCG inhalation IH SCH (10:22)
[2020-01-13] MEDS: Apixaban 5 MG TABLET PO SCH (23:06)
[2020-01-14 02:03] LABS: BUN/Creatinine Ratio 31 (6-26); Blood Urea Nitrogen 27 mg/dL (6-20); Calcium 8.8 mg/dL (8.6-10.3); Carbon Dioxide 22 mEq/L (23-29); Chloride 102 mEq/L (98-107); Glucose 236 mg/dL (70-105); Magnesium 1.8 mg/dL (1.6-2.6); Osmolality,Calculated 291 (280-300); Potassium 4.3 mEq/L (3.5-5.1); Sodium 134 mEq/L (136-145); eGFR For African Americans > 60 (> 60); eGFR For Non-African Americans > 60 (> 60)
[2020-01-14] MEDS: Tiotropium 18 MCG inhalation IH SCH (07:52)
[2020-01-14] MEDS: Budesonide/Formoterol 160/4.5 1 PUFF INH IH SCH (07:52)
[2020-01-14] MEDS: Insulin LISPRO 300 UNITS/3 ML VIAL SQ SCH ×2 (07:58→13:03)
[2020-01-14] MEDS: Nicotine 14 MG PATCH.TD24 TD SCH (08:54)
[2020-01-14] MEDS: Aspirin Enteric Coated 325 MG Tablet PO SCH (08:54)
[2020-01-14] MEDS: carvediloL 6.25 MG TABLET PO SCH (08:55)
[2020-01-14] MEDS: Apixaban 5 MG TABLET PO SCH (08:55)
[2020-01-14] MEDS: Furosemide 20 MG TABLET PO SCH (08:55)
[2020-01-14] MEDS: PARoxetine 20 MG TABLET PO SCH (08:56)
[2020-01-14] MEDS: Cholecalciferol (D-3) 1,000 UNIT (25MCG) TABLET PO SCH (08:56)
[2020-01-14] MEDS: Gabapentin 100 MG CAPSULE PO SCH (08:56)
[2020-01-14] MEDS: amLODIPine 5 MG TABLET PO SCH (08:56)
[2020-01-14] MEDS: Spironolactone 25 MG TABLET PO SCH (08:56)
[2020-01-14] MEDS: Cyanocobalamin (B-12) 1,000 MCG TABLET PO SCH (08:56)
[2020-01-14] MEDS ORDERED: Apixaban 5 MG TABLET PO SCH (09:00)
[2020-01-14] MEDS: Insulin DETEMIR 100 UNIT/ML X5UNITS SQ SCH (09:02)
[2020-01-14 11:57] VITALS: BP 101/63
== END 2020-01-14 15:04 | disposition home or self-care (01) | DRG 65 ==
LOC: EMEROOARM 23:03 → 3ANU 23:03 → SUATTDRO 01-10 04:55 → 3ANU 01-10 05:18 → SUATTDRO 01-11 16:53
PROVIDERS: ADMIT Student in an Organized Health Care Education/Training Program; ATTEND Internal Medicine

== ENCOUNTER 2020-10-31 15:15 | Inpatient (IN) ==
[2020-10-31] MEDS ORDERED: 0.9 % Sodium Chloride 1,000 ML IVC ONE ×2 (16:25→19:01)
[2020-10-31 16:42] LABS: Bilirubin,Urine Negative (Negative); Blood,Urine Small (Negative); Clarity,Urine Turbid (Clear); Color,Urine Light-Yellow (Yellow); Glucose,Urine (UA) 300 mg/dL (Normal); Ketones,Urine Negative (Negative); Leukocyte Esterase,Urine Large (Negative); Mucus,Urine Few per lpf (None-Few); Nitrite,Urine Negative (Negative); Protein,Urine 100 mg/dL (Neg-Trace); RBC,Urine 0-3 per hpf (0-3); Specific Gravity,Urine 1.013 (1.010-1.025); Squamous Epithelial Cell,Urine Few per hpf (None-Few); Urobilinogen,Urine Normal (Normal); WBC,Urine 50-100 per hpf (0-3)
[2020-10-31 16:57] LABS: Amphetamine Screen,Urine Negative ng/mL (Cutoff=1000); Barbiturate Screen,Urine Negative ng/mL (Cutoff=200); Benzodiazepines Screen,Urine Negative ng/mL (Cutoff=200); Cannabinoid Screen,Urine Negative ng/mL (Cutoff = 50); Cocaine Screen,Urine Negative ng/mL (Cutoff= 300); Opiate Screen,Urine Negative ng/mL (Cutoff=300); Phencyclidine Screen,Urine Negative ng/mL (Cutoff=25)
[2020-10-31 17:41] LABS: Basophils % 0.2 %; Eosinophils % 0.4 %; Hematocrit 32.1 % (35.3-44.9); Hemoglobin 11.1 g/dL (11.5-15.4); Immature Granulocytes % 0.3 % (0-4); Lymphocytes # 1.6 K/mcL (0.6-4.6); Lymphocytes % 14.7 %; Mean Corpuscular HGB Conc 34.6 g/dL (31.6-35.5); Mean Corpuscular Hemoglobin 28.4 pg (28.0-33.3); Mean Corpuscular Volume 82.1 fL (83.0-100.0); Mean Platelet Volume 9.1 fL (9.4-12.4); Monocytes # 0.5 K/mcL (0.0-1.3); Monocytes % 5.1 %; Neutrophils # 8.5 K/mcL (1.6-8.9); Platelet Count 276 K/mcL (140-400); Red Blood Count 3.91 M/mcL (3.82-4.97); Red Cell Distribution Width 11.9 % (11.5-14.5); Segmented Neutrophils % 79.3 %; White Blood Count 10.6 K/mcL (4.3-11.1)
[2020-10-31 18:10] LABS: BUN/Creatinine Ratio 7 (6-26); Blood Urea Nitrogen 23 mg/dL (6-20); Calcium 8.3 mg/dL (8.6-10.3); Carbon Dioxide 26 mEq/L (23-29); Chloride 92 mEq/L (98-107); Glucose 281 mg/dL (70-105); Osmolality,Calculated 280 (280-300); Potassium 2.9 mEq/L (3.5-5.1); Sodium 128 mEq/L (136-145); Troponin I < 0.03 ng/mL (< 0.04); eGFR For African Americans 19 (> 60); eGFR For Non-African Americans 15 (> 60)
[2020-10-31] MEDS ORDERED: cefTRIAXone 1,000 MG in 0.9 % Sodium Chloride Mini Bag 100 ML IVPB ONE (19:39)
[2020-10-31] MEDS ORDERED: Potassium Chloride Elixir 20 MEQ/15 ML UDC PO ONE (19:40)
[2020-10-31] MEDS ORDERED: Potassium Chloride 40 MEQ, Lidocaine 1% 2 ML in 0.9 % Sodium Chloride 500 ML IVPB ONE (19:40)
[2020-10-31 22:36] LABS: INR 1.5; Prothrombin Time 16.7 Seconds (9.4-12.1)
[2020-10-31 22:49] LABS: Albumin 3.6 g/dL (3.5-5.7); Albumin/Globulin Ratio 1.3 (1.1-2.2); Bilirubin,Indirect 0.2 mg/dL (0.0-1.0); Bilirubin,Total 0.2 mg/dL (0.3-1.0); Globulin 2.7 g/dL (2.4-3.5); Total Protein 6.3 g/dL (6.4-8.9)
[2020-10-31] MEDS ORDERED: Pantoprazole 40 MG VIAL IVP ONE (23:03)
[2020-10-31] MEDS ORDERED: Ondansetron 4 MG/2 ML VIAL IVP ONE (23:03)
[2020-10-31] MEDS ORDERED: D5% in Water 1,000 ML IVC PRN (23:08)
[2020-10-31] MEDS ORDERED: *HR* Dextrose 50 % in Water (Vial) 50 ML VIAL IVP PRN (23:08)
[2020-10-31] MEDS ORDERED: Dextrose Gel 15 GM/37.5 ML TUBE PO PRN ×2 (23:08)
[2020-10-31] MEDS ORDERED: 0.9 % Sodium Chloride 1,000 ML ONE (23:40)
[2020-10-31] MEDS ORDERED: Ipratropium/Albuterol Neb 3 ML IH PRN (23:58)
[2020-11-01] MEDS: 0.9 % Sodium Chloride 1,000 ML IVC SCH ×2 (00:05→09:18)
[2020-11-01] MEDS: Insulin LISPRO 300 UNITS/3 ML VIAL SUBQ SCH ×4 (00:06→16:58)
[2020-11-01] MEDS ORDERED: levETIRAcetam 1,000 MG in 0.9 % Sodium Chloride 100 ML IVPB ONE (01:38)
[2020-11-01 02:30] LABS: Adenovirus Not Detected (Not Detect); Coronavirus 229E Not Detected (Not Detect); Coronavirus HKU1 Not Detected (Not Detect); Coronavirus NL63 Not Detected (Not Detect); Coronavirus OC43 Not Detected (Not Detect)
[2020-11-01 02:31] LABS: Bordetella Pertussis Not Detected (Not Detect); Chlamydophila pneumoniae Not Detected (Not Detect); Human Metapneumovirus Not Detected (Not Detect); Human Rhinovirus/Enterovirus Not Detected (Not Detect); Influenza A Subtype 2009 H1 Not Detected (Not Detect); Influenza B Not Detected (Not Detect); Mycoplasma pneumoniae Not Detected (Not Detect); Parainfluenza Virus 1 Not Detected (Not Detect); Parainfluenza Virus 2 Not Detected (Not Detect); Parainfluenza Virus 3 Not Detected (Not Detect); Parainfluenza Virus 4 Not Detected (Not Detect); Respiratory Syncytial Virus Not Detected (Not Detect); SARS-CoV-2 Not Detected (Not Detect)
[2020-11-01 02:35] LABS: Sodium, Urine 87.5 mEq/L
[2020-11-01 02:39] LABS: Calcium 7.6 mg/dL (8.6-10.3); Potassium 3.6 mEq/L (3.5-5.1)
[2020-11-01] MEDS ORDERED: *HR* LORazepam 2 MG/ML VIAL IVP PRN ×2 (10:42→14:35)
[2020-11-01] MEDS ORDERED: levETIRAcetam 250 MG in 0.9 % Sodium Chloride 100 ML IVPB SCH (11:00)
[2020-11-01] MEDS ORDERED: Nicotine 14 MG PATCH.TD24 TD PRN ×2 (14:11→14:35)
[2020-11-01] MEDS ORDERED: Ipratropium/Albuterol Neb 3 ML IH PRN ×3 (14:11→14:35)
[2020-11-01] MEDS ORDERED: D5% in Water 1,000 ML IVC PRN (14:35)
[2020-11-01] MEDS ORDERED: Dextrose Gel 15 GM/37.5 ML TUBE PO PRN ×2 (14:35)
[2020-11-01] MEDS ORDERED: *HR* Dextrose 50 % in Water (Vial) 50 ML VIAL IVP PRN (14:35)
[2020-11-01] MEDS: carvediloL 25 MG TABLET PO SCH (16:58)
[2020-11-01] MEDS ORDERED: carvediloL 25 MG TABLET PO SCH (17:00)
[2020-11-01 17:37] LABS: Estimated Average Glucose 200 mg/dl; Hemoglobin A1C 8.6 %
[2020-11-01] MEDS ORDERED: cefTRIAXone 1,000 MG in Water for inj. (sterile) 10 ML IVP SCH (18:00)
[2020-11-01] MEDS ORDERED: CefTRIAXone 1,000 MG VIAL IM SCH (18:00)
[2020-11-01] MEDS: Apixaban 5 MG TABLET PO SCH (20:55)
[2020-11-01] MEDS: levETIRAcetam 250 MG in 0.9 % Sodium Chloride 100 ML IVPB SCH (20:56)
[2020-11-01] MEDS ORDERED: NON-FORMULARY MEDICATION 1 EACH EACH (Atorvastatin Calcium [Lipitor] 80 MG Tablet) PO SCH (21:00)
[2020-11-01] MEDS ORDERED: Insulin LISPRO 300 UNITS/3 ML VIAL SUBQ SCH (21:00)
[2020-11-01] MEDS ORDERED: Insulin DETEMIR 100 UNIT/ML X5UNITS SUBQ SCH ×2 (21:00)
[2020-11-01] MEDS ORDERED: Gabapentin 100 MG CAPSULE PO SCH ×2 (21:00)
[2020-11-01] MEDS ORDERED: Apixaban 5 MG TABLET PO SCH (21:00)
[2020-11-02 00:27] LABS: Adenovirus F 40/41 PCR Not detected (Not detect); Astrovirus PCR Not detected (Not detect); C.difficile Toxin A/B Gene PCR Not detected (Not detect); Campylobacter by PCR Not detected (Not detect); Cryptosporidium by PCR Not detected (Not detect); Cyclospora cayetanensis PCR Not detected (Not detect); E. coli O157 by PCR Not detected (Not detect); Entamoeba histolytica PCR Not detected (Not detect); Enteroaggregative E.coli(EAEC) Not detected (Not detect); Enteropathogenic E.coli(EPEC) Not detected (Not detect); Enterotoxigenic E.coli (ETEC) Not detected (Not detect); Giardia lamblia PCR Not detected (Not detect); Norovirus GI/GII PCR Not detected (Not detect); Plesiomonas shigelloides PCR Not detected (Not detect); Rotavirus A PCR Not detected (Not detect); Salmonella PCR Not detected (Not detect); Sapovirus PCR Not detected (Not detect); Shig/EnteroinvasiveE coli EIEC Not detected (Not detect); Shigalike tox-prod E coli STEC Not detected (Not detect); Vibrio PCR Not detected (Not detect); Vibrio cholerae PCR Not detected (Not detect); Yersinia enterocolitica PCR Not detected (Not detect)
[2020-11-02] MEDS: 0.9 % Sodium Chloride 1,000 ML IVC SCH ×2 (02:38→02:39)
[2020-11-02] MEDS ORDERED: Tiotropium 10 INH DOSE IH ONE (07:18)
[2020-11-02 07:44] LABS: Hematocrit 36.1 % (35.3-44.9); Hemoglobin 12.1 g/dL (11.5-15.4); Mean Corpuscular HGB Conc 33.5 g/dL (31.6-35.5); Mean Corpuscular Hemoglobin 28.2 pg (28.0-33.3); Mean Corpuscular Volume 84.1 fL (83.0-100.0); Mean Platelet Volume 9.4 fL (9.4-12.4); Platelet Count 319 K/mcL (140-400); Red Blood Count 4.29 M/mcL (3.82-4.97); Red Cell Distribution Width 12.3 % (11.5-14.5); White Blood Count 10.7 K/mcL (4.3-11.1)
[2020-11-02 08:06] LABS: Calcium 8.6 mg/dL (8.6-10.3); Potassium 3.1 mEq/L (3.5-5.1)
[2020-11-02] MEDS: Insulin LISPRO 300 UNITS/3 ML VIAL SUBQ SCH ×2 (08:27→11:19)
[2020-11-02] MEDS: carvediloL 25 MG TABLET PO SCH (08:27)
[2020-11-02] MEDS: Apixaban 5 MG TABLET PO SCH (08:27)
[2020-11-02] MEDS: levETIRAcetam 250 MG in 0.9 % Sodium Chloride 100 ML IVPB SCH (08:28)
[2020-11-02] MEDS ORDERED: PAROXETINE HCL 40 MG PO SCH (09:00)
[2020-11-02] MEDS ORDERED: PARoxetine 20 MG TABLET PO SCH (09:00)
[2020-11-02] MEDS ORDERED: amLODIPine 5 MG TABLET PO SCH ×2 (09:00)
[2020-11-02 09:08] LABS: Thyroid Stimulating Hormone 0.226 mcIU/mL (0.340-5.600)
[2020-11-02 09:18] LABS: Folate 4.7 ng/mL (3.0-16.0)
[2020-11-02] MEDS ORDERED: TIOTROPIUM 18 MCG IH SCH (10:00)
[2020-11-02] MEDS ORDERED: Tiotropium 10 INH DOSE IH SCH (10:00)
[2020-11-02 11:20] VITALS: BP 130/63; PULSE 69; TEMP 97.5; O2SAT 93
== END 2020-11-02 13:14 | disposition home or self-care (01) | DRG 100 ==
LOC: 2NNU 15:15 → EMEROOARM 15:15 → SUATTDRO 20:37 → 2NNU 21:05 → 2NENU 11-01 15:58 → SUATTDRO 11-01 18:02
PROVIDERS: ADMIT Internal Medicine; ATTEND Internal Medicine

== ENCOUNTER 2020-12-22 10:41 | Observation (INO) ==
[2020-12-22 12:53] LABS: Basophils % 0.3 %; Eosinophils # 0.1 K/mcL (0.0-0.6); Eosinophils % 0.8 %; Hematocrit 35.6 % (35.3-44.9); Hemoglobin 12.4 g/dL (11.5-15.4); Immature Granulocytes % 0.3 % (0-4); Lymphocytes # 2.1 K/mcL (0.6-4.6); Lymphocytes % 15.4 %; Mean Corpuscular HGB Conc 34.8 g/dL (31.6-35.5); Mean Corpuscular Hemoglobin 28.2 pg (28.0-33.3); Mean Corpuscular Volume 80.9 fL (83.0-100.0); Mean Platelet Volume 9.5 fL (9.4-12.4); Monocytes # 0.7 K/mcL (0.0-1.3); Monocytes % 4.9 %; Neutrophils # 10.5 K/mcL (1.6-8.9); Platelet Count 279 K/mcL (140-400); Red Cell Distribution Width 12.2 % (11.5-14.5); Segmented Neutrophils % 78.3 %; White Blood Count 13.4 K/mcL (4.3-11.1)
[2020-12-22 13:03] LABS: Influenza A PCR Negative (Negative); Influenza B PCR Negative (Negative); Resp. Syncytial Virus PCR Negative (Negative)
[2020-12-22] MEDS ORDERED: 0.9 % Sodium Chloride 1,000 ML IVC ONE (13:03)
[2020-12-22] MEDS ORDERED: Isovue-370 500 ML BOTTLE IVP ONE ×2 (13:04→16:59)
[2020-12-22 13:15] LABS: BUN/Creatinine Ratio 6 (6-26); Blood Urea Nitrogen 7 mg/dL (6-20); Calcium 9.2 mg/dL (8.6-10.3); Carbon Dioxide 30 mEq/L (23-29); Chloride 88 mEq/L (98-107); Glucose 247 mg/dL (70-105); Osmolality,Calculated 276 (280-300); Potassium 2.9 mEq/L (3.5-5.1); Sodium 130 mEq/L (136-145); eGFR For African Americans > 60 (> 60); eGFR For Non-African Americans 51 (> 60)
[2020-12-22 13:16] LABS: Alanine Aminotransferase 24 Units/L (7-52); Albumin 3.8 g/dL (3.5-5.7); Albumin/Globulin Ratio 1.2 (1.1-2.2); Alkaline Phosphatase 185 Units/L (34-104); Aspartate Amino Transferase 19 Units/L (13-39); Bilirubin,Direct 0.1 mg/dL (0.0-0.2); Bilirubin,Indirect 0.5 mg/dL (0.0-1.0); Bilirubin,Total 0.6 mg/dL (0.3-1.0); Globulin 3.1 g/dL (2.4-3.5); Magnesium 1.4 mg/dL (1.6-2.6); Total Protein 6.9 g/dL (6.4-8.9)
[2020-12-22 13:23] LABS: SARS-CoV-2 by PCR (In House) Negative (Negative)
[2020-12-22 13:27] LABS: Bilirubin,Urine Negative (Negative); Blood,Urine Trace (Negative); Clarity,Urine Turbid (Clear); Color,Urine Yellow (Yellow); Glucose,Urine (UA) 70 mg/dL (Normal); Ketones,Urine Negative (Negative); Leukocyte Esterase,Urine Trace (Negative); Nitrite,Urine Negative (Negative); Protein,Urine >=600 mg/dL (Neg-Trace); Specific Gravity,Urine 1.023 (1.010-1.025); Urobilinogen,Urine Normal (Normal)
[2020-12-22 13:30] LABS: Troponin I < 0.03 ng/mL (< 0.04)
[2020-12-22] MEDS ORDERED: Potassium Chloride Elixir 20 MEQ/15 ML UDC PO ONE (13:39)
[2020-12-22 13:41] LABS: Squamous Epithelial Cell,Urine Few per hpf (None-Few)
[2020-12-22 13:42] LABS: WBC,Urine 0-3 per hpf (0-3)
[2020-12-22 13:43] LABS: Amorphous Sediment,Urine Few per hpf (None-Few); Bacteria,Urine Few per hpf (None-Few)
[2020-12-22 13:44] LABS: RBC,Urine 50-100 per hpf (0-3)
[2020-12-22] MEDS ORDERED: Melatonin 3 MG TABLET PO PRN (17:57)
[2020-12-22] MEDS ORDERED: Naloxone 0.4 MG/ML INJ IVP PRN (17:57)
[2020-12-22] MEDS ORDERED: Ondansetron ODT 4 MG TAB.RAPDIS SL PRN (17:57)
[2020-12-22] MEDS ORDERED: 0.9 % Sodium Chloride w KCl 20 MEQ/1,000 ML MLS IVC SCH (18:00)
[2020-12-22 18:42] LABS: Troponin I < 0.03 ng/mL (< 0.04)
[2020-12-23 01:38] LABS: Basophils # 0.1 K/mcL (0.0-0.2); Basophils % 0.5 %; Eosinophils # 0.1 K/mcL (0.0-0.6); Eosinophils % 1.1 %; Hematocrit 32.6 % (35.3-44.9); Hemoglobin 11.2 g/dL (11.5-15.4); Immature Granulocytes % 0.3 % (0-4); Lymphocytes # 2.8 K/mcL (0.6-4.6); Lymphocytes % 27.7 %; Mean Corpuscular HGB Conc 34.4 g/dL (31.6-35.5); Mean Corpuscular Volume 81.5 fL (83.0-100.0); Mean Platelet Volume 9.5 fL (9.4-12.4); Monocytes # 0.6 K/mcL (0.0-1.3); Monocytes % 5.6 %; Neutrophils # 6.4 K/mcL (1.6-8.9); Platelet Count 231 K/mcL (140-400); Red Cell Distribution Width 12.4 % (11.5-14.5); Segmented Neutrophils % 64.8 %
[2020-12-23 01:59] LABS: BUN/Creatinine Ratio 7 (6-26); Blood Urea Nitrogen 6 mg/dL (6-20); Calcium 8.5 mg/dL (8.6-10.3); Carbon Dioxide 26 mEq/L (23-29); Chloride 95 mEq/L (98-107); Glucose 186 mg/dL (70-105); Osmolality,Calculated 270 (280-300); Phosphorous 2.4 mg/dL (2.7-4.5); Potassium 3.9 mEq/L (3.5-5.1); Sodium 129 mEq/L (136-145); eGFR For African Americans > 60 (> 60); eGFR For Non-African Americans > 60 (> 60)
[2020-12-23] MEDS ORDERED: D5% in Water 1,000 ML IVC PRN (16:12)
[2020-12-23] MEDS ORDERED: Dextrose Gel 15 GM/37.5 ML TUBE PO PRN ×2 (16:12)
[2020-12-23] MEDS ORDERED: *HR* Dextrose 50 % in Water (Vial) 50 ML VIAL IVP PRN (16:12)
[2020-12-23] MEDS: Insulin LISPRO 300 UNITS/3 ML VIAL SUBQ SCH (17:09)
[2020-12-23] MEDS: levETIRAcetam 250 MG TABLET PO SCH (17:09)
[2020-12-23] MEDS ORDERED: Gabapentin 100 MG CAPSULE PO SCH (21:00)
[2020-12-23] MEDS: Apixaban 5 MG TABLET PO SCH (21:22)
[2020-12-24 02:24] LABS: Basophils # 0.1 K/mcL (0.0-0.2); Basophils % 0.5 %; Eosinophils # 0.2 K/mcL (0.0-0.6); Eosinophils % 1.6 %; Hematocrit 34.6 % (35.3-44.9); Hemoglobin 12.3 g/dL (11.5-15.4); Immature Granulocytes % 0.1 % (0-4); Lymphocytes # 3.4 K/mcL (0.6-4.6); Lymphocytes % 35.5 %; Mean Corpuscular HGB Conc 35.5 g/dL (31.6-35.5); Mean Corpuscular Hemoglobin 28.7 pg (28.0-33.3); Mean Corpuscular Volume 80.8 fL (83.0-100.0); Mean Platelet Volume 9.5 fL (9.4-12.4); Monocytes # 0.6 K/mcL (0.0-1.3); Monocytes % 6.1 %; Neutrophils # 5.4 K/mcL (1.6-8.9); Platelet Count 284 K/mcL (140-400); Red Blood Count 4.28 M/mcL (3.82-4.97); Red Cell Distribution Width 12.3 % (11.5-14.5); Segmented Neutrophils % 56.2 %; White Blood Count 9.6 K/mcL (4.3-11.1)
[2020-12-24 02:48] LABS: BUN/Creatinine Ratio 5 (6-26); Blood Urea Nitrogen 5 mg/dL (6-20); Calcium 9.1 mg/dL (8.6-10.3); Carbon Dioxide 28 mEq/L (23-29); Chloride 95 mEq/L (98-107); Glucose 162 mg/dL (70-105); Magnesium 1.6 mg/dL (1.6-2.6); Osmolality,Calculated 277 (280-300); Phosphorous 3.1 mg/dL (2.7-4.5); Potassium 3.3 mEq/L (3.5-5.1); Sodium 133 mEq/L (136-145); eGFR For African Americans > 60 (> 60); eGFR For Non-African Americans > 60 (> 60)
[2020-12-24] MEDS: levETIRAcetam 250 MG TABLET PO SCH (05:42)
[2020-12-24 07:59] VITALS: TEMP 98.1
[2020-12-24] MEDS ORDERED: *HR* Metformin 500 MG TABLET PO SCH (09:00)
[2020-12-24] MEDS ORDERED: PARoxetine 20 MG TABLET PO SCH (09:00)
[2020-12-24] MEDS ORDERED: Aspirin Enteric Coated 325 MG Tablet PO SCH (09:00)
[2020-12-24] MEDS: Apixaban 5 MG TABLET PO SCH (09:38)
[2020-12-24] MEDS: Insulin LISPRO 300 UNITS/3 ML VIAL SUBQ SCH ×2 (09:39→11:15)
[2020-12-24] MEDS ORDERED: Potassium Chloride Elixir 20 MEQ/15 ML UDC PO ONE (10:30)
[2020-12-24 10:57] VITALS: PULSE 82; O2SAT 96
[2020-12-24 11:15] VITALS: BP 130/79
[2020-12-24 12:07] LABS: Estimated Average Glucose 200 mg/dl; Hemoglobin A1C 8.6 %
== END 2020-12-24 15:34 | disposition home health service (06) ==
LOC: 3ANU 10:41 → EMEROOARM 10:41 → SUATTDRO 21:34 → 3ANU 22:00
PROVIDERS: ADMIT Student in an Organized Health Care Education/Training Program; ATTEND Internal Medicine

== ENCOUNTER 2021-10-20 16:22 | Observation (INO) ==
[2021-10-20] MEDS ORDERED: 0.9 % Sodium Chloride 1,000 ML IVC ONE (18:19)
[2021-10-20 18:43] LABS: Basophils % 0.4 %; Eosinophils # 0.1 K/mcL (0.0-0.6); Eosinophils % 1.2 %; Hematocrit 34.6 % (35.3-44.9); Hemoglobin 10.9 g/dL (11.5-15.4); Immature Granulocytes % 0.3 % (0-4); Lymphocytes # 2.6 K/mcL (0.6-4.6); Lymphocytes % 25.3 %; Mean Corpuscular HGB Conc 31.5 g/dL (31.6-35.5); Mean Corpuscular Hemoglobin 24.2 pg (28.0-33.3); Mean Corpuscular Volume 76.9 fL (83.0-100.0); Mean Platelet Volume 8.8 fL (9.4-12.4); Monocytes # 0.5 K/mcL (0.0-1.3); Monocytes % 5.3 %; Neutrophils # 6.8 K/mcL (1.6-8.9); Platelet Count 399 K/mcL (140-400); Red Cell Distribution Width 15.1 % (11.5-14.5); Segmented Neutrophils % 67.5 %; White Blood Count 10.1 K/mcL (4.3-11.1)
[2021-10-20 19:03] LABS: BUN/Creatinine Ratio 10 (6-26); Blood Urea Nitrogen 9 mg/dL (8-23); Calcium 9.9 mg/dL (8.6-10.3); Carbon Dioxide 29 mEq/L (23-29); Chloride 94 mEq/L (98-107); Glucose 232 mg/dL (70-105); Osmolality,Calculated 284 (280-300); Potassium 3.4 mEq/L (3.5-5.1); Sodium 134 mEq/L (136-145); Troponin I < 0.03 ng/mL (< 0.04); eGFR For African Americans > 60 (> 60); eGFR For Non-African Americans > 60 (> 60)
[2021-10-20] MEDS ORDERED: Acetaminophen 325 MG TABLET PO PRN (21:05)
[2021-10-20] MEDS ORDERED: Melatonin 3 MG TABLET PO PRN (21:05)
[2021-10-20] MEDS ORDERED: Naloxone 0.4 MG/ML INJ IVP PRN (21:05)
[2021-10-20] MEDS ORDERED: Ondansetron 4 MG/2 ML VIAL IVP PRN (21:05)
[2021-10-20] MEDS ORDERED: D5% in Water 1,000 ML IVC PRN (22:18)
[2021-10-20] MEDS ORDERED: Dextrose Gel 15 GM/37.5 ML TUBE PO PRN ×2 (22:18)
[2021-10-20] MEDS ORDERED: *HR* Dextrose 50 % in Water (Syg) 50 ML SYRINGE IVP PRN (22:18)
[2021-10-20] MEDS: Nicotine 21 MG PATCH.TD24 TD SCH (23:30)
[2021-10-21] MEDS ORDERED: Albuterol 2.5 MG/3 ML NEBULIZER IH PRN (07:12)
[2021-10-21] MEDS ORDERED: Perflutren Lipid Microsphere 1.3 ML in 0.9 % Sodium Chloride 8.7 ML IVP PRN (07:26)
[2021-10-21] MEDS: Nicotine 21 MG PATCH.TD24 TD SCH (08:27)
[2021-10-21] MEDS: Insulin LISPRO 300 UNITS/3 ML VIAL SUBQ SCH ×4 (08:28→19:53)
[2021-10-21] MEDS: Apixaban 5 MG TABLET PO SCH ×2 (08:28→19:52)
[2021-10-21 09:05] LABS: Basophils # 0.1 K/mcL (0.0-0.2); Basophils % 0.7 %; Eosinophils # 0.2 K/mcL (0.0-0.6); Eosinophils % 2.4 %; Hematocrit 31.4 % (35.3-44.9); Hemoglobin 9.8 g/dL (11.5-15.4); Immature Granulocytes % 0.4 % (0-4); Lymphocytes # 2.9 K/mcL (0.6-4.6); Lymphocytes % 34.2 %; Mean Corpuscular HGB Conc 31.2 g/dL (31.6-35.5); Mean Corpuscular Volume 76.8 fL (83.0-100.0); Monocytes # 0.5 K/mcL (0.0-1.3); Monocytes % 5.3 %; Neutrophils # 4.8 K/mcL (1.6-8.9); Platelet Count 346 K/mcL (140-400); Red Blood Count 4.09 M/mcL (3.82-4.97); Red Cell Distribution Width 15.1 % (11.5-14.5); White Blood Count 8.5 K/mcL (4.3-11.1)
[2021-10-21 09:24] LABS: Alanine Aminotransferase 6 Units/L (7-52); Albumin 3.9 g/dL (3.5-5.7); Albumin/Globulin Ratio 1.4 (1.1-2.2); Alkaline Phosphatase 146 Units/L (34-104); Aspartate Amino Transferase 11 Units/L (13-39); Bilirubin,Total 0.5 mg/dL (0.3-1.0); Blood Urea Nitrogen 5 mg/dL (8-23); Calcium 9.3 mg/dL (8.6-10.3); Carbon Dioxide 28 mEq/L (23-29); Chloride 98 mEq/L (98-107); Globulin 2.8 g/dL (2.4-3.5); Glucose 206 mg/dL (70-105); Magnesium 1.5 mg/dL (1.6-2.6); Osmolality,Calculated 285 (280-300); Phosphorous 3.2 mg/dL (2.7-4.5); Sodium 136 mEq/L (136-145); Total Protein 6.7 g/dL (6.4-8.9); Troponin I < 0.03 ng/mL (< 0.04)
[2021-10-21 12:41] LABS: BUN/Creatinine Ratio 6 (6-26); eGFR For African Americans > 60 (> 60); eGFR For Non-African Americans > 60 (> 60)
[2021-10-21] MEDS: levETIRAcetam 250 MG TABLET PO SCH (17:27)
[2021-10-21] MEDS: carvediloL 25 MG TABLET PO SCH (17:27)
[2021-10-21] MEDS: Gabapentin 100 MG CAPSULE PO SCH (19:52)
[2021-10-22] MEDS: levETIRAcetam 250 MG TABLET PO SCH ×2 (05:16→17:07)
[2021-10-22] MEDS: Insulin LISPRO 300 UNITS/3 ML VIAL SUBQ SCH ×4 (07:39→20:29)
[2021-10-22] MEDS: Nicotine 21 MG PATCH.TD24 TD SCH (07:40)
[2021-10-22] MEDS: Apixaban 5 MG TABLET PO SCH ×2 (07:40→20:06)
[2021-10-22] MEDS: carvediloL 25 MG TABLET PO SCH ×2 (07:41→17:08)
[2021-10-22] MEDS: amLODIPine 5 MG TABLET PO SCH (07:43)
[2021-10-22] MEDS: Furosemide 20 MG TABLET PO SCH (07:43)
[2021-10-22] MEDS: Spironolactone 25 MG TABLET PO SCH (07:43)
[2021-10-22] MEDS: Cholecalciferol (D-3) 1,000 UNIT (25MCG) TABLET PO SCH (07:43)
[2021-10-22] MEDS: PARoxetine 20 MG TABLET PO SCH (07:43)
[2021-10-22] MEDS: Gabapentin 100 MG CAPSULE PO SCH (20:06)
[2021-10-23] MEDS: levETIRAcetam 250 MG TABLET PO SCH (05:13)
[2021-10-23 05:48] LABS: Basophils % 0.5 %; Eosinophils # 0.3 K/mcL (0.0-0.6); Eosinophils % 2.9 %; Hemoglobin 8.9 g/dL (11.5-15.4); Immature Granulocytes % 0.2 % (0-4); Lymphocytes # 3.6 K/mcL (0.6-4.6); Lymphocytes % 40.6 %; Mean Corpuscular HGB Conc 30.7 g/dL (31.6-35.5); Mean Corpuscular Hemoglobin 23.7 pg (28.0-33.3); Mean Corpuscular Volume 77.3 fL (83.0-100.0); Mean Platelet Volume 9.2 fL (9.4-12.4); Monocytes # 0.5 K/mcL (0.0-1.3); Monocytes % 5.3 %; Neutrophils # 4.5 K/mcL (1.6-8.9); Platelet Count 336 K/mcL (140-400); Red Blood Count 3.75 M/mcL (3.82-4.97); Red Cell Distribution Width 15.1 % (11.5-14.5); Segmented Neutrophils % 50.5 %; White Blood Count 8.8 K/mcL (4.3-11.1)
[2021-10-23 06:25] LABS: BUN/Creatinine Ratio 10 (6-26); Blood Urea Nitrogen 9 mg/dL (8-23); Calcium 8.8 mg/dL (8.6-10.3); Carbon Dioxide 26 mEq/L (23-29); Chloride 96 mEq/L (98-107); Glucose 204 mg/dL (70-105); Osmolality,Calculated 277 (280-300); Potassium 3.7 mEq/L (3.5-5.1); Sodium 131 mEq/L (136-145); eGFR For African Americans > 60 (> 60); eGFR For Non-African Americans > 60 (> 60)
[2021-10-23 07:12] VITALS: BP 148/70; PULSE 67; TEMP 97.6; O2SAT 96
[2021-10-23] MEDS: Cholecalciferol (D-3) 1,000 UNIT (25MCG) TABLET PO SCH (08:06)
[2021-10-23] MEDS: carvediloL 25 MG TABLET PO SCH (08:06)
[2021-10-23] MEDS: Apixaban 5 MG TABLET PO SCH (08:07)
[2021-10-23] MEDS: Furosemide 20 MG TABLET PO SCH (08:07)
[2021-10-23] MEDS: amLODIPine 5 MG TABLET PO SCH (08:08)
[2021-10-23] MEDS: Spironolactone 25 MG TABLET PO SCH (08:08)
[2021-10-23] MEDS: PARoxetine 20 MG TABLET PO SCH (08:09)
[2021-10-23] MEDS: Nicotine 21 MG PATCH.TD24 TD SCH (08:12)
[2021-10-23] MEDS: Insulin LISPRO 300 UNITS/3 ML VIAL SUBQ SCH (08:13)
== END 2021-10-23 11:06 | disposition home health service (06) ==
LOC: EMEROOARM 16:22 → 3BNU 16:22 → SUATTDRO 20:21 → 3BNU 20:51
PROVIDERS: ADMIT Internal Medicine; ATTEND Family Medicine

== ENCOUNTER 2022-02-23 09:38 | Observation (INO) ==
[2022-02-23 10:30] LABS: Hematocrit 30.2 % (35.3-44.9); Mean Platelet Volume 9.1 fL (9.4-12.4)
[2022-02-23 10:31] LABS: Hemoglobin 8.6 g/dL (11.5-15.4); Mean Corpuscular HGB Conc 28.5 g/dL (31.6-35.5); Mean Corpuscular Volume 70.4 fL (83.0-100.0); Platelet Count 373 K/mcL (140-400); Red Blood Count 4.29 M/mcL (3.82-4.97); Red Cell Distribution Width 16.3 % (11.5-14.5); White Blood Count 10.7 K/mcL (4.3-11.1)
[2022-02-23 10:45] LABS: Albumin 4.2 g/dL (3.5-5.7); Albumin/Globulin Ratio 1.5 (1.1-2.2); Bilirubin,Indirect 0.3 mg/dL (0.0-1.0); Bilirubin,Total 0.3 mg/dL (0.3-1.0); Calcium 9.3 mg/dL (8.6-10.3); Globulin 2.8 g/dL (2.4-3.5); Potassium 3.5 mEq/L (3.5-5.1)
[2022-02-23 12:19] LABS: Bacteria,Urine Many per hpf (None-Few); Bilirubin,Urine Negative (Negative); Blood,Urine Negative (Negative); Clarity,Urine Turbid (Clear); Color,Urine Yellow (Yellow); Glucose,Urine (UA) 500 mg/dL (Normal); Ketones,Urine Negative (Negative); Leukocyte Esterase,Urine Negative (Negative); Mucus,Urine Few per lpf (None-Few); Nitrite,Urine Negative (Negative); Protein,Urine >=600 mg/dL (Neg-Trace); RBC,Urine 0-3 per hpf (0-3); Specific Gravity,Urine 1.023 (1.010-1.025); Squamous Epithelial Cell,Urine Few per hpf (None-Few)
[2022-02-23] MEDS ORDERED: cefTRIAXone 1,000 MG in 0.9 % Sodium Chloride Mini Bag 100 ML IVPB STA (13:10)
[2022-02-23] MEDS ORDERED: Naloxone 0.4 MG/ML INJ IVP PRN (14:22)
[2022-02-23] MEDS ORDERED: Ondansetron ODT 4 MG TAB.RAPDIS SL PRN (14:22)
[2022-02-23] MEDS: Nicotine 21 MG PATCH.TD24 TD SCH (17:03)
[2022-02-23] MEDS: carvediloL 25 MG TABLET PO SCH (17:04)
[2022-02-23] MEDS: levETIRAcetam 250 MG TABLET PO SCH (17:04)
[2022-02-23] MEDS ORDERED: Gabapentin 100 MG CAPSULE PO SCH (21:00)
[2022-02-23] MEDS: Apixaban 5 MG TABLET PO SCH (21:57)
[2022-02-24 03:20] LABS: Basophils # 0.1 K/mcL (0.0-0.2); Basophils % 0.6 %; Eosinophils # 0.3 K/mcL (0.0-0.6); Eosinophils % 3.3 %; Hematocrit 27.1 % (35.3-44.9); Hemoglobin 7.9 g/dL (11.5-15.4); Immature Granulocytes % 0.3 % (0-4); Lymphocytes # 2.4 K/mcL (0.6-4.6); Lymphocytes % 30.3 %; Mean Corpuscular HGB Conc 29.2 g/dL (31.6-35.5); Mean Corpuscular Volume 68.6 fL (83.0-100.0); Mean Platelet Volume 9.2 fL (9.4-12.4); Monocytes # 0.6 K/mcL (0.0-1.3); Monocytes % 7.1 %; Neutrophils # 4.6 K/mcL (1.6-8.9); Platelet Count 333 K/mcL (140-400); Red Blood Count 3.95 M/mcL (3.82-4.97); Red Cell Distribution Width 16.1 % (11.5-14.5); Segmented Neutrophils % 58.4 %; White Blood Count 7.8 K/mcL (4.3-11.1)
[2022-02-24 03:41] LABS: BUN/Creatinine Ratio 11 (6-26); Blood Urea Nitrogen 13 mg/dL (8-23); Carbon Dioxide 25 mEq/L (23-29); Chloride 100 mEq/L (98-107); Glucose 190 mg/dL (70-105); Osmolality,Calculated 283 (280-300); Potassium 3.7 mEq/L (3.5-5.1); Sodium 134 mEq/L (136-145)
[2022-02-24 03:42] LABS: Troponin I < 0.03 ng/mL (< 0.04)
[2022-02-24 03:52] LABS: Hypochromasia Present (Not Present)
[2022-02-24 03:53] LABS: Microcytosis Present (Not Present); Platelet Estimate Normal (Normal)
[2022-02-24] MEDS: levETIRAcetam 250 MG TABLET PO SCH ×2 (06:02→17:04)
[2022-02-24 07:37] VITALS: TEMP 97.4
[2022-02-24] MEDS: Nicotine 21 MG PATCH.TD24 TD SCH (08:23)
[2022-02-24] MEDS: Apixaban 5 MG TABLET PO SCH (08:23)
[2022-02-24] MEDS: carvediloL 25 MG TABLET PO SCH ×2 (08:23→17:04)
[2022-02-24] MEDS ORDERED: amLODIPine 5 MG TABLET PO SCH (09:00)
[2022-02-24] MEDS ORDERED: Aspirin Enteric Coated 325 MG Tablet PO SCH (09:00)
[2022-02-24] MEDS ORDERED: Furosemide 20 MG TABLET PO SCH (09:00)
[2022-02-24] MEDS ORDERED: PARoxetine 20 MG TABLET PO SCH (09:00)
[2022-02-24] MEDS ORDERED: Cholecalciferol (D-3) 1,000 UNIT (25MCG) TABLET PO SCH (09:00)
[2022-02-24 12:02] VITALS: O2SAT 94
[2022-02-24 17:03] VITALS: BP 179/75; PULSE 83
== END 2022-02-24 17:10 | disposition home or self-care (01) ==
LOC: 3ANU 09:38 → EMEROOARM 09:38 → SUATTDRO 14:05 → 3ANU 15:27
PROVIDERS: ADMIT Internal Medicine; ATTEND Internal Medicine